=== PATIENT | male | born 1975 | race Caucasian/White ===

== ENCOUNTER 2023-04-07 08:02 | Outpatient (OUT) | payer OTHER, BC, SELFPAY ==
[2023-04-07 08:36] LABS: Basophils Absolute Auto 0.1 10^3/uL (0.0-0.1); Basophils Percent Auto 0.7 % (0.2-2.0); Eosinophils Absolute Auto 0.2 10^3/uL (0.0-0.7); Hematocrit 42.3 % (42.0-54.0); Hemoglobin 14.8 g/dL (14.0-18.0); Immature Granulocytes Abs Auto 0.15 10^3/uL (0.00-0.03); Immature Granulocytes Pct Auto 1.4 % (0.0-0.5); Lymphocytes Absolute Auto 2.8 10^3/uL (1.2-3.8); Lymphocytes Percent Auto 25.6 % (20.5-60.0); Mean Corpuscular Hemoglobin 29.8 pg (25.9-34.0); Mean Corpuscular Volume 85.3 fL (80.0-94.0); Mean Platelet Volume 9.2 fL (9.5-13.5); Monocytes Absolute Auto 0.7 10^3/uL (0.3-0.8); Monocytes Percent Auto 6.2 % (1.7-12.0); Neutrophils Percent Auto 64.1 % (43.0-75.0); Platelet Count 286 10^3/uL (150-450); Red Blood Count 4.96 10^6/uL (4.70-6.10); Red Cell Distribution Width 12.4 % (11.0-15.0)
[2023-04-07 09:24] LABS: Alanine Aminotransferase 25 U/L (16-63); Albumin Globulin Ratio 0.9; Albumin Level 3.6 g/dL (3.4-5.0); Alkaline Phosphatase 90 U/L (46-116); Anion Gap 12.6; Aspartate Amino Transferase 10 U/L (15-37); BUN Creatinine Ratio 16.7; Bilirubin Total 0.8 mg/dL (0.2-1.0); Calcium 8.8 mg/dL (8.5-10.1); Carbon Dioxide 28.3 mmol/L (21.0-32.0); Chloride 103 mmol/L (98-107); Chol HDL Ratio 4.2; Cholesterol 106 mg/dL (<=200); Estimated GFR (African America >60 (>=60); Estimated GFR (Non-African Ame >60 (>=60); Glucose 170 mg/dL (74-106); HDL Cholesterol 25 mg/dL (40-60); Potassium 3.9 mmol/L (3.5-5.1); Sodium 140 mmol/L (136-145); Thyroid Stimulating Hormone 0.439 uIU/mL (0.358-3.740); Total Protein 7.6 g/dL (6.4-8.2); Triglycerides 237 mg/dL (<=150); VLDL CHOLESTEROL 47.4 mg/dL
[2023-04-07 09:47] LABS: Estimated Average Glucose 157 mg/dL; Glycohemoglobin A1C 7.1 % (4.5-6.2)
[2023-04-08 08:10] LABS: Albumin, Random Urine 20.3 ug/mL (Not Estab.)
[2023-04-08 16:12] LABS: Cortisol - AM 8.5 ug/dL (6.2-19.4)
[2023-04-11 04:08] LABS: Aldosterone LCMS, Serum 4.8 ng/dL (0.0-30.0)
[2023-04-12 11:12] LABS: Metanephrine, Pl 25.4 pg/mL (0.0-88.0); Normetanephrine, Pl 40.5 pg/mL (0.0-218.9)
== END 2023-04-07 08:03 | disposition home or self-care (01) ==
LOC: LAB 08:08
PROVIDERS: PCP Internal Medicine; Visit Provider Internal Medicine
DX: E78.5 Hyperlipidemia, unspecified (principal); F41.1 Generalized anxiety disorder; I10 Essential (primary) hypertension; E11.9 Type 2 diabetes mellitus without complications
CPT/HCPCS: 36415; 80053; 80061; 82043; 82088; 82533; 82570; 83036; 84443; 85025

== ENCOUNTER 2024-04-19 13:36 | Outpatient (OUT) | payer OTHER, BC, SELFPAY ==
[2024-04-19 16:00] LABS: Estimated Average Glucose 163 mg/dL; Glycohemoglobin A1C 7.3 % (4.5-6.2)
[2024-04-19 16:15] LABS: Alanine Aminotransferase 28 U/L (16-63); Albumin Globulin Ratio 0.9; Albumin Level 3.6 g/dL (3.4-5.0); Alkaline Phosphatase 80 U/L (46-116); Anion Gap 10.5; Aspartate Amino Transferase 11 U/L (15-37); BUN Creatinine Ratio 18.2; Bilirubin Total 0.9 mg/dL (0.2-1.0); Calcium 9.2 mg/dL (8.5-10.1); Carbon Dioxide 28.9 mmol/L (21.0-32.0); Chloride 99 mmol/L (98-107); Chol HDL Ratio 5.8; Cholesterol 157 mg/dL (<=200); Estimated GFR (African America >60 (>=60); Estimated GFR (Non-African Ame >60 (>=60); Globulin 3.8 g/dL; Glucose 154 mg/dL (74-106); HDL Cholesterol 27 mg/dL (40-60); Potassium 3.4 mmol/L (3.5-5.1); Sodium 135 mmol/L (136-145); Total Protein 7.4 g/dL (6.4-8.2); Triglycerides 430 mg/dL (<=150)
[2024-04-19 16:22] LABS: LDL Cholesterol Direct 78 mg/dL
[2024-04-19 16:51] LABS: Basophils Absolute Auto 0.1 10^3/uL (0.0-0.1); Basophils Percent Auto 0.7 % (0.2-2.0); Eosinophils Absolute Auto 0.2 10^3/uL (0.0-0.7); Eosinophils Percent Auto 1.9 % (0.9-7.0); Hematocrit 46.4 % (42.0-54.0); Hemoglobin 15.9 g/dL (14.0-18.0); Immature Granulocytes Abs Auto 0.17 10^3/uL (0.00-0.03); Immature Granulocytes Pct Auto 1.5 % (0.0-0.5); Lymphocytes Absolute Auto 3.4 10^3/uL (1.2-3.8); Lymphocytes Percent Auto 30.1 % (20.5-60.0); Mean Corpuscular HGB Conc 34.3 g/dL (29.9-35.2); Mean Corpuscular Hemoglobin 29.8 pg (25.9-34.0); Mean Corpuscular Volume 87.1 fL (80.0-94.0); Mean Platelet Volume 10.3 fL (9.5-13.5); Monocytes Absolute Auto 0.7 10^3/uL (0.3-0.8); Monocytes Percent Auto 6.3 % (1.7-12.0); Neutrophils Absolute Auto 6.7 10^3/uL (1.4-6.5); Neutrophils Percent Auto 59.5 % (43.0-75.0); Platelet Count 281 10^3/uL (150-450); Red Blood Count 5.33 10^6/uL (4.70-6.10); Red Cell Distribution Width 12.5 % (11.0-15.0); White Blood Count 11.3 10^3/uL (4.0-11.0)
== END 2024-04-19 13:37 | disposition home or self-care (01) ==
LOC: LAB 13:37
PROVIDERS: PCP Internal Medicine; Visit Provider Internal Medicine
DX: E78.2 Mixed hyperlipidemia (principal); Z95.5 Presence of coronary angioplasty implant and graft; E11.9 Type 2 diabetes mellitus without complications
CPT/HCPCS: 36415; 80053; 80061; 83036; 83721; 85025

== ENCOUNTER 2024-07-20 09:04 | Outpatient (OUT) | payer OTHER, BC, SELFPAY ==
[2024-07-20 09:43] LABS: Creatinine Urine Random 199.21 mg/dL (20.00-300.00); Microalbum Creatinine Ratio Ur 15.5 mg/g (0.0-29.9); Microalbumin Urine Random 3.1 mg/dL (<=30.0)
[2024-07-20 09:55] LABS: Basophils Absolute Auto 0.1 10^3/uL (0.0-0.1); Basophils Percent Auto 0.6 % (0.2-2.0); Eosinophils Absolute Auto 0.2 10^3/uL (0.0-0.7); Eosinophils Percent Auto 1.5 % (0.9-7.0); Hematocrit 46.8 % (42.0-54.0); Hemoglobin 16.5 g/dL (14.0-18.0); Immature Granulocytes Abs Auto 0.08 10^3/uL (0.00-0.03); Immature Granulocytes Pct Auto 0.6 % (0.0-0.5); Lymphocytes Absolute Auto 2.8 10^3/uL (1.2-3.8); Lymphocytes Percent Auto 21.3 % (20.5-60.0); Mean Corpuscular HGB Conc 35.3 g/dL (29.9-35.2); Mean Corpuscular Hemoglobin 30.3 pg (25.9-34.0); Mean Corpuscular Volume 85.9 fL (80.0-94.0); Mean Platelet Volume 10.9 fL (9.5-13.5); Monocytes Absolute Auto 0.6 10^3/uL (0.3-0.8); Monocytes Percent Auto 4.5 % (1.7-12.0); Neutrophils Absolute Auto 9.5 10^3/uL (1.4-6.5); Neutrophils Percent Auto 71.5 % (43.0-75.0); Platelet Count 230 10^3/uL (150-450); Red Blood Count 5.45 10^6/uL (4.70-6.10); Red Cell Distribution Width 11.9 % (11.0-15.0); White Blood Count 13.3 10^3/uL (4.0-11.0)
[2024-07-20 10:03] LABS: Alanine Aminotransferase 28 U/L (16-63); Albumin Globulin Ratio 0.8; Albumin Level 3.2 g/dL (3.4-5.0); Alkaline Phosphatase 96 U/L (46-116); Anion Gap 11.3; Aspartate Amino Transferase 26 U/L (15-37); BUN Creatinine Ratio 13.1; Bilirubin Total 1.1 mg/dL (0.2-1.0); Calcium 8.8 mg/dL (8.5-10.1); Carbon Dioxide 29.7 mmol/L (21.0-32.0); Chloride 98 mmol/L (98-107); Chol HDL Ratio 5.6; Cholesterol 145 mg/dL (<=200); Estimated GFR (African America >60 (>=60 mL/min/1.73m^2); Estimated GFR (Non-African Ame 59 (>=60 mL/min/1.73m^2); Globulin 3.8 g/dL; Glucose 299 mg/dL (74-106); HDL Cholesterol 26 mg/dL (40-60); Sodium 135 mmol/L (136-145); Triglycerides 417 mg/dL (<=150); VLDL CHOLESTEROL 83.4 mg/dL
[2024-07-20 10:07] LABS: Estimated Average Glucose 252 mg/dL; Glycohemoglobin A1C 10.4 % (4.5-6.2)
[2024-07-22 14:29] LABS: LDL Cholesterol Direct 47 mg/dL
== END 2024-07-20 09:05 | disposition home or self-care (01) ==
LOC: LAB 09:07
PROVIDERS: PCP Internal Medicine
DX: E78.2 Mixed hyperlipidemia (principal); I10 Essential (primary) hypertension; E11.9 Type 2 diabetes mellitus without complications
CPT/HCPCS: 36415; 80053; 80061; 82043; 82570; 83036; 83721; 85025

== ENCOUNTER 2024-11-22 15:19 | Outpatient (OUT) | payer OTHER, BC, SELFPAY ==
--- OUTSIDE RECORDS SUMMARY | 2024-11-22 15:39 | XMS_ITS | CCD ---
Author Organization [facility] Care Team Providers Care Business Systems Manager Name Role Phone NOHEMI AGARWAL Primary Care Unavailable BARBARA TONY Admitting Unavailable UNKNOWN, PHYSICIAN Referring Unavailable KIRK RIGGS Attending Unavailable DANTE, MICHAEL Admitting Unavailable DANTE, MICHAEL Attending Unavailable SHAIKH Sukumar LINDER Primary Care Unavailable DANTE, MICHAEL Consulting Unavailable SHAIKH LINDER H Admitting Unavailable SHAIKH Sukumar LINDER Attending Unavailable SHAIKH Sukumar LINDER Consulting Unavailable MISC, DR WRYA Admitting Unavailable MISC, DR WRAY Attending Unavailable STEFANO, DR GARCIA Primary Care Unavailable MISC, DR WRAY Consulting Unavailable STEFANO, DR GARCIA Primary Care Unavailable PAY ., DR ROSE Admitting Unavailable PAY ., DR ROSE Attending Unavailable [place], DR BLAYNE Piedra Consulting Unavailable PAY ., DR ROSE Consulting Unavailable STEFANO, DR GARCIA Primary Care Unavailable HOMAR CORCORAN Admitting Unavailable NILO, HOMAR Attending Unavailable HOMAR CORCORAN Consulting Unavailable KALI ., GHANSHYAM Consulting Unavailable LORI APONTE Consulting Unavailable DANTE, MICHAEL Admitting Unavailable DANTE, MICHAEL Attending Unavailable STEFANO, DR GARCIA Primary Care Unavailable FADI DHILLON Attending Unavailable Niyah FORRESTER, Unavailable Umberto Lindo MD Primary Care Provider [phone] Niko AIR POLLUTION SPECIALIST, Arcelia Unavailable [phone] Arcelia Pope Attending UnavailArcelia Silverman Admitting Unavaila rahul Pope AIR POLLUTION SPECIALIST, Arcelia Unavailable [phone] BRINDA HOWELL Attending Unavailable SHAIKH LINDER Attending Unavailable ARCELIA POPE Attending UnavailARCELIA Angulo Attending Unavailabl katie Allergies Allergy Classification Reported Allergen(s) Allergy Type Date of Onset Reaction(s) Facility (3 sources) Codeine; Translations: [CODEINE] Drug Allergy 04-06-2014 [facility] Repository (16 sources) Codeine Drug Allergy 08-03-2023 Other [facility] Medications Current Medications Medication Drug Class(es) Dates Sig (Normalized) Sig (Original) amLODIPine 10 mg oral tablet (16 sources) Dihydropyridine Calcium Channel Ami Start: 02-19-2024 End: 07-22-2024 take 1 tablet by mouth once daily amLODIPine (Norvasc) 10 MG tablet Indications: Essential (primary) hypertension (CMS/HCC) , Essential hypertension (CMS/HCC) TAKE 1 TABLET BY MOUTH EVERY DAY 90 tablet 1 07/22/2024 Active aspirin 81 mg chewable tablet (19 sources) Platelet Aggregation Inhibitor, Nonsteroidal Anti-inflammatory Drug Start: 07-09-2023 End: 09-19-2024 Aspirin Low Dose 81 MG chewable tablet Indications: Mixed hyperlipidemia (CMS/HCC) CHEW AND SWALLOW 1 TABLET DAILY 90 tablet 1 09/19/2024 Active atorvastatin 80 mg oral tablet (16 sources) HMG-CoA Reductase Inhibitor Start: 05-31-2023 take 1 tablet by mouth at bedtime atorvastatin (Lipitor) 80 MG tablet Take 80 mg by mouth at bedtime 05/31/2023 Active busPIRone hydrochloride 10 mg oral tablet (17 sources) Start: 03-25-2024 End: 04-20-2024 take 1 tablet by mouth twice daily busPIRone (Buspar) 10 MG tablet Indications: Generalized anxiety disorder (CMS/HCC) TAKE 1 TABLET BY MOUTH TWICE A DAY 180 tablet 1 04/20/2024 Active carvedilol 25 mg oral tablet (16 sources) alpha-Adrenergic Ami, beta-Adrenergic Ami Start: 02-22-2024 End: 07-22-2024 take 1 tablet by mouth twice daily carvedilol (Coreg) 25 MG tablet Indications: Essential (primary) hypertension (CMS/HCC) , Essential hypertension (CMS/HCC) TAKE 1 TABLET BY MOUTH TWICE A DAY 180 tablet 1 07/22/2024 Active Continuous Blood Gluc Sensor (FreeStyle Ingrid 2 Sensor) misc (16 sources) Start: 03-06-2023 Continuous Blood Gluc Sensor (FreeStyle Ingrid 2 Sensor) [facility] Units in the morning. 03/06/2023 Active dapagliflozin 5 mg oral tablet (2 sources) Sodium-Glucose Cotransporter 2 Inhibitor Start: 11-06-2024 End: 02-04-2025 take 1 tablet by mouth once daily dapagliflozin (Farxiga) 5 MG Indications: Type 2 diabetes mellitus with other specified complication (CMS/HCC) , Pure hyperglyceridemia (CMS/HCC) , Coronary artery disease involving [place] coronary artery of [place] heart without angina pectoris (CMS/HCC) , Essential (primary) hypertension (CMS/HCC) Take 1 tablet (5 mg) by mouth Daily 90 tablet 11/06/2024 02/04/2025 Active metFORMIN hydrochloride 500 mg oral tablet (19 sources) Biguanide Start: 08-01-2023 End: 07-24-2024 take 1 tablet by mouth in the morning metFORMIN (Glucophage) 500 MG tablet Indications: Type 2 diabetes mellitus without complications (CMS/HCC) Take 1 tablet (500 mg) by mouth in the morning and 1 tablet (500 mg) before bedtime. 180 tablet 07/24/2024 Active omega-3 acid ethyl esters (sen[facility] living) 1000 mg oral capsule (13 sources) Start: 04-24-2024 End: 04-24-2025 take 1 capsule by mouth at bedtime omega-3 acid ethyl esters (Lovaza) 1 g capsule Indications: Mixed hyperlipidemia (CMS/HCC) Take 2 capsules (2 g) by mouth in the morning and 2 capsules (2 g) before bedtime. 120 capsule 11 04/24/2024 04/24/2025 Active semaglutide 14 mg oral tablet (19 sources) Start: 04-25-2024 End: 07-23-2025 take 1 tablet by mouth before mealtime semaglutide (Rybelsus) 14 MG tablet Indications: Type 2 diabetes mellitus without complications (CMS/HCC) Take 1 tablet (14 mg) by mouth in the morning. Take before meals. 30 tablet 11 07/23/2024 07/23/2025 Active Start: 11-13-2023 End: 04-24-2024 take 1 tablet by mouth before mealtime semaglutide (Rybelsus) 7 MG tablet Indications: Type 2 diabetes mellitus without complications (CMS/HCC) Take 1 tablet (7 mg) by mouth in the morning. Take before meals. 90 tablet 11/13/2023 04/24/2024 Discontinued (Dose adjustment) sildenafil 50 mg oral tablet (16 sources) Phosphodiesterase 5 Inhibitor Start: 02-22-2024 sildenafil (Viagra) 50 MG tablet Indications: Other male erectile dysfunction TAKE 1 TAB DAILY NEEDED 30 MINUTES TO 4 HOURS PRIOR TO SEXUAL ACTIVITY 9 tablet 3 02/22/2024 Active varenicline 1 mg oral tablet (20 sources) Partial Cholinergic Nicotinic Agonist Start: 07-24-2024 End: 12-06-2024 take 1 tablet by mouth once in the morning varenicline (Chantix Continuing ) 1 MG tablet Indications: Tobacco dependency Take 1 tablet (1 mg) by mouth in the morning and 1 tablet (1 mg) before bedtime. Take with full glass of water.. 60 tablet 1 11/06/2024 12/06/2024 Active Start: 04-24-2024 take 1 tablet by sis th once daily Varenicline Tartrate, Starter, (Chantix Starting ) 0.5 MG X 11 & 1 MG X 42 tablet therapy pack Indications: Tobacco dependency Take 1 tablet by mouth Daily 53 each 04/24/2024 Active Start: 04-24-2024 take 1 tablet by sis th once daily Varenicline Tartrate, Starter, (Chantix Starting ) 0.5 MG X 11 & 1 MG X 42 tablet therapy pack Indications: Tobacco dependency Take 1 tablet by mouth Daily 53 each 04/24/2024 Active Start: 01-22-2024 End: 10-22-2024 take 1 tablet by mouth once daily Varenicline Tartrate, Starter, 0.5 MG X 11 & 1 MG X 42 tablet therapy pack Indications: Tobacco dependency TAKE 1 TABLET BY MOUTH EVERY DAY DIRECTED ON PACKAGE 53 each 07/22/2024 07/24/2024 Discontinued (Therapy completed) Completed/Discontinued Medications Medication Drug Class(es) Dates Sig (Normalized) Sig (Original) hydroCHLOROthiazide 25 mg / losartan potassium 100 mg oral tablet (18 sources) Thiazide Diuretic, Angiotensin 2 Receptor Ami Start: 02-19-2024 End: 11-06-2024 take 1 tablet by mouth once daily losartan-hydroCHL OROthiazide (Hyzaar) 100-25 MG tablet Indications: Essential (primary) hypertension (CMS/HCC) , Essential hypertension (CMS/HCC) TAKE 1 TABLET BY MOUTH EVERY DAY 90 tablet 1 07/22/2024 11/06/2024 Discontinued (Reorder) Problems Active Problems Problem Classification Problem Date Documented Date Episodic/Chronic Acute myocardial infarction (1 source) Non-ST elevation (NSTEMI) myocardial infarction; Translations: [NON-ST ELEVATION MYOCARDIAL INFARCT] Onset: 03-30-2022 Chronic Anxiety disorders (1 source) Generalized anxiety disorder; Translations: [Generalized anxiety disorder] 04-20-2024 Chronic Coronary atherosclerosis and other heart disease (20 sources) Atherosclerotic heart disease of [place] coronary artery without angina pectoris; Translations: [Old myocardial infarction] Onset: 07-04-2022 Chronic Diabetes mellitus with complications (5 sources) Type 2 diabetes mellitus; Translations: [Type 2 diabetes mellitus with other specified complication] Onset: 11-06-2024 11-06-2024 Chronic Disorders of lipid metabolism (20 sources) Hyperlipidemia, unspecified; Translations: [Mixed hyperlipidemia] Onset: 07-04-2022 Chronic Essential hypertension (20 sources) Essential (primary) hypertension; Translations: [Essential hypertension] Onset: 07-04-2022 Chronic Hypertension with complications and secondary hypertension (2 sources) Hypertensive urgency; Translations: [Hypertensive emergency] Onset: 02-16-2022 Chronic Other male genital disorders (16 sources) Other male erectile dysfunction; Translations: [Impotence of organic origin] Onset: 08-22-2023 08-22-2023 Chronic Substance-related disorders (20 sources) Nicotine dependence, cigarettes, uncomplicated; Translations: [Tobacco dependence syndrome] Onset: 03-30-2022 Resolved: 11-06-2024 08-22-2023 Chronic Unclassified (1 source) CONTACT W/AND (SUSP) EXPOS COVID-19; Translations: [CONTACT W/AND (SUSP) EXPOS COVID-19] Onset: 03-30-2022 Past or Other Problems Problem Classification Problem Date Documented Date Episodic/Chronic Coronary atherosclerosis and other heart disease (6 sources) Presence of coronary angioplasty implant and graft; Translations: [PRESENCE COR ANGPLSTY IMPLANT AND GRAFT] Onset: 04-19-2022 Episodic Diabetes mellitus without complication (20 sources) Type 2 diabetes mellitus without complications; Translations: [Type 2 diabetes mellitus] Onset: 07-04-2022 Resolved: 11-06-2024 08-22-2023 Chronic Nausea and vomiting (4 sources) Vomiting, unspecified; Translations: [Nausea with vomiting, unspecified] Onset: 02-11-2022 Episodic Noninfectious gastroenteritis (1 source) Noninfective gastroenteritis and colitis, unspecified; Translations: [NONINFECTIVE GE AND COLITIS UNS] Onset: 02-16-2022 Episodic Nonspecific chest pain (3 sources) Other chest pain; Translations: [OTHER CHEST PAIN] Onset: 03-28-2022 Episodic Other aftercare (1 source) Other oysterman (current) drug therapy; Translations: [OTH CARE HOME CURRENT DRUG THERAPY] Onset: 03-30-2022 Episodic Other injuries and conditions due to external causes (1 source) Underdosing of other antihypertensive drugs, initial encounter; Translations: [UNDRDOS OTH ANTIHYPERTENSIV RX INIT] Onset: 03-30-2022 Episodic Residual codes; unclassified (1 source) Patient's intentional underdosing of medication regimen for other reason; Translations: [PT INTENT UNDERDOS MED OTH REASON] Onset: 03-30-2022 Episodic Residual codes; unclassified (1 source) Patient's other noncompliance with medication regimen; Translations: [PT OTH NONCOMPLIANCE W/ MED REGIMEN] Onset: 02-16-2022 Episodic Results Test Name Value Interpretation Reference Range Facility LDL Cholesterol Measuredon 1 09-22-2023 LDL Cholesterol Measured 47 mg/dL Normal 0-100 [facility] Comment on above: Result Comment: LDL ATP III CLASSIFICATION LDL less than 100 mg/dL Optimal LDL 100-129 mg/dL Near or above optimal LDL 130-159 mg/dL Borderline high LDL 160-189 mg/dL High LDL greater than 189 mg/dL Very high PERFORMED BY: [place] [address] PATHOLOGIST HAND LEATHER TRIMMER PUSHPA CONWAY M.D. Performed By: #### L DLD, LIPID #### [address] Lipid Panelon 07-22-2024 Cholesterol [Mass/Vol] 144 mg/dL Normal 140-200 [facility] Comment on above: Result Comment: Chol less than 200 mg/dl low risk Chol 201-239 mg/dl borderline risk Chol 240 mg/dl and greater high risk Performed By: #### L DLD, LIPID #### [facility] [address] Cholesterol in HDL [Mass/Vol] 26 mg/dL Normal 23-92 [facility] Comment on above: Result Comment: HDL CHOL ATP-III CLASSIFICATION Cardiovascular Risk HDL > or equal to 60 mg/dL LOW HDL < 40 mg/dL HIGH Performed By: #### L DLD, LIPID #### [facility] [address] Cholesterol.total/C holesterol in HDL [Mass ratio] 5.5 {ratio} Normal <5.0 [facility] Comment on above: Result Comment: PERF ORMED BY: [place] [address] PATHOLOGIST HAND LEATHER TRIMMER PUSHPA CONWAY M.D. Performed By: #### L DLD, LIPID #### [facility] [address] LDL Cholesterol,Calcula griselda 29 mg/dL Normal 0-100 [facility] Comment on above: Result Comment: LDL ATP III CLASSIFICATION LDL less than 100 mg/dL Optimal LDL 100-129 mg/dL Near or above optimal LDL 130-159 mg/dL Borderline high LDL 160-189 mg/dL High LDL greater than 189 mg/dL Very high Performed By: #### L DLD, LIPID #### [facility] [address] Triglyceride w/Reflex 444 mg/dL High 0-149 [facility] Comment on above: Result Comment: TRIG ATP III CLASSIFICATION TRIG less than 150 mg/dL Normal TRIG 150-199 mg/dL Borderline high TRIG 200-500 mg/dL High TRIG greater than 500 mg/dL Very high Standard traceable to the Center for Disease Conrtrol and Prevention (CDC) test method. If the triglyceride result is greater than 400, LDLC and related calculations cannot be calculated and resulted. Performed By: #### L DLD, LIPID #### [facility] [address] VLDL CHOLESTEROL Not performed Normal [facility] Comment on above: Performed By: #### L DLD, LIPID #### [facility] [address] [facility] MICROALB CREAT RATIO RAN DOMon 07-20-2024 CREATININE URINE RANDOM 199.21 mg/dL 20.00 - 300.00 mg/dL [facility] MICROALBUM CREATININE RATIO UR 15.5 mg/g 0.0 - 29.9 mg/g [facility] Comment on above: NO MICROALBUMINURIA 0-29 MG/G CLINICAL MICROALBUMINURIA 30-300 MG/G MACROALBUMINURIA >300 MG/G MICROALBUMIN URINE RANDOM 3.1 mg/dL NINF - 30.0 mg/dL [facility] A1Con 024 Glucose [Mass/Vol] 163 mg/dL [facility] HbA1c (Bld) [Mass fraction] 7.3 % High 4.5 - 6.2 % [facility] Comment on above: ADA RECOMMENDED LIMI T 4.0 - 6.0 ADA THERAPEUTIC TARGET < 7.0 ACTION SUGGESTED > 7.0 Interpretation and review of laboratory results Abnormal [facility] (DIRECT )on 07-04-2022 BILI, CONJUGATED 0.2 mg/dL Normal 0.0-0.2 [facility] Comment on above: Performed By: #### H STROPN, CMADM, LIPA, CMP #### [facility] [address] [place], [place] [address] Dr. Amaya Schultz CREATININE URINEon 2 URINE CREAT 94.14 mg/dL Normal 20.00-300.00 [facility] Comment on above: Performed By: #### C REAU #### [facility] [address] [place], [place] [address] Dr. Amaya Schultz Follow-Upon 07-04-2022 Follow-Up [id number] Omid Nix 1975 M Date Provider Department Center 07/04/2022 FADI PEDERSON [facility] Family History Problem Relation Age of Onset Heart attack Father Family Status - Relation Status Age at Father Level of Service:31745 PA OFFICE/OUTPATIENT ESTABLISHED MOD MDM 30-39 MIN Reason for Visit and Comments: Coronary Artery Disease [187] Hypertension [356536] Normal [facility] LIPID PROFILEon 07-04-2022 CHOL-HDL RATIO NORM SEE BELOW Normal [facility] Comment on above: Result Comment: 3.3 - 4.4 LOW RISK 4.4 - 7.1 AVERAGE RISK 7.1 - 11.0 MODERATE RISK >11.0 HIGH RISK Performed By: #### C MP, LIPID #### [facility] [address] [place] [address] [address] Amaya Schultz Cholesterol [Mass/Vol] 98 mg/dL Normal <=200 [facility] Comment on above: Performed By: #### C MP, LIPID #### [facility] [address] [place] [address] [address] Amaya Schultz Cholesterol in HDL [Mass/Vol] 26 mg/dL Critically low 40-60 [facility] Comment on above: Performed By: #### C MP, LIPID #### [facility] [address] [place] [address] [address] Amaya Schultz Cholesterol in LDL [Mass/Vol] 36.2 mg/dL Normal [facility] Comment on above: Performed By: #### C MP, LIPID #### [facility] [address] [place] [address] [address] Amaya Schultz Cholesterol.total/C holesterol in HDL [Mass ratio] 3.8 {ratio} Normal [facility] Comment on above: Performed By: #### C MP, LIPID #### [facility] [address] [place] [address] [address] Amaya Schultz HDL NORMAL > or = 60 mg/dl - LO W CARDIOVASCULAR RISK <40 mg/dl - HIGH CARDIOVASCULAR RISK Normal [facility] Comment on above: Performed By: #### C MP, LIPID #### [facility] [address] [place] [address] [address] Amaya Schultz LDL CALC NORMAL SEE BELOW Normal [facility] Comment on above: Result Comment: <100 mg/dl OPTIMAL 100 - 129 mg/dl NEAR OR ABOVE OPTIMAL 130 - 159 mg/dl BORDERLINE HIGH 160 - 189 mg/dl HIGH >190 mg/dl VERY HIGH Performed By: #### C MP, LIPID #### [facility] [address] [place] [address] [address] Amaya Schultz Triglyceride [Mass/Vol] 179 mg/dL Critically high <=150 [facility] Comment on above: Performed By: #### C MP, LIPID #### [facility] [address] [place] [address] Dr. Amaya Schultz VLDL CALC 35.8 mg/dL Normal [facility] Comment on above: Performed By: #### C MP, LIPID #### [facility] [address] [place] [address] [address] Amaya Schultz MICROALBUMIN, RAND URon 06-15 mALB <1.3 Normal <=30.0 [facility] Comment on above: Performed By: #### H STROPN, CMADM, LIPA, CMP #### [facility] [address] [place] [address] Dr. Amaya Schultz PROF 14(COMP METB)on 022 Albumin [Mass/Vol] 3.8 g/dL Normal 3.4-5.0 [facility] Comment on above: Performed By: #### C MP, LIPID #### [facility] [address] [place] [address] Dr. Amaya Schultz Albumin/Globulin [Mass ratio] 1.0 {ratio} Normal [facility] Comment on above: Performed By: #### C MP, LIPID #### [facility] [address] [place] [address] Dr. Amaya Schultz ALP [Catalytic activity/Vol] 99 U/L Normal 46-[address] [facility] Comment on above: Performed By: #### C MP, LIPID #### [facility] [address] [place] [address] Dr. Amaya Schultz ALT [Catalytic activity/Vol] 25 U/L Normal 16-63 [facility] Comment on above: Performed By: #### C MP, LIPID #### [facility] [address] [place] [address] Dr. Amaya Schultz Anion gap [Moles/Vol] 10.6 mmol/L Normal [facility] Comment on above: Performed By: #### C MP, LIPID #### [facility] [address] [place] [address] [address] Amaya Schultz AST [Catalytic activity/Vol] 14 U/L Critically low 15-37 [facility] Comment on above: Performed By: #### C MP, LIPID #### [facility] [address] [place] [address] [address] Amaya Schultz Bilirubin [Mass/Vol] 1.0 mg/dL Normal 0.2-1.0 [facility] Comment on above: Performed By: #### C MP, LIPID #### [facility] [address] [place] [address] [address] Amaya Schultz Calcium [Mass/Vol] 8.8 mg/dL Normal 8.5-10.1 [facility] Comment on above: Performed By: #### C MP, LIPID #### [facility] [address] [place] [address] Dr. Amaya Schultz Chloride [Moles/Vol] 99 mmol/L Normal 98-107 [facility] Comment on above: Performed By: #### C MP, LIPID #### [facility] [address] [place] [address] Dr. Amaya Schultz CO2 [Moles/Vol] 28.4 mmol/L Normal 21.0-32.0 [facility] Comment on above: Performed By: #### C MP, LIPID #### [facility] [address] [place] [address] Dr. Amaya Schultz Creatinine [Mass/Vol] 1.10 mg/dL Normal 0.70-1.30 [facility] Comment on above: Performed By: #### C MP, LIPID #### [facility] [address] [place] [address] Dr. Amaya Schultz EGFR-AF TONGAN >60 Normal >=60 [facility] Comment on above: Performed By: #### C MP, LIPID #### [facility] [address] [place] [address] Dr. Amaya Schultz EGFR-NON AF TONGAN >60 Normal >=60 [facility] Comment on above: Performed By: #### C MP, LIPID #### [facility] [address] [place] [address] [address] Amaya Schultz Globulin (S) [Mass/Vol] 3.7 g/dL Normal [facility] Comment on above: Performed By: #### C MP, LIPID #### [facility] [address] [place] [address] [address] Amaya Schultz Glucose [Mass/Vol] 145 mg/dL Critically high 74-106 [facility] Comment on above: Performed By: #### C MP, LIPID #### [facility] [address] [place] [address] [address] Amaya Schultz Potassium [Moles/Vol] 4.0 mmol/L Normal 3.5-5.1 [facility] Comment on above: Performed By: #### C MP, LIPID #### [facility] [address] [place] [address] Dr. Amaya Schultz Protein [Mass/Vol] 7.5 g/dL Normal 6.4-8.2 [facility] Comment on above: Performed By: #### C MP, LIPID #### [facility] [address] [place] [address] Dr. Amaya Schultz Sodium [Moles/Vol] 134 mmol/L Critically low 136-145 [facility] Comment on above: Performed By: #### C MP, LIPID #### [facility] [address] [place] [address] [address] Amaya Schultz Urea nitrogen [Mass/Vol] 28.0 mg/dL Critically high 7.0-18.0 [facility] Comment on above: Performed By: #### C MP, LIPID #### [facility] [address] [place] [address] Dr. Amaya Schultz Urea nitrogen/Creatinine [Mass ratio] 25.5 mg/mg Normal [facility] Comment on above: Performed By: #### C MP, LIPID #### [facility] [address] [place] [address] Dr. Amaya Schultz POC GLUCOSE LABon 04-02-2022 Glucose [Mass/Vol] 196 mg/dL High 70-100 [facility] Comment on above: Performed By: #### 0 [id number], [id number], 23021, [id number], [id number], [id number] #### [facility] [address] [place] [address], [place] BASIC METABOLIC PANELon 03-14 Calcium [Mass/Vol] 8.8 mg/dL Normal 8.6-10.3 [facility] Comment on above: Order Comment: No: D o not add to previous draw Performed By: #### 1 0, [id number] #### [facility] [address] [place] [address], [place] Chloride [Moles/Vol] 105 mmol/L Normal 98-107 [facility] Comment on above: Order Comment: No: D o not add to previous draw Performed By: #### 1 69, [id number] #### [facility] [address] [place] [address], [place] CO2 [Moles/Vol] 21 mmol/L Normal 21-31 [facility] Comment on above: Order Comment: No: D o not add to previous draw Performed By: #### 1 0, [id number] #### [facility] [address] [place] [address], [place] Creatinine [Mass/Vol] 0.80 mg/dL Normal 0.70-1.30 [facility] Comment on above: Order Comment: No: D o not add to previous draw Performed By: #### 1 0, 91647 #### [facility] [address] [place] [address], [place] GFR/1.73 sq M.predicted among non-blacks MDRD (S/P/Bld) [Vol rate/Area] mL/min/{1.73_m2} Normal >60 [facility] Comment on above: Order Comment: No: D o not add to previous draw Result Comment: [facility]'s estimated glomerular filtration rate (eGFR) will no longer include consideration of race in its calculation. The National Kidney Foundation's eGFR Task Force developed new recommendations for the estimation of the glomerular filtration rate in the [place] They recommend immediate implementation of the new equation refit without the race variable in all laboratories because the calculation does not include race. In addition to not including race in the calculation and reporting, it included diversity in its development, and has acceptable performance characteristics and potential consequences that do not disproportionately affect any one group of individuals. Performed By: #### 1 69, [id number] #### [facility] [address] [place] [address], [facility] Glucose [Mass/Vol] 190 mg/dL High 70-100 [facility] Comment on above: Order Comment: No: D o not add to previous draw Performed By: #### 1 69, 11617 #### [facility] [address] [place] [address], [facility] Potassium [Moles/Vol] 4.3 mmol/L Normal 3.5-5.1 [facility] Comment on above: Order Comment: No: D o not add to previous draw Performed By: #### 1 69, 69440 #### [facility] [address] [place] [address], [place] Sodium [Moles/Vol] 133 mmol/L Low 136-145 [facility] Comment on above: Order Comment: No: D o not add to previous draw Performed By: #### 1 69, 34107 #### [facility] [address] [place] [address], [place] Urea nitrogen [Mass/Vol] 13 mg/dL Normal 7-25 [facility] Comment on above: Order Comment: No: D o not add to previous draw Performed By: #### 1 69, 67090 #### [facility] [address] [place] [address], [place] CBC COMPLETE BLOOD COUNTon 0 - Erythrocyte distribution width (RBC) [Ratio] 12.8 % Normal 11.5-15.0 [facility] Comment on above: Order Comment: No: D o not add to previous draw Performed By: #### 0 0071, 68663, 24131, 44403, 67280, 58079 #### [facility] [address] [place] [address], [facility] Hematocrit (Bld) [Volume fraction] 45.0 % Normal 39.0-50.0 [facility] Comment on above: Order Comment: No: D o not add to previous draw Performed By: #### 0 0071, 77893, 68104, 29539, 89232, 45301 #### [facility] [address] [place] [address], [facility] Hemoglobin (Bld) [Mass/Vol] 15.9 g/dL Normal 13.0-17.0 [facility] Comment on above: Order Comment: No: D o not add to previous draw Performed By: #### 0 0071, 00737, 79739, 98831, 59990, 90837 #### [facility] [address] [place] [address], [facility] MCH (RBC) [Entitic mass] 29.6 pg Normal 27.0-33.0 [facility] Comment on above: Order Comment: No: D o not add to previous draw Performed By: #### 0 0071, 89507, 49777, 18963, 24680, 20962 #### [facility] [address] [place] [address], [place] MCHC (RBC) [Mass/Vol] 35.3 g/dL High 32.0-35.0 [facility] Comment on above: Order Comment: No: D o not add to previous draw Performed By: #### 0 0071, 97280, 48228, 35111, 08493, 24897 #### [facility] [address] [place] [address], [place] MCV (RBC) [Entitic vol] 83.8 fL Normal 82.0-98.0 [facility] Comment on above: Order Comment: No: D o not add to previous draw Performed By: #### 0 0071, 83283, 39655, 41389, 70440, 46545 #### [facility] [address] [place] [address], [facility] Nucleated RBC/100 WBC (Bld) [Ratio] 0 % Normal 0-0 [facility] Comment on above: Order Comment: No: D o not add to previous draw Performed By: #### 0 0071, 38997, 53001, 62503, 26984, 76662 #### [facility] [address] [place] [address], [facility] PLAT CNT 249 10*3/uL Normal 150-[address] [facility] Comment on above: Order Comment: No: D o not add to previous draw Performed By: #### 0 0071, 90836, 58829, 38316, 41339, 02027 #### [facility] [address] [place] [address], [facility] RBC (Bld) [#/Vol] 5.37 10*6/uL Normal 4.20-5.70 [facility] Comment on above: Order Comment: No: D o not add to previous draw Performed By: #### 0 0071, 57069, 42414, 68295, 14254, 39953 #### [facility] [address] [place] [address], [facility] WBC (Bld) [#/Vol] 11.52 10*3/uL High 4.00-10.60 [facility] Comment on above: Order Comment: No: D o not add to previous draw Performed By: #### 0 0071, 49124, 90053, 72877, 61131, 48081 #### [facility] [address] [place] [address], [facility] Cardiovascular Lab Reporton 04-01-2022 Cardiovascular Lab Report [facility] Patient Name: Omid Nix [facility] MR #: [id number] Physician: Fadi Shine M.D. Medicine Service Date: 03/31/2022 Division of Birthdate: 1975 Cardiology Room #: [id number] Adult Cardiovascular Services [facility] [address] [place] [id number] Cardiovascular Laboratory Report INDICATION: The patient is a 46-year-old man, who was admitted with spe-AX-pytvoim elevation myocardial infarction. Cardiac catheterization showed severe disease involving the LAD, diagonal, RCA and moderate disease in the circumflex. He was evaluated by Cardiothoracic surgery and deemed not a good candidate for bypass surgery due to small caliber LAD, that was diffusely diseased. Because of that, he was referred for multivessel percutaneous intervention. PROCEDURE: 1. Successful balloon dilatation and drug-eluting stenting of 70% diffuse stenosis in the proximal to mid LAD, reduced to 0% by deployment of a Synergy XD 2.5 x 38 mm drug-eluting stent post dilated up to 3.0 mm at high pressures. 2. Successful balloon dilatation and drug-eluting stenting of 90% ostial to proximal diagonal branch stenosis with a stenosis reduced to 0% by deployment of a Synergy XD 2.25 x 20 mm drug-eluting stent placed in a TAP bifurcation stenting fashion. 3. Successful balloon dilatation and drug-eluting stenting of 90% mid RCA heavy stenosis reduced to 0% by deployment of a Synergy XD 3.5 x 20 mm drug-eluting stent, post dilated to 3.5 mm at high pressures. 4. Administration of intracoronary nitroglycerin. 5. Limited right common femoral angiography. 6. Access in the right common femoral artery under ultrasound guidance. 7. Deployment of Angio-Seal vascular closure device in the right common femoral artery. METHODS: Procedure was explained to the patient with risks and benefits, he signed the consent. He was brought to cath lab technologist in a fasting state. The right groin was prepped and draped in usual fashion. Micropuncture technique and ultrasound guidance were used for access in the right common femoral artery. Inner cannula angiography was performed, followed by upsizing to a 6-Nicarag[place] x 11 cm sheath. Heparin was administered intravenously and therapeutic ACT confirmed during the rest of the procedure and additional heparin given as needed. A 6-Nicaraguan XB3.5 guiding catheter was advanced into the ascending aorta and used to engage the left main coronary artery. Initial setup angiography was performed. A Prowater wire was advanced into the distal 2nd diagonal branch. Another Prowater wire was advanced into the distal LAD. Balloon dilatation in the 2nd diagonal branch ostial to proximal segment was performed using NC Emerge 2.0 x 15 mm balloon inflated repeatedly at 16 atmospheres, this was followed by dilatation in the LAD, proximal to mid segment using NC Emerge 2.5 x 20 mm noncompliant balloon inflated at 16 atmospheres repeatedly. Following that, angiography was performed showing evidence of dissection in the mid LAD. We decided to proceed with stenting of the LAD. A Synergy XD 2.5 x 38 mm drug-eluting stent was advanced and deployed across the proximal to mid LAD at 11 atmospheres. Angiography was performed. Post dilatation of the LAD stent was performed using NC Emerge 2.5 x 20 mm noncompliant balloon inflated up to 16 atmospheres throughout the length of the stented segment in the LAD and angiography was performed. Another Prowater wire was advanced into the 2nd diagonal branch through the LAD stent struts and the previously jailed diagonal branch wire was retracted. At this time, we proceeded with balloon dilatation in the ostium of the 2nd diagonal branch using NC Emerge 2.0 x 15 mm balloon inflated up to 18 atmospheres in the ostial to proximal segment. This was followed by kissing balloon dilatation using NC Emerge 2.0 x 15 mm balloon inflated at 14 atmospheres in the diagonal branch and NC Emerge 2.5 x 20 mm noncompliant balloon inflated at 8 atmospheres in the LAD. Simultaneous deflation of the balloons was performed. Intracoronary nitroglycerin was administered, followed by angiography, which showed evidence of dissection in the diagonal branch. We decided to cover that with a stent, therefore a Synergy XD 2.25 x 20 mm drug-eluting stent was advanced into the 2nd diagonal branch and stenting of the diagonal branch was performed using the T and protrusion, TAP technique. The stent was deployed at 8 atmospheres. The stent balloon was pulled back fci into the LAD and kissing balloon inflation in the LAD and diagonal was performed using the stent balloon in the diagonal branch inflated at 11 atmospheres and the Emerge NC 2.5 x 20 mm noncompliant balloon inflated at 16 atmospheres in the LAD. Angiography was performed. An NC Emerge 3.0 x 8 mm noncompliant balloon (more content not included)... Normal [facility] MAGNESIUM BLOODon 04-01-2022 Magnesium [Mass/Vol] 1.9 mg/dL Normal 1.9-2.7 [facility] Comment on above: Order Comment: No: D o not add to previous draw Performed By: #### 8 [id number] #### [facility] [address] [place] [address], [place] POC GLUCOSE LABon 04-01-2022 Glucose [Mass/Vol] 288 mg/dL High 70-100 [facility] Comment on above: Performed By: #### 8 5499 #### [facility] [address] [place] [address], [place] Glucose [Mass/Vol] 178 mg/dL High 70-100 [facility] Comment on above: Performed By: #### 8 5499 #### [facility] [address] [place] [address], [place] Glucose [Mass/Vol] 182 mg/dL High 70-100 [facility] Comment on above: Performed By: #### 0 0071, 15516, 84324, 11980, 63885, 19901 #### [facility] [address] [place] [address], [place] Glucose [Mass/Vol] 202 mg/dL High 70-100 [facility] Comment on above: Performed By: #### 8 5499 #### [facility] [address] [place] [address], [place] BASIC METABOLIC PANELon 03-14 Calcium [Mass/Vol] 9.0 mg/dL Normal 8.6-10.3 [facility] Comment on above: Order Comment: No: D o not add to previous draw Performed By: #### 8 5499 #### [facility] [address] [place] [address], [place] Chloride [Moles/Vol] 103 mmol/L Normal 98-107 [facility] Comment on above: Order Comment: No: D o not add to previous draw Performed By: #### 8 5499 #### [facility] [address] [place] [address], [place] CO2 [Moles/Vol] 21 mmol/L Normal 21-31 [facility] Comment on above: Order Comment: No: D o not add to previous draw Performed By: #### 8 5499 #### [facility] [address] [place] [address], [facility] Creatinine [Mass/Vol] 0.90 mg/dL Normal 0.70-1.30 [facility] Comment on above: Order Comment: No: D o not add to previous draw Performed By: #### 8 5499 #### [facility] [address] [place] [address], [place] GFR/1.73 sq M.predicted among non-blacks MDRD (S/P/Bld) [Vol rate/Area] mL/min/{1.73_m2} Normal >60 [facility] Comment on above: Order Comment: No: D o not add to previous draw Result Comment: [facility]'s estimated glomerular filtration rate (eGFR) will no longer include consideration of race in its calculation. The National Kidney Foundation's eGFR Task Force developed new recommendations for the estimation of the glomerular filtration rate in the [place] They recommend immediate implementation of the new equation refit without the race variable in all laboratories because the calculation does not include race. In addition to not including race in the calculation and reporting, it included diversity in its development, and has acceptable performance characteristics and potential consequences that do not disproportionately affect any one group of individuals. Performed By: #### 8 [id number] #### [facility] [address] [place] [address], [place] Glucose [Mass/Vol] 247 mg/dL High 70-100 [facility] Comment on above: Order Comment: No: D o not add to previous draw Performed By: #### 8 5499 #### [facility] [address] [place] [address], [place] Potassium [Moles/Vol] 4.1 mmol/L Normal 3.5-5.1 [facility] Comment on above: Order Comment: No: D o not add to previous draw Performed By: #### 8 5499 #### [facility] [address] [place] [address], [place] Sodium [Moles/Vol] 131 mmol/L Low 136-145 [facility] Comment on above: Order Comment: No: D o not add to previous draw Performed By: #### 8 5499 #### [facility] [address] [place] [address], [place] Urea nitrogen [Mass/Vol] 20 mg/dL Normal 7-25 [facility] Comment on above: Order Comment: No: D o not add to previous draw Performed By: #### 8 [id number] #### [facility] [address] [place] [address], [place] CBC COMPLETE BLOOD COUNTon - Erythrocyte distribution width (RBC) [Ratio] 12.5 % Normal 11.5-15.0 [facility] Comment on above: Order Comment: No: D o not add to previous draw Performed By: #### 8 [id number] #### [facility] [address] [place] [address], [facility] Hematocrit (Bld) [Volume fraction] 46.6 % Normal 39.0-50.0 [facility] Comment on above: Order Comment: No: D o not add to previous draw Performed By: #### 8 [id number] #### [facility] [address] [place] [address], [place] Hemoglobin (Bld) [Mass/Vol] 16.5 g/dL Normal 13.0-17.0 [facility] Comment on above: Order Comment: No: D o not add to previous draw Performed By: #### 8 5499 #### [facility] [address] [place] [address], [facility] MCH (RBC) [Entitic mass] 29.4 pg Normal 27.0-33.0 [facility] Comment on above: Order Comment: No: D o not add to previous draw Performed By: #### 8 [id number] #### [facility] [address] [place] [address], [facility] MCHC (RBC) [Mass/Vol] 35.4 g/dL High 32.0-35.0 [facility] Comment on above: Order Comment: No: D o not add to previous draw Performed By: #### 8 [id number] #### [facility] [address] [place] [id number], [facility] MCV (RBC) [Entitic vol] 82.9 fL Normal 82.0-98.0 [facility] Comment on above: Order Comment: No: D o not add to previous draw Performed By: #### 8 [id number] #### [facility] [address] [place] [id number], [facility] Nucleated RBC/100 WBC (Bld) [Ratio] 0 % Normal 0-0 [facility] Comment on above: Order Comment: No: D o not add to previous draw Performed By: #### 8 [id number] #### [facility] [address] [place] [id number], [facility] PLAT CNT 253 10*3/uL Normal 150-[address] [facility] Comment on above: Order Comment: No: D o not add to previous draw Performed By: #### 8 5499 #### [facility] [address] [place] [id number], [facility] RBC (Bld) [#/Vol] 5.62 10*6/uL Normal 4.20-5.70 [facility] Comment on above: Order Comment: No: D o not add to previous draw Performed By: #### 8 5499 #### [facility] [address] [place] [address], [place] WBC (Bld) [#/Vol] 10.77 10*3/uL High 4.00-10.60 [facility] Comment on above: Order Comment: No: D o not add to previous draw Performed By: #### 8 5499 #### [facility] [address] [place] [address], [place] MAGNESIUM BLOODon 03-31-2022 Magnesium [Mass/Vol] 1.9 mg/dL Normal 1.9-2.7 [facility] Comment on above: Order Comment: No: D o not add to previous draw Performed By: #### 8 5499 #### [facility] [address] [place] [address], [place] POC GLUCOSE LABon 03-31-2022 Glucose [Mass/Vol] 251 mg/dL High 70-100 [facility] Comment on above: Performed By: #### 8 5499 #### [facility] [address] [place] [address], [place] Glucose [Mass/Vol] 245 mg/dL High 70-100 [facility] Comment on above: Performed By: #### 0 0071, 22509, 54533, 71739, 63772, 94966 #### [facility] [address] [place] [address], [place] Glucose [Mass/Vol] 221 mg/dL High 70-100 [facility] Comment on above: Performed By: #### 0 0071, 49367, 90833, 74634, 50679, 60100 #### [facility] [address] [place] [address], [place] Glucose [Mass/Vol] 227 mg/dL High 70-100 [facility] Comment on above: Performed By: #### 8 5499 #### [facility] [address] [place] [address], [facility] UFH HEPARIN ASSAYon 03-31-20 UNFRACTIONATED HEPARIN 0.44 IU/mL Normal 0.30-0.70 [facility] Comment on above: Result Comment: Anum roxaban and Apixaban will interfere with the anti Xa assay used to monitor UFH and LMWH. Performed By: #### 0 0071, 63125, 27875, 59643, 11398, 67919 #### [facility] [address] [place] [address], [facility] UNFRACTIONATED HEPARIN 0.33 IU/mL Normal 0.30-0.70 [facility] Comment on above: Result Comment: Anum roxaban and Apixaban will interfere with the anti Xa assay used to monitor UFH and LMWH. Performed By: #### 0 0071, 96650, 13865, 13258, 59018, 77184 #### [facility] [address] [place] [address], [facility] POC GLUCOSE LABon 03-30-2022 Glucose [Mass/Vol] 203 mg/dL High 70-100 [facility] Comment on above: Performed By: #### 8 5499 #### [facility] [address] [place] [address], [place] Glucose [Mass/Vol] 234 mg/dL High 70-100 [facility] Comment on above: Performed By: #### 8 5499 #### [facility] [address] [place] [address], [place] Glucose [Mass/Vol] 180 mg/dL High 70-100 [facility] Comment on above: Performed By: #### 8 5499 #### [facility] [address] [place] [address], [place] Glucose [Mass/Vol] 226 mg/dL High 70-100 [facility] Comment on above: Performed By: #### 8 5499 #### [facility] [address] [facility] POC SARS COV2 ANTIGEN NEGATI VEon 03-30-2022 POC SARS COV2 ANTIGEN NEG Negative Normal NEGATIVE [facility] Comment on above: Result Comment: Nega tive results should be treated as presumptive and confirmation with a molecular assay, if necessary, for patient management, may be performed. Negative results do not rule out SARS-CoV-2 infection and not should be used as the sole basis for treatment or patient management decisions, including infection control decisions. Negative results should be considered in the context of a patient's recent exposures, history, and the presence of clinical signs and symptoms consistent with COVID-19. The Clarity COVID-19 Antigen Rapid Test Cassette is a rapid chromatographic immunoassay intended for the qualitative detection of the nucleocapsid protein antigen from SARS-CoV-2 in direct nasopharyngeal swab (AIR POLLUTION SPECIALIST) specimens from individuals who are suspected of COVID-19 by their healthcare provider within the first six days of symptom onset. Testing is limited to laboratories certified under the Clinical Laboratory Improvement Amendments of 1988 (CLIA), 42 U.S.C. ???263a, that meet the requirements to perform moderate complexity, high complexity, or waived tests. This test is authorized for use at the Point of Care (POC), i.e., in patient care settings operating under a CLIA Certificate of Waiver, Certificate of Compliance, or Certificate of Accreditation. Performed By: #### 8 5499 #### [facility] [address] [place] [address], [facility] UFH HEPARIN ASSAYon 03-30-20 UNFRACTIONATED HEPARIN 0.23 IU/mL Low 0.30-0.70 [facility] Comment on above: Result Comment: Anum roxaban and Apixaban will interfere with the anti Xa assay used to monitor UFH and LMWH. Performed By: #### 0 0071, 46532, 01179, 59361, 91501, 78832 #### [facility] [address] [facility] UNFRACTIONATED HEPARIN 0.29 IU/mL Low 0.30-0.70 [facility] Comment on above: Result Comment: [place] roxaban and Apixaban will interfere with the anti Xa assay used to monitor UFH and LMWH. Performed By: #### 0 0071, 38692, 00591, 78235, 42359, 15682 #### [facility] [address] UNFRACTIONATED HEPARIN 0.33 IU/mL Normal 0.30-0.70 [facility] Comment on above: Result Comment: [place] roxaban and Apixaban will interfere with the anti Xa assay used to monitor UFH and LMWH. Performed By: #### 8 5499 #### [facility] [address] [facility] *MRSA/MSSA DNA NASALon 03-29 *MRSA/MSSA DNA NASAL Clinical Report: (D) Specimen: NASAL SWAB Collected: 03/29/2022 12:46 Status: Final Last Updated: 03/30/2022 13:40 MSSA DNA (Final) Negative MRSA DNA (Final) Negative Normal [facility] Comment on above: Performed By: #### 8 5499 #### [facility] [address] [facility] APTTon 03-29-2022 aPTT Coag (Bld) [Time] 44.3 s High 25.0-35.0 [facility] Comment on above: Order Comment: No: D o not add to previous draw Result Comment: ALL RESULTS MUST BE INTERPRETED WITH RESPECT TO BLOOD DRAWING ARTIFACT OR DILUTION ERROR OF ANTICOAGULANT AT THE TIME OF SAMPLING. THE APTT SHOULD NOT BE USED TO MONITOR UNFRACTIONATED HEPARIN THERAPY, THIS LABORATORY NO LONGER HAS AN ESTABLISHED THERAPEUTIC RANGE BASED ON THE APTT. IT IS RECOMMENDED THAT THE UFH - HEPARIN ASSAY (ANTI-XA ACTIVITY) BE USED FOR THIS PURPOSE. Performed By: #### 0 0071, 20652, 53673, 31930, 45801, 69893 #### [facility] [address] [address] BASIC METABOLIC PANELon 03-14 Calcium [Mass/Vol] 8.5 mg/dL Low 8.6-10.3 [facility] Comment on above: Order Comment: No: D o not add to previous draw Performed By: #### 0 0071, 78541, 22681, 91398, 38315, 18733 #### [facility] [address] [place] [address], [place] Chloride [Moles/Vol] 106 mmol/L Normal 98-107 [facility] Comment on above: Order Comment: No: D o not add to previous draw Performed By: #### 0 0071, 90193, 01829, 94854, 50171, 25864 #### [facility] [address] [place] [address], [place] CO2 [Moles/Vol] 25 mmol/L Normal 21-31 [facility] Comment on above: Order Comment: No: D o not add to previous draw Performed By: #### 0 0071, 09126, 29511, 94764, 86786, 38840 #### [facility] [address] [place] [address], [place] Creatinine [Mass/Vol] 0.88 mg/dL Normal 0.70-1.30 [facility] Comment on above: Order Comment: No: D o not add to previous draw Performed By: #### 0 0071, 11519, 62072, 71798, 59520, 64443 #### [facility] [address] [place] [address], [facility] GFR/1.73 sq M.predicted among non-blacks MDRD (S/P/Bld) [Vol rate/Area] mL/min/{1.73_m2} Normal >60 [facility] Comment on above: Order Comment: No: D o not add to previous draw Result Comment: [facility]'s estimated glomerular filtration rate (eGFR) will no longer include consideration of race in its calculation. The National Kid[employer] Foundation's eGFR Task Force developed new recommendations for the estimation of the glomerular filtration rate in the [place] They recommend immediate implementation of the new equation refit without the race variable in all laboratories because the calculation does not include race. In addition to not including race in the calculation and reporting, it included diversity in its development, and has acceptable performance characteristics and potential consequences that do not disproportionately affect any one group of individuals. Performed By: #### 0 0071, 98938, 65119, 57681, 38175, 23520 #### [facility] [address] [place] [address], [place] Glucose [Mass/Vol] 219 mg/dL High 70-100 [facility] Comment on above: Order Comment: No: D o not add to previous draw Performed By: #### 0 0071, 32664, 74986, 99622, 76548, 82590 #### [facility] [address] [place] [address], [place] Potassium [Moles/Vol] 4.0 mmol/L Normal 3.5-5.1 [facility] Comment on above: Order Comment: No: D o not add to previous draw Performed By: #### 0 0071, 22436, 78332, 53458, 17634, 88472 #### [facility] [address] [place] [address], [place] Sodium [Moles/Vol] 138 mmol/L Normal 136-145 [facility] Comment on above: Order Comment: No: D o not add to previous draw Performed By: #### 0 0071, 86302, 86279, 78003, 90377, 16918 #### [facility] [address] [place] [address], [place] Urea nitrogen [Mass/Vol] 20 mg/dL Normal 7-25 [facility] Comment on above: Order Comment: No: D o not add to previous draw Performed By: #### 0 0071, 32729, 98166, 51790, 89947, 35360 #### [facility] [address] [place] [address], [place] CBC COMPLETE BLOOD COUNTon 0 - Erythrocyte distribution width (RBC) [Ratio] 12.5 % Normal 11.5-15.0 [facility] Comment on above: Order Comment: No: D o not add to previous draw Performed By: #### 0 0071, 78918, 93694, 68918, 41289, 56309 #### [facility] [address] [place] [address], [facility] Hematocrit (Bld) [Volume fraction] 43.3 % Normal 39.0-50.0 [facility] Comment on above: Order Comment: No: D o not add to previous draw Performed By: #### 0 0071, 07605, 25935, 21773, 54842, 13805 #### [facility] [address] [place] [address], [facility] Hemoglobin (Bld) [Mass/Vol] 14.7 g/dL Normal 13.0-17.0 [facility] Comment on above: Order Comment: No: D o not add to previous draw Performed By: #### 0 0071, 07015, 67586, 38372, 47925, 57097 #### [facility] [address] [place] [address], [facility] MCH (RBC) [Entitic mass] 29.2 pg Normal 27.0-33.0 [facility] Comment on above: Order Comment: No: D o not add to previous draw Performed By: #### 0 0071, 26636, 05517, 91616, 39499, 55204 #### [facility] [address] [place] [address], [place] MCHC (RBC) [Mass/Vol] 33.9 g/dL Normal 32.0-35.0 [facility] Comment on above: Order Comment: No: D o not add to previous draw Performed By: #### 0 0071, 41314, 91973, 48823, 51262, 03794 #### [facility] [address] [place] [address], [facility] MCV (RBC) [Entitic vol] 85.9 fL Normal 82.0-98.0 [facility] Comment on above: Order Comment: No: D o not add to previous draw Performed By: #### 0 0071, 04944, 13938, 62984, 93733, 53228 #### [facility] [address] [place] [address], [facility] Nucleated RBC/100 WBC (Bld) [Ratio] 0 % Normal 0-0 [facility] Comment on above: Order Comment: No: D o not add to previous draw Performed By: #### 0 0071, 68340, 29415, 04112, 04766, 95023 #### [facility] [address] [place] [address], [facility] PLAT CNT 258 10*3/uL Normal 150-[address] [facility] Comment on above: Order Comment: No: D o not add to previous draw Performed By: #### 0 0071, 18642, 20276, 74081, 41725, 10411 #### [facility] [address] [place] [address], [facility] RBC (Bld) [#/Vol] 5.04 10*6/uL Normal 4.20-5.70 [facility] Comment on above: Order Comment: No: D o not add to previous draw Performed By: #### 0 0071, 61163, 74635, 29082, 89149, 64771 #### [facility] [address] [place] [address], [facility] WBC (Bld) [#/Vol] 12.17 10*3/uL High 4.00-10.60 [facility] Comment on above: Order Comment: No: D o not add to previous draw Performed By: #### 0 0071, 68353, 51248, 98456, 29085, 50471 #### [facility] [address] [place] [address], [facility] Cardiovascular Lab Reporton 03-29-2022 Cardiovascular Lab Report [facility] Patient Name: Omid Nix [facility] MR #: [id number] Physician: Fadi Garcia of Jan[facility]hillon Medicine Service Date: 03/28/2022 Division of Birthdate: 1975 Cardiology Room #: [id number] Adult Cardiovascular Services [facility] [address] [place], [place] [address] Cardiovascular Laboratory Report INDICATION: The patient is a 46-year-old man with no known prior medical history, who presented with typical anginal pain and elevated cardiac enzymes consistent with pum-PM-reoasil elevation myocardial infarction. He was transferred from the [facility] to our center for further management. He was found to be significantly hypertensive and very elevated blood sugar suggesting uncontrolled systemic hypertension and diabetes. He was referred for cardiac catheterization. PROCEDURE: Bilateral selective coronary angiography from the right radial access. METHODS: Procedure was explained to the patient with risks and benefits, he signed informed consent. He was brought to cath lab technologist in a fasting state. The right wrist area was prepped and draped in usual fashion. Micropuncture technique was used for access in the right radial artery. A 6-Nicaraguan x 11 cm hydrophilic sheath was advanced, verapamil was given through the sheath and heparin was administered intravenously. Bilateral selective coronary angiography was then performed using 6-Nicaraguan JL3.5 and JR5 diagnostic catheters. Catheters were removed. Procedure was concluded. Note that the patient developed radial spasm toward the end of the procedure and intra-arterial nitroglycerin 200 mcg were administered to facilitate retrieval of the access sheath. A TR band was placed for hemostasis. He tolerated the procedure well and he was transferred back to his room. TOTAL SEDATION TIME: 70 minutes. TOTAL FLUORO TIME: 3.67 minutes. TOTAL AIR KERMA: 480 mGy. TOTAL CONTRAST VOLUME: 45 mL. HEMODYNAMICS: AO 197/108, mean 142. CORONARY ANGIOGRAPHY: 1. This is a right dominant circulation. 2. Left main: This arises from left coronary cusp. It bifurcates into left anterior descending and circumflex vessels. Left main is free of significant disease. 3. Left anterior descending: This is a large vessel. It has diffuse 70% stenosis in the mid segment spanning the whole length of the mid LAD. There are 2 large size diagonal branches coming off the mid LAD. The first one has mild disease. The second one has a 90% ostial stenosis. The distal LAD is of smaller caliber, but is free of significant disease. 4. Circumflex vessel: This is large and nondominant. It has mild diffuse disease. The mid circumflex has 50% diffuse stenosis. 5. Right coronary artery: This arises from the right coronary cusp. It is a large and dominant vessel. It has a 90% hazy mid segment stenosis. Distally, it bifurcates into PDA and PLV branches. There is evidence of 70% stenosis at the ostium of the PDA and 70% stenosis at the ostium of the PLV branch. Beyond that, the PDA and PLV branches are free of significant disease. SUMMARY OF THE FINDINGS: 1. Severe 2-vessel coronary artery disease. 2. 90% hazy stenosis in the mid RCA with 70% stenosis at the ostia of the PDA and PLV branches of the RCA. 3. 50% stenosis in the mid circumflex. 4. 70% diffuse mid LAD stenosis and 90% stenosis at the ostium of the 2nd large diagonal branch. 5. Minimal disease in the left main. RECOMMENDATIONS: Given the patient's significant three-vessel disease and diabetes, it is recommended to have a Heart Team approach with Cardiothoracic Surgery Service to determine the best option for revascularization of his coronary artery disease. Should stenting be decided as an option, this should be performed via femoral access given significant radial artery spasm during the diagnostic procedure. Electronically Signed by: Fadi Dhillon M.D. 03/29/2022 10:06 P Fadi Dhillon M.D. Date Dict: 03/28/2022/03:30 P/Fadi Dhillon M.D. Date Trans: 03/29/2022 08:01 Jayden/reg [id number] cc: Nohemi Agarwal M.D. [address] [place] [address] Normal [facility] HEMOGLOBIN A1Con 03-29-2022 Glucose [Moles/Vol] 214 mmol/L Normal [facility] Comment on above: Order Comment: No: D o not add to previous draw Performed By: #### 0 0071, 69650, 79076, 04015, 73049, 88986 #### [facility] [address] [place] [address], [facility] HbA1c (Bld) [Mass fraction] 9.1 % High 4.0-6.0 [facility] Comment on above: Order Comment: No: D o not add to previous draw Performed By: #### 0 0071, 05486, 88125, 64415, 50165, 71333 #### [facility] [address] [place] [address], [facility] LIPID PROFILEon 03-29-2022 Cholesterol [Mass/Vol] 132 mg/dL Normal 120-200 [facility] Comment on above: Order Comment: No: D o not add to previous draw Result Comment: CHOL ESTEROL REFERENCE RANGE: 20 YEARS AND OLDER CARDIOVASCULAR RISK Less than 200 mg/dl Low Risk 200 to 239 mg/dl Borderline Risk 240 mg/dl and greater High Risk Performed By: #### 0 0071, 43100, 55223, 34180, 59467, 22653 #### [facility] [address] [place] [address], [facility] Cholesterol in HDL [Mass/Vol] 20 mg/dL Low 23-92 [facility] Comment on above: Order Comment: No: D o not add to previous draw Result Comment: Slig ht variation in normal range could be due to gender and/or age. HDL CHOLESTEROL REFERENCE RANGE: 20 years and older Cardiovascular Risk > or =60 mg/dL Desirable 40 TO 59 mg/dL Low Risk <40 mg/dL High Risk Performed By: #### 0 0071, 69223, 96104, 50690, 55802, 37357 #### [facility] [address] [place] [address], [facility] Cholesterol in LDL [Mass/Vol] 47 mg/dL Normal 0-130 [facility] Comment on above: Order Comment: No: D o not add to previous draw Result Comment: LDL IS A CALCULATION LDL IS ONLY VALID IF THE TRIG IS LESS THAN 400. Performed By: #### 0 0071, 37615, 56821, 17380, 48465, 61778 #### [facility] [address] [place] [address], [facility] Cholesterol.total/C holesterol in HDL [Mass ratio] 6.6 {ratio} High .0-4.5 [facility] Comment on above: Order Comment: No: D o not add to previous draw Performed By: #### 0 0071, 46553, 23507, 85462, 12622, 84155 #### [facility] [address] [place] [address], [facility] NON-HDL CHOLESTEROL 112 mg/dL Normal [facility] Comment on above: Order Comment: No: D o not add to previous draw Performed By: #### 0 0071, 50011, 00211, 48462, 10518, 91310 #### [facility] [address] [place] [address], [facility] Triglyceride [Mass/Vol] 325 mg/dL High 40-149 [facility] Comment on above: Order Comment: No: D o not add to previous draw Result Comment: TRIG LYCERIDE REFERENCE RANGE: 20 YEARS AND OLDER CARDIOVASCULAR RISK LESS THAN 150 mg/dl LOW RISK 150 TO 199 mg/dl BORDERLINE RISK 200 mg/dl AND GREATER HIGH RISK Performed By: #### 0 0071, 67715, 95785, 15615, 42263, 41025 #### [facility] [address] [place] [address], [facility] VLDL CHOL 65 mg/dL High 0-40 [facility] Comment on above: Order Comment: No: D o not add to previous draw Performed By: #### 0 0071, 37771, 33833, 55962, 52796, 74941 #### [facility] [address] [place] [address], [facility] LIVER BATTERYon 03-29-2022 Albumin [Mass/Vol] 3.5 g/dL Normal 3.5-5.7 [facility] Comment on above: Order Comment: No: D o not add to previous draw Performed By: #### 0 0071, 22011, 94740, 90320, 44387, 49374 #### [facility] [address] [place] [address], [place] ALKALINE PHOSPH 93 IU/L Normal 34-104 [facility] Comment on above: Order Comment: No: D o not add to previous draw Performed By: #### 0 0071, 59391, 04501, 18792, 65936, 46705 #### [facility] [address] [place] [address], [place] ALT [Catalytic activity/Vol] 14 U/L Normal 7-52 [facility] Comment on above: Order Comment: No: D o not add to previous draw Performed By: #### 0 0071, 23360, 33332, 39470, 83859, 91027 #### [facility] [address] [place] [address], [place] AST [Catalytic activity/Vol] 9 U/L Low 13-39 [facility] Comment on above: Order Comment: No: D o not add to previous draw Performed By: #### 0 0071, 85943, 85976, 83500, 29585, 68746 #### [facility] [address] [place] [address], [place] Bilirubin [Mass/Vol] 1.2 mg/dL High 0.3-1.0 [facility] Comment on above: Order Comment: No: D o not add to previous draw Performed By: #### 0 0071, 83651, 20350, 06525, 07766, 34712 #### [facility] [address] [place] [address], [place] Bilirubin.direct [Mass/Vol] 0.2 mg/dL Normal 0.0-0.2 [facility] Comment on above: Order Comment: No: D o not add to previous draw Performed By: #### 0 0071, 44043, 81748, 37826, 27369, 42835 #### [facility] [address] [place] [address], [place] Protein [Mass/Vol] 5.8 g/dL Low 6.0-8.3 [facility] Comment on above: Order Comment: No: D o not add to previous draw Performed By: #### 0 0071, 72449, 45866, 31921, 47133, 37937 #### [facility] [address] [place] [address], [place] MAGNESIUM BLOODon 03-29-2022 Magnesium [Mass/Vol] 2.0 mg/dL Normal 1.9-2.7 [facility] Comment on above: Order Comment: No: D o not add to previous draw Performed By: #### 0 0071, 37198, 85514, 31344, 35112, 33284 #### [facility] [address] [place] [address], [place] PHOSPHORUS BLOODon Phosphate [Mass/Vol] 3.3 mg/dL Normal 2.5-5.0 [facility] Comment on above: Order Comment: No: D o not add to previous draw Performed By: #### 0 0071, 83001, 53097, 25400, 28249, 76212 #### [facility] [address] [place] [address], [place] POC GLUCOSE LABon 03-29-2022 Glucose [Mass/Vol] 207 mg/dL High 70-100 [facility] Comment on above: Performed By: #### 0 0071, 22365, 32310, 78362, 10350, 66025 #### [facility] [address] [place] [address], [place] Glucose [Mass/Vol] 213 mg/dL High 70-100 [facility] Comment on above: Performed By: #### 8 5499 #### [facility] [address] [place] [address], [place] Glucose [Mass/Vol] 275 mg/dL High 70-100 [facility] Comment on above: Performed By: #### 8 5499 #### [facility] [address] [place] [address], [place] Glucose [Mass/Vol] 272 mg/dL High 70-100 [facility] Comment on above: Performed By: #### 8 5499 #### [facility] [address] [place] [address], [place] Glucose [Mass/Vol] 294 mg/dL High 70-100 [facility] Comment on above: Performed By: #### 0 0071, 55265, 69759, 11176, 29017, 36946 #### [facility] [address] [place] [address], [facility] PORTABLE CHEST 1 VIEWon 03-14 PORTABLE CHEST 1 VIEW [facility] Department of Radiology [address] [place] [id number] ===== Patient Name: OMID NIX : 1975 Sex: M Age: Race: White Pt. Location: [id number] Patient Status: I Ordered Date: 03/29/2022 10:10:00 AM Completed Date: 03/29/2022 01:05 PM Requesting Provider: RON REZA Attending Provider: KIRK RIGGS Report Copy To: Signs & Symptoms: Pre-Op Evaluation History: Comments: Atelectasis Exam: PORTABLE CHEST 1 VIEW ===== PORTABLE CHEST 1 VIEW 03/29/2022 1:05 PM CLINICAL INDICATIONS: Pre-Op Evaluation TECHNOLOGIST COMMENTS: patient states pre op for open heart surgery QUESTION FOR THE RADIOLOGIST: Atelectasis PROTOCOL: AP(PA) view was obtained. COMPARISON: None Impression: 1. The lungs are clear. There are no effusions or pneumothorax. The mediastinal structures are unremarkable. Electronically signed: Chuck Covington. Transcribed by: [email or web address], User Resident: Electronically Signed by: CHUCK COVINGTON @ 03/29/2022 01:12 PM Normal [facility] Comment on above: Order Comment: Atele ctasis PROTHROMBIN TIMEon INR Coag (PPP) [Relative time] 1.10 {INR} Normal 0.91-1.16 [facility] Comment on above: Order Comment: No: D o not add to previous draw Result Comment: ACCC P RECOMMENDED INR FOR WARFARIN THERAPY ------ ------- CONDITION INR PROPHYLAXIS OF VENOUS THROMBOSIS 2-3 (HIGH-RISK SURGERY) TREATMENT OF VENOUS THROMBOSIS 2-3 TREATMENT OF PULMONARY EMBOLISM 2-3 PREVENTION OF SYSTEMIC EMBOLISM: 2-3 ACUTE MYOCARDIAL INFARCTION TISSUE HEART VALVES VALVULAR HEART DISEASE ATRIAL FIBRILLATION RECURRENT SYSTEMIC EMBOLISM MECHANICAL HEART VALVE 2.5-3.5 FROM: ORAL ANTICOAGULANTS. MECHANISM OF ACTION, CLINICAL EFFECTIVENESS, AND OPTIMAL THERAPEUTIC RANGE. CHEST 1995;108:231S-246S. Performed By: #### 0 0071, 16095, 26010, 13925, 26323, 36422 #### [facility] [address] PT Coag (PPP) [Time] 14.2 s Normal 12.3-14.8 [facility] Comment on above: Order Comment: No: D o not add to previous draw Result Comment: ALL RESULTS MUST BE INTERPRETED WITH RESPECT TO BLOOD DRAWING ARTIFACT OR DILUTION ERROR OF ANTICOAGULANT AT THE TIME OF SAMPLING. Performed By: #### 0 0071, 27807, 07683, 36510, 04059, 68204 #### [facility] [address] TROPONIN-Ion 03-29-2022 Troponin I.cardiac [Mass/Vol] 0.15 ng/mL Critically high 0.00-0.04 [facility] Comment on above: Result Comment: M-PA EVIOUS CRITICAL RESULT REFERENCE RANGES: 0.00 - 0.04 ng/ml NORMAL 0.05 - 0.50 ng/ml INDETERMINATE > 0.50 ng/ml CONSISTENT WITH AN M.I. Performed By: #### 0 0071, 37423, 35026, 49531, 35761, 42066 #### [facility] [address] [facility] TSH3on 03-29-2022 TSH 3RD GENERATION 0.88 uIU/mL Normal 0.34-5.60 [facility] Comment on above: Order Comment: No: D o not add to previous draw Performed By: #### 0 0071, 83704, 18788, 36962, 99997, 43338 #### [facility] [address] UFH HEPARIN ASSAYon 03-29-20 UNFRACTIONATED HEPARIN 0.22 IU/mL Low 0.30-0.70 [facility] Comment on above: Result Comment: Anum roxaban and Apixaban will interfere with the anti Xa assay used to monitor UFH and LMWH. Performed By: #### 0 0071, 50709, 52504, 11825, 63329, 24651 #### [facility] [address] [place] [address], [facility] UNFRACTIONATED HEPARIN 0.15 IU/mL Critically low 0.30-0.70 [facility] Comment on above: Result Comment: Resu lt checked and called. Accurately read back by Josiane Sosa @1341 Rivaroxaban and Apixaban will interfere with the anti Xa assay used to monitor UFH and LMWH. Performed By: #### 0 0071, 13748, 27446, 20767, 37537, 85537 #### [facility] [address] [place] [address], [facility] UNFRACTIONATED HEPARIN 0.14 IU/mL Critically low 0.30-0.70 [facility] Comment on above: Order Comment: No: D o not add to previous draw Result Comment: Resu lt checked and called. Accurately read back by Nurse [id number] @0711 Rivaroxaban and Apixaban will interfere with the anti Xa assay used to monitor UFH and LMWH. Performed By: #### 0 0071, 18519, 52703, 01279, 00603, 86056 #### [facility] [address] [place] [address], [facility] UNFRACTIONATED HEPARIN 0.11 IU/mL Critically low 0.30-0.70 [facility] Comment on above: Result Comment: Resu lt checked and called. Accurately read back by Shona Chavez at 0015 Rivaroxaban and Apixaban will interfere with the anti Xa assay used to monitor UFH and LMWH. Performed By: #### 0 0071, 25410, 29326, 90290, 53893, 67516 #### [facility] [address] [place] [address], [facility] URINALYSIS REFLEXon 03-29-20 22 Appearance (U) CLEAR Normal CLEAR The [facility] Comment on above: Order Comment: No: D o not add to previous drawCriteria for reflexing a culture was not met. Please call the lab [phone] within 24 hours of collection time if culture is needed Performed By: #### 8 5499 #### [facility] [address] [place] [address], [facility] Bilirubin Ql (U) Negative Normal NEGATIVE The [facility] Comment on above: Order Comment: No: D o not add to previous drawCriteria for reflexing a culture was not met. Please call the lab [id number] within 24 hours of collection time if culture is needed Performed By: #### 8 5499 #### [facility] [address] [place] [address], [place] Color (U) YELLOW Normal YELLOW [facility] Comment on above: Order Comment: No: D o not add to previous drawCriteria for reflexing a culture was not met. Please call the lab [id number] within 24 hours of collection time if culture is needed Performed By: #### 8 [id number] #### [facility] [address] [place] [address], [facility] Glucose Ql (U) >=1000 Abnormal NEGATIVE The [facility] Comment on above: Order Comment: No: D o not add to previous drawCriteria for reflexing a culture was not met. Please call the lab [phone] within 24 hours of collection time if culture is needed Performed By: #### 8 [id number] #### [facility] [address] [place] [address], [facility] Hemoglobin Ql (U) Negative Normal NEGATIVE The [facility] Comment on above: Order Comment: No: D o not add to previous drawCriteria for reflexing a culture was not met. Please call the lab [id number] within 24 hours of collection time if culture is needed Performed By: #### 8 [id number] #### [facility] [address] [place] [address], [facility] KETONE Negative Normal NEGATIVE The [facility] Comment on above: Order Comment: No: D o not add to previous drawCriteria for reflexing a culture was not met. Please call the lab [id number] within 24 hours of collection time if culture is needed Performed By: #### 8 [id number] #### [facility] [address] [place] [address], [facility] LEUK ARPAN Negative Normal NEGATIVE The [facility] Comment on above: Order Comment: No: D o not add to previous drawCriteria for reflexing a culture was not met. Please call the lab [phone] within 24 hours of collection time if culture is needed Performed By: #### 8 [id number] #### [facility] [address] [place] [address], [facility] MICRO NOT DONE Normal The [facility] Comment on above: Order Comment: No: D o not add to previous drawCriteria for reflexing a culture was not met. Please call the lab [id number] within 24 hours of collection time if culture is needed Result Comment: Micr oscopics not performed on urines with negative chemical reactions unless requested in original order Performed By: #### 8 [id number] #### [facility] [address] [place] [address], [facility] Nitrite Ql (U) Negative Normal NEGATIVE The [facility] Comment on above: Order Comment: No: D o not add to previous drawCriteria for reflexing a culture was not met. Please call the lab [phone] within 24 hours of collection time if culture is needed Performed By: #### 8 [id number] #### [facility] [address] [place] [address], [facility] pH (U) 6.0 [pH] Normal 5.0-8.0 The [facility] Comment on above: Order Comment: No: D o not add to previous drawCriteria for reflexing a culture was not met. Please call the lab [id number] within 24 hours of collection time if culture is needed Performed By: #### 8 [id number] #### [facility] [address] [place] [address], [facility] Protein Ql (U) Negative Normal NEGATIVE The [facility] Comment on above: Order Comment: No: D o not add to previous drawCriteria for reflexing a culture was not met. Please call the lab [id number] within 24 hours of collection time if culture is needed Performed By: #### 8 [id number] #### [facility] [address] [place] [address], [facility] SPEC GRAV 1.031 High 1.015-1.020 [facility] Comment on above: Order Comment: No: D o not add to previous drawCriteria for reflexing a culture was not met. Please call the lab [id number] within 24 hours of collection time if culture is needed Performed By: #### 8 [id number] #### [facility] [address] [place] [address], [facility] BASIC METABOLIC PANELon 08 Calcium [Mass/Vol] 8.5 mg/dL Low 8.6-10.3 [facility] Comment on above: Order Comment: No: D o not add to previous draw Performed By: #### 0 0071, 42372, 19777, 85276, 92533, 27860 #### [facility] [address] [place] [address], [facility] Chloride [Moles/Vol] 103 mmol/L Normal 98-107 [facility] Comment on above: Order Comment: No: D o not add to previous draw Performed By: #### 0 0071, 84041, 16092, 90232, 75727, 38713 #### [facility] [address] [place] [address], [place] CO2 [Moles/Vol] 23 mmol/L Normal 21-31 The [facility] Comment on above: Order Comment: No: D o not add to previous draw Performed By: #### 0 0071, 64315, 76389, 10157, 91772, 80003 #### [facility] [address] [place] [address], [place] Creatinine [Mass/Vol] 0.80 mg/dL Normal 0.70-1.30 [facility] Comment on above: Order Comment: No: D o not add to previous draw Performed By: #### 0 0071, 31601, 67470, 90965, 47398, 51960 #### [facility] [address] [place] [address], [facility] GFR/1.73 sq M.predicted among non-blacks MDRD (S/P/Bld) [Vol rate/Area] mL/min/{1.73_m2} Normal >60 [facility] Comment on above: Order Comment: No: D o not add to previous draw Result Comment: The [facility]'s estimated glomerular filtration rate (eGFR) will no longer include consideration of race in its calculation. The National Kid[employer] Foundation's eGFR Task Force developed new recommendations for the estimation of the glomerular filtration rate in the [place] They recommend immediate implementation of the new equation refit without the race variable in all laboratories because the calculation does not include race. In addition to not including race in the calculation and reporting, it included diversity in its development, and has acceptable performance characteristics and potential consequences that do not disproportionately affect any one group of individuals. Performed By: #### 0 0071, 93005, 68423, 24573, 90852, 12148 #### [facility] [address] [place] [address], [facility] Glucose [Mass/Vol] 250 mg/dL High 70-100 The [facility] Comment on above: Order Comment: No: D o not add to previous draw Performed By: #### 0 0071, 39316, 51580, 15824, 54144, 99673 #### [facility] [address] [place] [address], [place] Potassium [Moles/Vol] 4.0 mmol/L Normal 3.5-5.1 [facility] Comment on above: Order Comment: No: D o not add to previous draw Performed By: #### 0 0071, 68269, 52102, 62719, 56713, 09040 #### [facility] [address] [place] [address], [place] Sodium [Moles/Vol] 133 mmol/L Low 136-145 [facility] Comment on above: Order Comment: No: D o not add to previous draw Performed By: #### 0 0071, 51105, 71199, 18646, 19404, 35911 #### [facility] [address] [place] [address], [facility] Urea nitrogen [Mass/Vol] 18 mg/dL Normal 7-25 [facility] Comment on above: Order Comment: No: D o not add to previous draw Performed By: #### 0 0071, 34269, 53258, 59508, 65424, 25778 #### [facility] [address] [place] [address], [facility] CARDIAC ROSETTA 3-6on 2 CK [Catalytic activity/Vol] 134 U/L Normal 39-308 [facility] Comment on above: Performed By: #### H STROPN, CMADM, LIPA, CMP #### [facility] [address] [address] [address] Amaya Schultz CK.MB [Mass/Vol] 2.05 ng/mL Normal <=3.60 The [facility] Comment on above: Performed By: #### H STROPN, CMADM, LIPA, CMP #### [facility] [address] [address] [address] Amaya Schultz HSTROP 187.0 pg/mL Critically high 4.0-76.1 [facility] Comment on above: Result Comment: CUT- OFF POINTS HAVE BEEN ESTABLISHED BASED ON THE FOURTH UNIVERSAL DEFINITIONS OF MYOCARDIAL INFARCTION. THE UPPER REFERENCE LIMIT (URL) OF TROPONIN, DEFINED THE 99TH PERCENTILE OF cTnI DISTRIBUTION IN A REFERENCE POPULATION, HAS BEEN CONFIRMED THE DECISION THRESHOLD FOR NE DIAGNOSIS. Performed By: #### H STROPN, CMADM, LIPA, CMP #### [facility] [address] [address] [address] Amaya Schultz CK [Catalytic activity/Vol] 156 U/L Normal 39-[address] [facility] Comment on above: Performed By: #### H STROPN, CMADM, LIPA, CMP #### [facility] [address] [address] [address] Amaya Schultz CK.MB [Mass/Vol] 2.63 ng/mL Normal <=3.60 [facility] Comment on above: Performed By: #### H STROPN, CMADM, LIPA, CMP #### [facility] [address] [address] [address] Amaya Schultz HSTROP 181.9 pg/mL Critically high 4.0-76.1 [facility] Comment on above: Result Comment: CUT- OFF POINTS HAVE BEEN ESTABLISHED BASED ON THE FOURTH UNIVERSAL DEFINITIONS OF MYOCARDIAL INFARCTION. THE UPPER REFERENCE LIMIT (URL) OF TROPONIN, DEFINED THE 99TH PERCENTILE OF cTnI DISTRIBUTION IN A REFERENCE POPULATION, HAS BEEN CONFIRMED THE DECISION THRESHOLD FOR NE DIAGNOSIS. Performed By: #### H STROPN, CMADM, LIPA, CMP #### [facility] [address] [place] [address] Dr. Amaya Schultz CARDIAC ROSETTA ADMITon 022 CK [Catalytic activity/Vol] 192 U/L Normal 39-308 [facility] Comment on above: Performed By: #### B MP, CMADM #### [facility] [address] [place] [address] Dr. Amaya Schultz CK.MB [Mass/Vol] 2.80 ng/mL Normal <=3.60 [facility] Comment on above: Performed By: #### B MP, CMADM #### [facility] [address] [place] [address] Dr. Aamya Schultz HSTROP 229.5 pg/mL Critically high 4.0-76.1 [facility] Comment on above: Result Comment: CUT- OFF POINTS HAVE BEEN ESTABLISHED BASED ON THE FOURTH UNIVERSAL DEFINITIONS OF MYOCARDIAL INFARCTION. THE UPPER REFERENCE LIMIT (URL) OF TROPONIN, DEFINED THE 99TH PERCENTILE OF cTnI DISTRIBUTION IN A REFERENCE POPULATION, HAS BEEN CONFIRMED THE DECISION THRESHOLD FOR NE DIAGNOSIS. Performed By: #### B MP, CMADM #### [facility] [address] [place] [address] Dr. Amaya Schultz SHALA 50 ng/mL Normal 16-[address] [facility] Comment on above: Performed By: #### B MP, CMADM #### [facility] [address] [address] [address] Amaya Schultz CBC AUTO DIFFon 03-28-2022 BASO # 0.1 103/ul Normal 0.0-0.1 [facility] Comment on above: Performed By: #### H STROPN, CMADM, LIPA, CMP #### [facility] [address] [place] [address] Dr. Amaya Schultz Basophils/100 WBC (Bld) 0.6 % Normal 0.2-2.[address] [facility] Comment on above: Performed By: #### H STROPN, CMADM, LIPA, CMP #### [facility] [address] [place] [address] Dr. Amaya Schultz EO # 0.4 103/ul Normal 0.0-0.[address] [facility] Comment on above: Performed By: #### H STROPN, CMADM, LIPA, CMP #### [facility] [address] [place] [address] Dr. Amaya Schultz Eosinophils/100 WBC (Bld) 3.2 % Normal 0.9-7.[address] [facility] Comment on above: Performed By: #### H STROPN, CMADM, LIPA, CMP #### [facility] [address] [place] [address] Dr. Amaya Schultz Erythrocyte distribution width (RBC) [Ratio] 12.4 % Normal 11.0-15.[address] [facility] Comment on above: Performed By: #### H STROPN, CMADM, LIPA, CMP #### [facility] [address] [place] [address] Dr. Amaya Schultz Hematocrit (Bld) [Volume fraction] 45.1 % Normal 42.0-54.0 [facility] Comment on above: Performed By: #### H STROPN, CMADM, LIPA, CMP #### [facility] [address] [place] [address] Dr. Amaya Schultz Hemoglobin (Bld) [Mass/Vol] 15.6 g/dL Normal 14.0-18.0 [facility] Comment on above: Performed By: #### H STROPN, CMADM, LIPA, CMP #### [facility] [address] [place] [address] Dr. Amaya Schultz IG # 0.10 10e3/ul Critically high 0.00-0.03 [facility] Comment on above: Performed By: #### H STROPN, CMADM, LIPA, CMP #### [facility] [address] [address] [address] Amaya Schultz IG % 0.8 % Critically high 0.0-0.5 [facility] Comment on above: Performed By: #### H STROPN, CMADM, LIPA, CMP #### [facility] [address] [place] [address] Dr. Amaya Schultz LYMPH # 3.2 103/ul Normal 1.2-3.[address] [facility] Comment on above: Performed By: #### H STROPN, CMADM, LIPA, CMP #### [facility] [address] [place] [address] Dr. Amaya Schultz Lymphocytes/100 WBC (Bld) 26.2 % Normal 20.5-60.0 [facility] Comment on above: Performed By: #### H STROPN, CMADM, LIPA, CMP #### [facility] [address] [place] [address] Dr. Amaya Schultz MANUAL DIFF REQ NO Normal [facility] Comment on above: Performed By: #### H STROPN, CMADM, LIPA, CMP #### [facility] [address] [place] [address] Dr. Amaya Schultz MCH (RBC) [Entitic mass] 29.5 pg Normal 25.9-34.[address] [facility] Comment on above: Performed By: #### H STROPN, CMADM, LIPA, CMP #### [facility] [address] [place] [address] Dr. Amaya Schultz MCHC (RBC) [Mass/Vol] 34.6 g/dL Normal 29.9-35.2 [facility] Comment on above: Performed By: #### H STROPN, CMADM, LIPA, CMP #### [facility] [address] [address] [address] Amaya Schultz MCV (RBC) [Entitic vol] 85.3 fL Normal 80.0-94.0 [facility] Comment on above: Performed By: #### H STROPN, CMADM, LIPA, CMP #### [facility] [address] [address] [address] Amaya Schultz MONO # 0.8 103/ul Normal 0.3-0.8 [facility] Comment on above: Performed By: #### H STROPN, CMADM, LIPA, CMP #### [facility] [address] [place] [address] Dr. Amaya Schultz Monocytes/100 WBC (Bld) 6.1 % Normal 1.7-12.0 [facility] Comment on above: Performed By: #### H STROPN, CMADM, LIPA, CMP #### [facility] [address] [place] [address] Dr. Amaya Schultz NEUT # 7.8 103/ul Critically high 1.4-6.5 [facility] Comment on above: Performed By: #### H STROPN, CMADM, LIPA, CMP #### [facility] [address] [place] [address] Dr. Amaya Schultz Neutrophils/100 WBC (Bld) 63.1 % Normal 43.0-75.[address] [facility] Comment on above: Performed By: #### H STROPN, CMADM, LIPA, CMP #### [facility] [address] [address] [address] Amaya Schultz Platelet mean volume (Bld) [Entitic vol] 9.4 fL Critically low 9.5-13.[address] [facility] Comment on above: Performed By: #### H STROPN, CMADM, LIPA, CMP #### [facility] [address] [place] [address] Dr. Amaya Schultz PLT 264 103/ul Normal 150-[address] [facility] Comment on above: Performed By: #### H STROPN, CMADM, LIPA, CMP #### [facility] [address] [place], [place] [address] Dr. Amaya Schultz RBC 5.29 106/ul Normal 4.70-6.[address] [facility] Comment on above: Performed By: #### H STROPN, CMADM, LIPA, CMP #### [facility] [address] [place], [place] [address] Dr. Amaya Schultz WBC 12.4 103/ul Critically high 4.0-11.0 [facility] Comment on above: Performed By: #### H STROPN, CMADM, LIPA, CMP #### [facility] [address] [place], [place] [address] Dr. Amaya Schultz CBC W/DIFFon 03-28-2022 ABS IMM GRANS 0.1 10*3/uL Normal 0.0-0.2 [facility] Comment on above: Performed By: #### 0 0071, 00807, 68012, 12636, 39079, 10689 #### [facility] [address] ABS NEUTROPHILS 8.1 10*3/uL High 1.6-7.6 The [facility] Comment on above: Performed By: #### 0 0071, 78589, 46512, 37665, 24170, 98050 #### [facility] [address] [place] [address], [facility] Basophils (Bld) [#/Vol] 0.1 10*3/uL Normal 0.0-0.2 [facility] Comment on above: Performed By: #### 0 0071, 09911, 36129, 18790, 79434, 05799 #### [facility] [address] [place] [address], [facility] Basophils/100 WBC (Bld) 0.5 % Normal 0.0-1.0 [facility] Comment on above: Performed By: #### 0 0071, 42786, 09740, 54510, 72594, 92731 #### [facility] [address] [place] [address], [facility] Eosinophils (Bld) [#/Vol] 0.2 10*3/uL Normal 0.0-0.5 [facility] Comment on above: Performed By: #### 0 0071, 67256, 50574, 25019, 59531, 41123 #### [facility] [address] [place] [address], [facility] Eosinophils/100 WBC (Bld) 1.8 % Normal 0.0-6.0 [facility] Comment on above: Performed By: #### 0 0071, 29811, 61309, 33050, 67168, 63161 #### [facility] [address] Erythrocyte distribution width (RBC) [Ratio] 12.5 % Normal 11.5-15.0 [facility] Comment on above: Performed By: #### 0 0071, 69896, 37646, 06630, 37514, 80677 #### [facility] [address] [place] [address], [facility] Hematocrit (Bld) [Volume fraction] 44.2 % Normal 39.0-50.0 [facility] Comment on above: Performed By: #### 0 0071, 12425, 69367, 60434, 59913, 36227 #### [facility] [address] [place] [address], [facility] Hemoglobin (Bld) [Mass/Vol] 15.5 g/dL Normal 13.0-17.0 [facility] Comment on above: Performed By: #### 0 0071, 37501, 89933, 40455, 91903, 64033 #### [facility] [address] [place] [address], [facility] IMMATURE GRANS 1.0 % Normal 0.0-1.0 Arnaldo a[facility] Comment on above: Performed By: #### 0 0071, 81632, 13399, 52750, 14038, 29887 #### [facility] [address] [place] [address], [facility] Lymphocytes (Bld) [#/Vol] 2.5 10*3/uL Normal 1.2-4.0 [facility] Comment on above: Performed By: #### 0 0071, 46293, 23589, 15380, 87802, 20087 #### [facility] [address] [facility] [address], [facility] Lymphocytes/100 WBC (Bld) 21.5 % Normal 20.0-45.0 [facility] Comment on above: Performed By: #### 0 0071, 31206, 33219, 03459, 19379, 16683 #### [facility] [address] MCH (RBC) [Entitic mass] 29.4 pg Normal 27.0-33.0 [facility] Comment on above: Performed By: #### 0 0071, 37744, 07853, 28087, 04018, 59836 #### [facility] [address] [facility] [place] [address], [facility] MCHC (RBC) [Mass/Vol] 35.1 g/dL High 32.0-35.0 [facility] Comment on above: Performed By: #### 0 0071, 50373, 57594, 98638, 36485, 19001 #### [facility] [address] [place] [address], [facility] MCV (RBC) [Entitic vol] 83.9 fL Normal 82.0-98.0 [facility] Comment on above: Performed By: #### 0 0071, 23001, 53708, 58861, 96155, 13012 #### [facility] [address] [place] [address], [facility] Monocytes (Bld) [#/Vol] 0.7 10*3/uL Normal 0.1-1.0 [facility] Comment on above: Performed By: #### 0 0071, 80296, 72499, 56755, 01842, 79343 #### [facility] [address] [place] [address], [place] MONOS 5.7 % Normal 5.0-12.0 [facility] Comment on above: Performed By: #### 0 0071, 04029, 86256, 78468, 00627, 82086 #### [facility] [address] [place] [address], [place] Neutrophils/100 WBC (Bld) 69.5 % Normal 40.0-72.0 [facility] Comment on above: Performed By: #### 0 0071, 56355, 84489, 55027, 24995, 01051 #### [facility] [address] [place] [address], [place] Nucleated RBC/100 WBC (Bld) [Ratio] 0 % Normal 0-0 [facility] Comment on above: Performed By: #### 0 0071, 53773, 25591, 87134, 87754, 31394 #### [facility] [address] [place] [address], [place] PLAT CNT 263 10*3/uL Normal 150-[address] [facility] Comment on above: Performed By: #### 0 0071, 65044, 94133, 56932, 64678, 87058 #### [facility] [address] [place] [address], [place] RBC (Bld) [#/Vol] 5.27 10*6/uL Normal 4.20-5.70 The [facility] Comment on above: Performed By: #### 0 0071, 64950, 61126, 43503, 62750, 18416 #### [facility] [address] [place] [address], [place] WBC (Bld) [#/Vol] 11.67 10*3/uL High 4.00-10.60 [facility] Comment on above: Performed By: #### 0 0071, 20084, 60827, 76822, 98449, 99503 #### [facility] [address] [place] [address], [facility] Covid-19 PCR (CVDTB)on 03-14 SARS-CoV-2 (COVID-19) RNA BLANCA+probe Ql (Unsp spec) Not detected Normal NOT DETECTED The [facility] Comment on above: Result Comment: When diagnostic testing is negative, the possibility of a false negative should be considered in the context of a patient's recent exposures and the presence of clinical signs and symptoms consistent with SARS-CoV-2. This test is not yet approved or cleared by the [place] FDA. When there are no FDA-approved or cleared tests available, and other criteria are met, FDA can make tests available under an emergency access mechanism called an Emergency Use Authorization (EUA). The EUA for this test is supported by the Industrial Custodian of Health and Human Service's declaration that circumstances exist to justify the emergency use of in vitro diagnostics for the detection and/or diagnosis of the virus that causes COVID-19. This EUA will remain in effect for the duration of the COVID-19 declaration justifying emergency of IVDs, unless it is terminated or revoked by the FDA (after which the test may no longer be used). Performed By: #### H STROPN, CMADM, LIPA, CMP #### [facility] [address] [place] [address] Dr. Amaya Schultz MAGNESIUM BLOODon 03-28-2022 Magnesium [Mass/Vol] 1.9 mg/dL Normal 1.9-2.7 [facility] Comment on above: Order Comment: No: D o not add to previous draw Performed By: #### 0 0071, 13656, 13261, 58373, 90016, 41854 #### [facility] [address] [place] [address], [facility] POC GLUCOSE LABon 03-28-2022 Glucose [Mass/Vol] 302 mg/dL High 70-100 [facility] Comment on above: Performed By: #### [id number] #### [facility] [address] POC SARS COV2 ANTIGEN NEGATI VEon 03-28-2022 POC SARS COV2 ANTIGEN NEG Negative Normal NEGATIVE [facility] Comment on above: Result Comment: Nega tive results should be treated as presumptive and confirmation with a molecular assay, if necessary, for patient management, may be performed. Negative results do not rule out SARS-CoV-2 infection and not should be used as the sole basis for treatment or patient management decisions, including infection control decisions. Negative results should be considered in the context of a patient's recent exposures, history, and the presence of clinical signs and symptoms consistent with COVID-19. The Clarity COVID-19 Antigen Rapid Test Cassette is a rapid chromatographic immunoassay intended for the qualitative detection of the nucleocapsid protein antigen from SARS-CoV-2 in direct nasopharyngeal swab (AIR POLLUTION SPECIALIST) specimens from individuals who are suspected of COVID-19 by their healthcare provider within the first six days of symptom onset. Testing is limited to laboratories certified under the Clinical Laboratory Improvement Amendments of 1988 (CLIA), 42 U.S.C. ???263a, that meet the requirements to perform moderate complexity, high complexity, or waived tests. This test is authorized for use at the Point of Care (POC), i.e., in patient care settings operating under a CLIA Certificate of Waiver, Certificate of Compliance, or Certificate of Accreditation. Performed By: #### 0 [id number], [id number], [id number], [id number], [id number], [id number] #### [facility] [address] [facility] [place] [address], [facility] PROF CHEM 8 (BAS METB)on Anion gap [Moles/Vol] 11.8 mmol/L Normal [facility] Comment on above: Performed By: #### B MP, CMADM #### [facility] Laboratory [address] [address] [address] Amaya Schultz Calcium [Mass/Vol] 8.5 mg/dL Normal 8.5-10.1 [facility] Comment on above: Performed By: #### B ANTHONY, CMADM #### [facility] Laboratory [address] [address] [address] Amaya Schultz Chloride [Moles/Vol] 101 mmol/L Normal 98-107 [facility] Comment on above: Performed By: #### B ANTHONY, CMADM #### [facility] Laboratory [address] [address] [address] Amaya Schultz CO2 [Moles/Vol] 25.9 mmol/L Normal 21.0-32.0 [facility] Comment on above: Performed By: #### B ANTHONY, CMADM #### [facility] [address] [address] [address] Amaya Schultz Creatinine [Mass/Vol] 1.40 mg/dL Critically high 0.70-1.30 [facility] Comment on above: Performed By: #### B ANTHONY, CMADM #### [facility] [address] [address] [address] Amaya Schultz EGFR-AF TONGAN >60 Normal >=60 [facility] Comment on above: Performed By: #### B ANTHONY, CMADM #### [facility] [address] [address] [address] Amaya Schultz EGFR-NON AF TONGAN 55 mL/min/1.73m2 Critically low >=60 [facility] Comment on above: Performed By: #### B ANTHONY, CMADM #### [facility] [address] [address] [address] Amaya Schultz Glucose [Mass/Vol] 291 mg/dL Critically high 74-106 [facility] Comment on above: Performed By: #### B ANTHONY, CMADM #### [facility] [address] [address] [address] Amaya Schultz Potassium [Moles/Vol] 3.7 mmol/L Normal 3.5-5.1 [facility] Comment on above: Performed By: #### B ANTHONY, CMADM #### [facility] [address] [address] [address] Amaya Schultz Sodium [Moles/Vol] 135 mmol/L Critically low 136-[address] [facility] Comment on above: Performed By: #### B MP, CMADM #### [facility] [address] [place] [address] Dr. Amaya Schultz Urea nitrogen [Mass/Vol] 23.0 mg/dL Critically high 7.0-18.0 [facility] Comment on above: Performed By: #### B MP, CMADM #### [facility] [address] [place] [address] Dr. Amaya Schultz Urea nitrogen/Creatinine [Mass ratio] 16.4 mg/mg Normal [facility] Comment on above: Performed By: #### B MP, CMADM #### [facility] [address] [place] [address] Dr. Amaya Schultz PROTIMEon 03-28-2022 INR Coag (PPP) [Relative time] 1.05 {INR} Normal [facility] Comment on above: Performed By: #### H STROPN, CMADM, LIPA, CMP #### [facility] [address] [place] [address] Dr. Amaya Schultz INR GUIDELINES SEE BELOW Normal [facility] Comment on above: Result Comment: MADHU RED INR: 2.0 - 3.0 CONDITIONS NOT LISTED BELOW 2.5 - 3.5 FOR PROSTHETIC HEART VALVE REPLACEMENT 2.5 - 3.5 RECURRENT THROMBOSIS Performed By: #### H STROPN, CMADM, LIPA, CMP #### [facility] [address] [place] [address] Dr. Amaya Schultz PT Coag (PPP) [Time] 11.3 s Normal 9.0-11.6 [facility] Comment on above: Performed By: #### H STROPN, CMADM, LIPA, CMP #### [facility] [address] [place] [address] Dr. Amaya Schultz PTTon 03-28-2022 aPTT Coag (Bld) [Time] 29.7 s Normal 22.3-36.2 [facility] Comment on above: Performed By: #### H STROPN, CMADM, LIPA, CMP #### [facility] [address] [address] [address] Amaya Schultz TROPONIN-Ion 03-28-2022 Troponin I.cardiac [Mass/Vol] 0.19 ng/mL Critically high 0.00-0.04 [facility] Comment on above: Result Comment: M-TR OPONIN INITIAL CRITICAL HIGH; RESPUN AND RETESTED M-CRITICAL RESULT(S) REVIEWED, CALLED TO AND READ BACK BY [place] RN AT 1414 REFERENCE RANGES: 0.00 - 0.04 ng/ml NORMAL 0.05 - 0.50 ng/ml INDETERMINATE > 0.50 ng/ml CONSISTENT WITH AN M.I. Performed By: #### 0 [id number], [id number], [id number], 84103, 28542, 16385 #### [facility] [address] UFH HEPARIN ASSAYon 03-28-20 22 UNFRACTIONATED HEPARIN 0.37 IU/mL Normal 0.30-0.70 [facility] Comment on above: Result Comment: [place] roxaban and Apixaban will interfere with the anti Xa assay used to monitor UFH and LMWH. Performed By: #### 0 [id number], [id number], [id number], 03286, [id number], [id number] #### [facility] [address] XR CHEST 1 Von 03-28-2022 XR CHEST 1 V EXAM: XR CHEST 1 V HISTORY: CHEST PAIN, UNSPECIFIED COMPARISON: None. TECHNIQUE: AP FINDINGS: Patient is rotated slightly limiting evaluation. The cardiac mediastinal silhouette is stable in size. Bilateral lung colon show no evidence for acute consolidation, infiltrate, pneumothorax or pleural effusions. The diaphragmatic and osseous structures are intact with no evidence for an acute osseous abnormality. IMPRESSION: No acute cardiopulmonary disease. Electronically authenticated by: LORI APONTE Date: 2022-03-28 01:16 Normal [address] [facility] CARDIAC ROSETTA ADMITon 022 CK [Catalytic activity/Vol] 145 U/L Normal 39-[address] [facility] Comment on above: Performed By: #### H STROPN, CMADM, LIPA, CMP #### [facility] [address] [address] [address] Amaya Schultz CK.MB [Mass/Vol] 2.00 ng/mL Normal <=3.60 [facility] Comment on above: Performed By: #### H STROPN, CMADM, LIPA, CMP #### [facility] [address] [place] [address] Dr. Amaya Schultz HSTROP 27.1 pg/mL Normal 4.0-76.[address] [facility] Comment on above: Result Comment: CUT- OFF POINTS HAVE BEEN ESTABLISHED BASED ON THE FOURTH UNIVERSAL DEFINITIONS OF MYOCARDIAL INFARCTION. THE UPPER REFERENCE LIMIT (URL) OF TROPONIN, DEFINED THE 99TH PERCENTILE OF cTnI DISTRIBUTION IN A REFERENCE POPULATION, HAS BEEN CONFIRMED THE DECISION THRESHOLD FOR NE DIAGNOSIS. Performed By: #### H STROPN, CMADM, LIPA, CMP #### [facility] [address] [place] [address] Dr. Amaya Schultz SHALA 66 ng/mL Normal 16-[address] [facility] Comment on above: Performed By: #### H STROPN, CMADM, LIPA, CMP #### [facility] [address] [place] [address] Dr. Amaya Schultz CBC AUTO DIFFon 02-11-2022 BASO # 0.1 103/ul Normal 0.0-0.1 [facility] Comment on above: Performed By: #### C BC #### [facility] [address] [place] [address] Dr. Amaya Schultz Basophils/100 WBC (Bld) 0.4 % Normal 0.2-2.[address] [facility] Comment on above: Performed By: #### C BC #### [facility] [address] [place] [address] Dr. Amaya Schultz EO # 0.1 103/ul Normal 0.0-0.[address] [facility] Comment on above: Performed By: #### C BC #### [facility] [address] [place] [address] Dr. Amaya Schultz Eosinophils/100 WBC (Bld) 0.6 % Critically low 0.9-7.[address] [facility] Comment on above: Performed By: #### C BC #### [facility] [address] [place] [address] Dr. Amaya Schultz Erythrocyte distribution width (RBC) [Ratio] 11.9 % Normal 11.0-15.0 [facility] Comment on above: Performed By: #### C BC #### [facility] [address] [place] [address] Dr. Amaya Schultz Hematocrit (Bld) [Volume fraction] 50.1 % Normal 42.0-54.0 [facility] Comment on above: Performed By: #### C BC #### [facility] [address] [place] [address] Dr. Amaya Schultz Hemoglobin (Bld) [Mass/Vol] 18.0 g/dL Normal 14.0-18.0 [facility] Comment on above: Performed By: #### C BC #### [facility] [address] [place] [address] Dr. Amaya Schultz IG # 0.15 10e3/ul Critically high 0.00-0.03 [facility] Comment on above: Performed By: #### C BC #### [facility] [address] [place] [address] Dr. Amaya Schultz IG % 0.8 % Critically high 0.0-0.5 [facility] Comment on above: Performed By: #### C BC #### [facility] [address] [place] [address] Dr. Amaya Schultz LYMPH # 2.0 103/ul Normal 1.2-3.8 [facility] Comment on above: Performed By: #### C BC #### [facility] [address] [place] [address] Dr. Amaya Schultz Lymphocytes/100 WBC (Bld) 10.1 % Critically low 20.5-60.0 [facility] Comment on above: Performed By: #### C BC #### [facility] [address] [place] [address] Dr. Amaya Schultz MANUAL DIFF REQ NO Normal [facility] Comment on above: Performed By: #### C BC #### [facility] [address] [place], [place] [id number] Dr. Amaya Schultz MCH (RBC) [Entitic mass] 29.6 pg Normal 25.9-34.[address] [facility] Comment on above: Performed By: #### C BC #### [facility] [address] [place] [address] Dr. Amaya Schultz MCHC (RBC) [Mass/Vol] 35.9 g/dL Critically high 29.9-35.[address] [facility] Comment on above: Performed By: #### C BC #### [facility] [address] [place] [address] Dr. Amaya Schultz MCV (RBC) [Entitic vol] 82.4 fL Normal 80.0-94.[address] [facility] Comment on above: Performed By: #### C BC #### [facility] [address] [place] [address] Dr. Amaya Schultz MONO # 0.6 103/ul Normal 0.3-0.[address] [facility] Comment on above: Performed By: #### C BC #### [facility] [address] [place] [address] Dr. Amaya Schultz Monocytes/100 WBC (Bld) 3.2 % Normal 1.7-12.[address] [facility] Comment on above: Performed By: #### C BC #### [facility] [address] [place] [address] Dr. Amaya Schultz NEUT # 16.8 103/ul Critically high 1.4-6.5 [facility] Comment on above: Performed By: #### C BC #### [facility] [address] [place] [address] Dr. Amaya Schultz Neutrophils/100 WBC (Bld) 84.9 % Critically high 43.0-75.[address] [facility] Comment on above: Performed By: #### C BC #### [facility] [address] [place] [address] Dr. Amaya Schultz Platelet mean volume (Bld) [Entitic vol] 9.5 fL Normal 9.5-13.[address] [facility] Comment on above: Performed By: #### C BC #### [facility] [id number] Amaya Schultz PLT 304 103/ul Normal 150-[address] [facility] Comment on above: Performed By: #### C BC #### [facility] [address] [address] [address] Amaya Schultz RBC 6.08 106/ul Normal 4.70-6.10 [facility] Comment on above: Performed By: #### C BC #### [facility] [id number] Amaya Schultz WBC 19.8 103/ul Critically high 4.0-11.0 [facility] Comment on above: Performed By: #### C BC #### [facility] [id number] Amaya Schultz [address] ABD/PELVIS WO CONon 02-11 CT ABD/PELVIS WO CON EXAMINATION: CT ABD/PELVIS WO CON, 02/11/2022 10:05 AM EDT HISTORY: NAUSEA WITH VOMITING, UNSPECIFIED , abdominal pain COMPARISON: None. TECHNIQUE: CT scan of the abdomen and pelvis was performed without IV contrast. CT dose reduction technique was used, including Automated Exposure Control. FINDINGS: LUNG BASES: No visible pulmonary or pleural disease. LIVER: No enlargement, atrophy, abnormal density, or significant focal lesion. BILIARY: No dilatation or calcification. PANCREAS: No lesion, fluid collection, ductal dilatation, or atrophy. SPLEEN: No enlargement or focal lesion. ADRENALS: No mass or enlargement. KIDNEYS: 5 mm nonobstructing nephrolith. No hydronephrosis or obstructing nephrolithiasis BOWEL/MESENTERY: Moderate wall thickening involving the ascending transverse, proximal descending colon with moderate mesenteric stranding and a small amount of free pelvic fluid in the pelvis and right paracolic gutter. Overall nonobstructive bowel gas pattern. Normal appendix. AORTA/VASCULAR: No aortic aneurysm. Moderate atherosclerosis. RETROPERITONEUM: No mass or adenopathy. LYMPH NODES: No adenopathy. URINARY BLADDER: No visible focal wall thickening, lesion, or calculus. PELVIC ORGANS: No visible mass. Pelvic organs appropriate for patient age. ABDOMINAL WALL: No mass or hernia. BONES: No bony lesion or fracture. OTHER: Negative. IMPRESSION: Moderate colitis. In light of the distribution, consider inflammatory or infectious etiology Electronically authenticated by: BLAYNE MORGAN Date: 2022-02-11 10:57 Normal [address] [facility] ER URINE PROFILEon 2 Bilirubin Ql (U) Negative Normal NEGATIVE [facility] Comment on above: Performed By: #### H STROPN, CMADM, LIPA, CMP #### [facility] [address] [address] [address] Amaya Schultz Clarity (U) CLEAR Normal CLEAR [facility] Comment on above: Performed By: #### H STROPN, CMADM, LIPA, CMP #### [facility] [address] [address] [address] Amaya Schultz Color (U) LT. YELLOW Normal YELLOW [facility] Comment on above: Performed By: #### H STROPN, CMADM, LIPA, CMP #### [facility] [address] [address] [address] Amaya ORTIZ A micrscopic examination will be performed if indicated. Normal [facility] Comment on above: Performed By: #### H STROPN, CMADM, LIPA, CMP #### [facility] [address] [address] [address] Amaya Schultz Glucose Ql (U) 1000 mg/dl Abnormal NEGATIVE [facility] Comment on above: Performed By: #### H STROPN, CMADM, LIPA, CMP #### [facility] [address] [address] [address] Amaya Schultz Hemoglobin Ql (U) Negative Normal NEGATIVE [facility] Comment on above: Performed By: #### H STROPN, CMADM, LIPA, CMP #### [facility] [address] [address] [address] Amaya Schultz Ketones Ql (U) 15 mg/dl Abnormal NEGATIVE [facility] Comment on above: Performed By: #### H STROPN, CMADM, LIPA, CMP #### [facility] [address] [address] [address] Amaya Schlutz LEUKOCYTES Negative Normal NEGATIVE [facility] Comment on above: Performed By: #### H STROPN, CMADM, LIPA, CMP #### [facility] [address] [address] [address] Amaya Schultz Nitrite Ql (U) Negative Normal NEGATIVE [facility] Comment on above: Performed By: #### H STROPN, CMADM, LIPA, CMP #### [facility] [address] [address] [address] Amaya Schultz pH (U) 6.0 [pH] Normal 5-9 [facility] Comment on above: Performed By: #### H STROPN, CMADM, LIPA, CMP #### [facility] [address] [place] [address] Dr. Amaya Schultz SPEC GRAVITY 1.010 Normal 1.005-<=1.025 [facility] Comment on above: Performed By: #### H STROPN, CMADM, LIPA, CMP #### [facility] [address] [place] [address] Dr. Amaya Schultz UA PROTEIN Negative Normal NEGATIVE/ TRACE [facility] Comment on above: Performed By: #### H STROPN, CMADM, LIPA, CMP #### [facility] [address] [place] [address] Dr. Amaya Schultz UR MICRO IND NOT INDICATED Normal [facility] Comment on above: Performed By: #### H STROPN, CMADM, LIPA, CMP #### [facility] [address] [place] [address] Dr. Amaya Schultz Urobilinogen Qn (U) 0.2 {Casey'U}/dL Normal 0.2 - 1. 0 [facility] Comment on above: Performed By: #### H STROPN, CMADM, LIPA, CMP #### [facility] [address] [address] [address] Amaya Schultz LIPASEon 02-11-2022 Lipase [Catalytic activity/Vol] 73.0 U/L Normal 73.0-393.0 [facility] Comment on above: Performed By: #### H STROPN, CMADM, LIPA, CMP #### [facility] [address] [place] [address] Dr. Amaya Schultz PROF 14(COMP METB)on 022 Albumin [Mass/Vol] 3.9 g/dL Normal 3.4-5.0 [facility] Comment on above: Performed By: #### H STROPN, CMADM, LIPA, CMP #### [facility] [address] [address] [address] Amaya Schultz Albumin/Globulin [Mass ratio] 1.0 {ratio} Normal [facility] Comment on above: Performed By: #### H STROPN, CMADM, LIPA, CMP #### [facility] [address] [address] [address] Amaya Schultz ALP [Catalytic activity/Vol] 120 U/L Critically high 46-116 [facility] Comment on above: Performed By: #### H STROPN, CMADM, LIPA, CMP #### [facility] [address] [place] [address] Dr. Amaya Schultz ALT [Catalytic activity/Vol] 26 U/L Normal 16-63 [facility] Comment on above: Performed By: #### H STROPN, CMADM, LIPA, CMP #### [facility] [address] [address] [address] Amaya Schultz Anion gap [Moles/Vol] 15.4 mmol/L Normal [facility] Comment on above: Performed By: #### H STROPN, CMADM, LIPA, CMP #### [facility] [address] [address] [address] Amaya Schultz AST [Catalytic activity/Vol] 11 U/L Critically low 15-37 [facility] Comment on above: Performed By: #### H STROPN, CMADM, LIPA, CMP #### [facility] [address] [address] [address] Amaya Schultz Bilirubin [Mass/Vol] 1.0 mg/dL Normal 0.2-1.0 [facility] Comment on above: Performed By: #### H STROPN, CMADM, LIPA, CMP #### [facility] [address] [place] [address] Dr. Amaya Schultz Calcium [Mass/Vol] 9.1 mg/dL Normal 8.5-10.1 [facility] Comment on above: Performed By: #### H STROPN, CMADM, LIPA, CMP #### [facility] [address] [address] [address] Amaya Schultz Chloride [Moles/Vol] 97 mmol/L Critically low 98-107 [facility] Comment on above: Performed By: #### H STROPN, CMADM, LIPA, CMP #### [facility] [address] [address] [address] Amaya Schultz CO2 [Moles/Vol] 26.6 mmol/L Normal 21.0-32.0 [facility] Comment on above: Performed By: #### H STROPN, CMADM, LIPA, CMP #### [facility] [address] [address] [address] Amaya Schultz Creatinine [Mass/Vol] 1.10 mg/dL Normal 0.70-1.30 [facility] Comment on above: Performed By: #### H STROPN, CMADM, LIPA, CMP #### [facility] [address] [address] [address] Amaya Schultz EGFR-AF TONGAN >60 Normal >=60 [facility] Comment on above: Performed By: #### H STROPN, CMADM, LIPA, CMP #### [facility] [address] [address] [address] Amaya Schultz EGFR-NON AF TONGAN >60 Normal >=60 [facility] Comment on above: Performed By: #### H STROPN, CMADM, LIPA, CMP #### [facility] [address] [address] [address] Amaya Schultz Globulin (S) [Mass/Vol] 4.0 g/dL Normal [facility] Comment on above: Performed By: #### H STROPN, CMADM, LIPA, CMP #### [facility] [address] [address] [address] Amaya Schultz Glucose [Mass/Vol] 383 mg/dL Critically high 74-106 [facility] Comment on above: Performed By: #### H STROPN, CMADM, LIPA, CMP #### [facility] [address] [address] [address] Amaya Schultz Potassium [Moles/Vol] 4.0 mmol/L Normal 3.5-5.1 [facility] Comment on above: Performed By: #### H STROPN, CMADM, LIPA, CMP #### [facility] [address] [address] [address] Amaya Schultz Protein [Mass/Vol] 7.9 g/dL Normal 6.4-8.2 [facility] Comment on above: Performed By: #### H STROPN, CMADM, LIPA, CMP #### [facility] [facility] [address] [address] [address] Amaya Schultz Sodium [Moles/Vol] 135 mmol/L Critically low 136-145 [facility] Comment on above: Performed By: #### H STROPN, CMADM, LIPA, CMP #### [facility] [address] [address] [address] Amaya Schultz Urea nitrogen [Mass/Vol] 15.0 mg/dL Normal 7.0-18.0 [facility] Comment on above: Performed By: #### H STROPN, CMADM, LIPA, CMP #### [facility] [address] [address] [address] Amaya Schultz Urea nitrogen/Creatinine [Mass ratio] 13.6 mg/mg Normal [facility] Comment on above: Performed By: #### H STROPN, CMADM, LIPA, CMP #### [facility] [address] [address] [address] Amaya Schultz XR CHEST 1 Von 02-11-2022 XR CHEST 1 V EXAMINATION: XR CHES T 1 V HISTORY: SHORTNESS OF BREATH COMPARISON: No relevant comparison available. TECHNIQUE: AP portable erect FINDINGS: LUNGS: No significant pulmonary parenchymal abnormalities. VASCULATURE: No increased pulmonary vasculature. PLEURA: No pneumothorax, effusion, or pleural thickening. CARDIAC: No cardiomegaly or cardiac silhouette abnormality. MEDIASTINUM: No visible mass or adenopathy. BONES: No fracture or visible bone lesion. OTHER: Negative. IMPRESSION: No acute disease. Electronically authenticated by: BLAYNE MORGAN Date: 2022-02-11 08:36 Normal [facility] Vital Signs Date Time Vital Sign Value Performing Clinician Marti vega 11-06-2024 14:43-0400 Body mass index (BMI) [Ratio] 30.35 kg/m2 Brinda Howell [employer] Work Phone: [facility] 11-06-2024 14:43-0400 Body temperature 98.2 [degF] Brinda Howell [employer]IST Work Phone: [facility] 11-06-2024 14:43-0400 Body weight 90.54 kg Brinda Howell [employer]IST Work Phone: [facility] 11-06-2024 14:43-0400 Diastolic blood pressure 100 mm[Hg] Brinda Howell [employer]IST Work Phone: [facility] 11-06-2024 14:43-0400 Heart rate 73 /min Brinda Howell [employer]IST Work Phone: [facility] 11-06-2024 14:43-0400 Respiratory rate 18 /min Brinda Howell [employer] SPECIALIST Work Phone: [facility] 11-06-2024 14:43-0400 SaO2% (BldA) [Mass fraction] 97 % Brinda Howell [employer]IST Work Phone: [facility] 11-06-2024 14:43-0400 Systolic blood pressure 160 mm[Hg] Brinda Howell [employer]IST Work Phone: [facility] 07-24-2024 13:50-0500 Body height 172.7 cm Arcelia Pope [employer] SPECIALIST Work Phone: [facility] 07-24-2024 13:50-0500 Body mass index (BMI) [Ratio] 30.26 kg/m2 Arcelia Rothmank [employer]IST Work Phone: [facility] 07-24-2024 13:50-0500 Body temperature 98.1 [degF] Arcelia Pope [employer]IST Work Phone: [facility] 07-24-2024 13:50-0500 Body weight 90.27 kg Arcelia Pope [employer]IST Work Phone: [facility] 07-24-2024 13:50-0500 Diastolic blood pressure 88 mm[Hg] Arcelia Pope [employer]IST Work Phone: [facility] 07-24-2024 13:50-0500 Heart rate 66 /min Arcelia Pope [employer]IST Work Phone: [facility] 07-24-2024 13:50-0500 Respiratory rate 16 /min Arcelia Pope [employer]IST Work Phone: [facility] 07-24-2024 13:50-0500 SaO2% (BldA) [Mass fraction] 99 % Arcelia Pope [employer]IST Work Phone: [facility] 07-24-2024 13:50-0500 Systolic blood pressure 133 mm[Hg] Arcelia Pope [employer]IST Work Phone: [facility] 04-24-2024 09:50-0400 Body height 172.7 cm Arcelia Pope [employer]IST Work Phone: [facility] 04-24-2024 09:50-0400 Body mass index (BMI) [Ratio] 30.11 kg/m2 Arcelia Pope [employer]IST Work Phone: [facility] 04-24-2024 09:50-0400 Body temperature 97.9 [degF] Arcelia Pope [employer]IST Work Phone: [facility] 04-24-2024 09:50-0400 Body weight 89.81 kg Arcelia Pope [employer]IST Work Phone: [facility] 04-24-2024 09:50-0400 Diastolic blood pressure 100 mm[Hg] Arcelia Pope [employer]IST Work Phone: [facility] Comment on above: RT ARM 134/100 LG CU FF 04-24-2024 09:50-0400 Heart rate 77 /min Arcelia Pope [employer]IST Work Phone: [facility] Comment on above: 97% O2 04-24-2024 09:50-0400 Systolic blood pressure 130 mm[Hg] Arcelia Pope [employer]IST Work Phone: [facility] Comment on above: RT ARM 134/100 LG CU FF Encounters Encounter Date Encounter Type Care Provider Facility Start: 11-06-2024 End: 11-06-2024 Office outpatient visit 25 minutes Brinda Howell [employer]IST Work Phone: [facility] Comment on above: Type 2 diabetes harley itus with other specified complication (CMS/HCC) (Primary Dx); Pure hyperglyceridemia (CMS/HCC); Coronary artery disease involving [place] coronary artery of [place] heart without angina pectoris (CMS/HCC); Primary hypertension (CMS/HCC); Mixed hyperlipidemia (CMS/HCC); Cigarette nicotine dependence without complication; Essential (primary) hypertension (CMS/HCC); Essential hypertension (CMS/HCC); Tobacco dependency Start: 11-06-2024 End: 11-06-2024 ambulatory BRINDA HOWELL Not Available Start: 11-06-2024 End: 11-06-2024 Bamboo flowsheet Brinda Howell [employer]IST Work Phone: [facility] Start: 11-06-2024 End: 11-06-2024 Bamboo flowsheet Brinda Howell [employer] SPECIALIST Work Phone: [facility] Start: 09-19-2024 End: 09-19-2024 Refill Arcelia Pope [employer]IST Work Phone: [facility] Comment on above: Mixed hyperlipidemia (CMS/HCC) Start: 07-24-2024 End: 07-24-2024 Bamboo flowsheet Arcelia Pope [employer]IST Work Phone: [facility] Start: 07-24-2024 End: 07-24-2024 Bamboo flowsheet Arcelia Goinszpatrick [employer]IST Work Phone: [facility] Start: 07-24-2024 End: 07-24-2024 Office outpatient visit 15 minutes Arcelia Lennontrick [employer]IST Work Phone: [facility] Comment on above: Mixed hyperlipidemia (CMS/HCC) (Primary Dx); Diabetes mellitus type II, non insulin dependent (CMS/HCC); Primary hypertension (CMS/HCC); Type 2 diabetes mellitus without complications (CMS/HCC); Tobacco dependency Start: 07-24-2024 End: 07-24-2024 ambulatory ARCELIA POPE Not Available Start: 07-23-2024 End: 07-23-2024 Orders Only Arcelia Goinszpatrick [employer]IST Work Phone: [facility] Comment on above: Type 2 diabetes harley itus without complications (CMS/HCC) Start: 07-22-2024 End: 07-22-2024 ambulatory Arcelia Darnell GoinsPope Facility:[facility] Start: 07-20-2024 End: 07-20-2024 Clinisync Result Encounter Arcelia Pope [employer]IST Work Phone: [facility] Unsolicited Start: 07-20-2024 End: 07-20-2024 Clinisync Result Encounter Arcelia Pope [employer]IST Work Phone: [facility] Unsolicited Start: 07-19-2024 End: 07-22-2024 Refill Arcelia Pope [employer]IST Work Phone: [facility] Comment on above: Essential (primary) hypertension (CMS/HCC); Essential hypertension (CMS/HCC) Start: 07-18-2024 End: 07-22-2024 Refill Arcelia Pope [employer]IST Work Phone: [facility] Comment on above: Tobacco dependency Start: 04-24-2024 End: 04-24-2024 Bamboo flowsheet Arcelia Pope [employer]IST Work Phone: [facility] Start: 04-24-2024 End: 04-24-2024 Bamboo flowsheet Arcelia Pope [employer]IST Work Phone: [facility] Start: 04-24-2024 End: 04-24-2024 Office outpatient visit 25 minutes Arcelia Pope [employer]IST Work Phone: [facility] Comment on above: Primary hypertension (CMS/HCC) (Primary Dx); Diabetes mellitus type II, non insulin dependent (CMS/HCC); Mixed hyperlipidemia (CMS/HCC); Type 2 diabetes mellitus without complications (CMS/HCC); Tobacco dependency Start: 04-24-2024 End: 04-24-2024 ambulatory ARCELIA POPE Not Available Start: 04-20-2024 End: 04-20-2024 Refill Arcelia Pope [employer]IST Work Phone: [facility] Comment on above: Generalized anxiety disorder (CMS/HCC) Start: 04-19-2024 End: 04-19-2024 Clinisync Result Encounter Shaikh Niyah FORRESTER Work Phone: [facility] Unsolicited Start: 04-19-2024 End: 04-19-2024 Clinisync Result Encounter Shaikh Niyah FORRESTER Work Phone: [facility] Unsolicited Start: 01-22-2024 End: 01-22-2024 ambulatory SHAIKH NIYAH Not Available Start: 08-22-2023 Patient encounter status Shaik sukumar Linder MD Work Phone: [facility] Start: 07-04-2022 End: 07-04-2022 ambulatory [facility] Start: 07-04-2022 End: 07-05-2022 ambulatory MICHAEL HOWELL Facility:[facility] Start: 05-20-2022 ambulatory MICHAEL HOWELL Facility:[facility] Start: 04-19-2022 End: 06-16-[address] DOCTOR SELLERS Facility: Start: 03-28-2022 End: 04-02-2022 Evaluation and management of inpatient NOHEMI AGARWAL Facility:[facility] Start: 03-28-2022 End: 03-28-[address] NOHEMI AGARWAL Facility: Start: 02-11-2022 End: 02-11-[address] NOHEMI AGARWAL Facility: Procedures Date Procedure Procedure Detail Performing Clinician Start: 07-20-2024 [facility] MICROALB CREAT RATIO RANDOM Arcelia Goinszpatrick [employer]IST Work Phone: Start: 04-19-2024 MLR HEMOGLOBIN A1C Miguel Linder MD Work Phone: Start: 07-04-2022 History of placement of stent for coronary artery disease Status post insertion of drug eluting coronary artery stent Shaikh Niyah FORRESTER Work Phone: Plan of Treatment Date Care Activity Detail Author Start: 09-10-2026 Glaucoma screening Diabetes: R etinopathy Screening [facility] Start: 08-24-2026 Screening for malign ant neoplasm of colon [facility] Start: 07-20-2025 Urine screening for protein Diabetes: Urine Protein Screening [facility] Start: 02-06-2025 Hemoglobin A1c measurement Sandra betes: Hemoglobin A1C [facility] Start: 01-01-2025 Influenza vaccination Influenza Vacc ine (#1) [facility] Comment on above: Postponed from 04/14 (Patient Refused) Start: 11-06-2024 End: 11-06-2024 Patient encounter procedure 11/06/2024 2:40 PM EDT Office Visit [facility] [address] [place] [address] Brinda Howell NP [address] [place] [id number] Coronary artery disease involving [place] coronary artery of [place] heart without angina pectoris (CMS/HCC) (Primary Dx); Type 2 diabetes mellitus with other specified complication (CMS/HCC); Pure hyperglyceridemia (CMS/HCC); Primary hypertension (CMS/HCC); Mixed hyperlipidemia (CMS/HCC); Cigarette nicotine dependence without complication [facility] Comment on above: Coronary artery dise ase involving [place] coronary artery of [place] heart without angina pectoris (CMS/HCC) (Primary Dx); Type 2 diabetes mellitus with other specified complication (CMS/HCC); Pure hyperglyceridemia (CMS/HCC); Primary hypertension (CMS/HCC); Mixed hyperlipidemia (CMS/HCC); Cigarette nicotine dependence without complication Start: 11-06-2024 End: 11-06-2025 Basic metabolic 1998 panel - Serum or Plasma Basic metabolic panel Lab Routine Type 2 diabetes mellitus with other specified complication (CMS/HCC) Coronary artery disease involving [place] coronary artery of [place] heart without angina pectoris (CMS/HCC) Primary hypertension (CMS/HCC) Expected: 11/06/2024 (Approximate), Expires: 11/06/2025 [facility] Work Phone: Comment on above: Expected: 11/06/2024 (Approximate), Expires: 11/06/2025 Start: 10-23-2024 End: 10-23-2024 Patient encounter procedure 10/23/2024 2:00 PM EDT Office Visit [facility] [address] [place] [address] Arcelia Pope NP [address] [address] [facility] Start: 07-24-2024 End: 04-24-2025 CBC W Auto Differential panel - Blood CBC and differential Lab Routine Primary hypertension (CMS/HCC) Type 2 diabetes mellitus without complications (CMS/HCC) Expected: 07/24/2024 (Approximate), Expires: 04/24/2025 [facility] Comment on above: Expected: 07/24/2024 (Approximate), Expires: 04/24/2025 Start: 07-24-2024 End: 04-24-2025 Comprehensive metabolic 2000 panel - Serum or Plasma Comprehensive metabolic panel Lab Routine Primary hypertension (CMS/HCC) Type 2 diabetes mellitus without complications (CMS/HCC) Expected: 07/24/2024 (Approximate), Expires: 04/24/2025 [facility] Comment on above: Expected: 07/24/2024 (Approximate), Expires: 04/24/2025 Start: 07-24-2024 End: 04-24-2025 Hemoglobin A1c/Hemoglobin.total in Blood Hemoglobin A1c Lab Routine Primary hypertension (CMS/HCC) Type 2 diabetes mellitus without complications (CMS/HCC) Expected: 07/24/2024 (Approximate), Expires: 04/24/2025 [facility] Comment on above: Expected: 07/24/2024 (Approximate), Expires: 04/24/2025 Start: 07-24-2024 End: 04-24-2025 Lipid 1996 panel - Serum or Plasma Lipid panel Lab Routine Mixed hyperlipidemia ([facility]/HCC) Expected: 07/24/2024 (Approximate), Expires: 04/24/2025 [facility] Work Phone: Comment on above: Expected: 07/24/2024 (Approximate), Expires: 04/24/2025 Start: 07-24-2024 End: 07-24-2024 Patient encounter procedure [facility] Comment on above: Arrived Start: 07-14-2024 Glaucoma screening Diabetes: R etinopathy Screening [facility] Start: 05-16-2024 Urine screening for protein Diabetes: Urine Protein Screening [facility] Start: 04-24-2024 End: 07-24-2024 Microalbumin/Creatinine panel in random Urine Microalbumin / creatinine urine ratio Lab Routine Primary hypertension ([facility]/HCC) Type 2 diabetes mellitus without complications ([facility]/HCC) Expected: 04/24/2024 (Approximate), Expires: 07/24/2024 [facility] Comment on above: Expected: 04/24/2024 (Approximate), Expires: 07/24/2024 Start: 04-24-2024 End: 04-24-2024 Patient encounter procedure 04/24/2024 10:00 AM EDT Office Visit [facility] [address] [place] [address] Arcelia Pope NP [address] [place] [address] Primary hypertension (CMS/HCC) (Primary Dx); Diabetes mellitus type II, non insulin dependent (CMS/HCC); Mixed hyperlipidemia (CMS/HCC) [facility] Comment on above: Primary hypertension (CMS/HCC) (Primary Dx); Diabetes mellitus type II, non insulin dependent (CMS/HCC); Mixed hyperlipidemia (CMS/HCC) Start: 04-22-2024 End: 04-22-2024 Patient encounter procedure 04/22/2024 3:00 PM EDT Office Visit [facility] [address] [place] [address] Arcelia Pope, JT [address] [place] [address] [facility] Start: 04-14-2024 Influenza vaccination Influenza Vacc ine (#1) [facility] Start: 08-14-2023 Hemoglobin A1c measurement Sandra betes: Hemoglobin A1C [facility] Start: 1975 Screening for malign ant neoplasm of colon [facility] Payers Date Payer Category Payer Private Health Insurance [id number] 2023 Private Health Insurance [id number] 2022 [facility] BCBS [id number] 2022 Unknown BCBS BCBS [id number] 2022-Present [phone] [address] [place] [address] [id number] 2022 Unknown [id number] 2019 Unknown [id number] 1977 Unknown [id number] 1977 Unknown [id number]. 593 1977 Unknown [id number]. 593 1977 Unknown [id number] 593 1977 Unknown [id number]. 593 1977 Unknown [id number]. 593 1977 Unknown [id number]. 593 1977 Unknown [id number]. 1259 1977 Unknown [id number] [id number]. 1259 1977 Unknown [id number]. 1259 1977 Unknown [id number] 1259 1959 Self-pay Social History Date Type Detail Facility Start: 08-14-1991 End: 04-24-2024 Tobacco smoking status CTIS Smokes tobacco daily [facility] Start: 08-14-1991 History of tobacco use Cigarette Smo ker [facility] Start: 04-24-2024 End: 11-06-2024 Cigarettes smoked current (pack per day) - Reported 1 [facility] Start: 01-22-2024 End: 04-24-2024 Tobacco use and exposure Smokeless tobacco non-user [facility] Start: 04-24-2024 End: 11-06-2024 Alcoholic beverage intake Lifetime non-drinker (finding) [facility] Start: 04-24-2024 End: 11-06-2024 Tobacco use panel [facility] Start: 1975 Sex assigned at Not on file N [facility] Clinical Notes 04-02-2022 to 11-06-2024 SHERIDAN FISCHER - 11/06/2024 2:40 PM EDRico Howell, JT - 11/06/2024 2:40 PM Reyna Howell, JT - 11/06/2024 6:54 AM EDRico Howell, JT - 11/06/2024 6:54 AM EDTPatient Instructions Note Date & Type Note Facility 11-06-2024 History of Present illness Narrative Pt uses [employer]ia [employer] ingrid 2 sensor, pt has to put a new one on Typically pt ranges between 170-220 Pt works midnights wakes up around 1-2pm glucose is typically under 150 Pt typically takes BP medication in the morning after getting off work and the other BP med he takes before and after work. Pt did not take the losartan-hydro today, he has been out for 3 weeks now pharmacy would not refill. Pt would like a refill on the chantix pt currently smokes over a pack a day, Images from the original note were not included. Omid Nix is a 49 y.o. male presents with chief complaint of No chief complaint on file. HPI: Sugars can range fro 135-200's Diabetes He presents for his follow-up diabetic visit. He has type 2 diabetes mellitus. His disease course has been stable. There are no hypoglycemic associated symptoms. Pertinent negatives for hypoglycemia include no dizziness, nervousness/anxiousness, seizures or tremors. Associated symptoms include foot paresthesias (occ), polydipsia and polyuria. Pertinent negatives for diabetes include no blurred vision, no chest pain and no polyphagia. There are no hypoglycemic complications. Symptoms are improving. Diabetic complications include heart disease and peripheral neuropathy. Pertinent negatives for diabetic complications include no CVA or nephropathy. Risk factors for coronary artery disease include diabetes mellitus, dyslipidemia, hypertension, obesity and male sex. Current diabetic treatment includes oral agent (dual therapy). He is compliant with treatment most of the time. He never participates in exercise. An KEIRA inhibitor/angiotensin II receptor ami is being taken. Eye exam is current. Hypertension This is a chronic problem. The current episode started more than 1 year ago. The problem is unchanged. The problem is controlled. Pertinent negatives include no blurred vision, chest pain, palpitations, peripheral edema or shortness of breath. There are no associated agents to hypertension. Risk factors for coronary artery disease include diabetes mellitus, dyslipidemia, male gender, obesity and smoking/tobacco exposure. Past treatments include beta blockers, calcium channel blockers, angiotensin blockers and diuretics. The current treatment provides significant improvement. There are no compliance problems. Hypertensive end-organ damage includes CAD/NE. There is no history of CVA or heart failure. SUBJECTIVE: MEDICATIONS: Current Outpatient Medications Medication Instructions amLODIPine (NORVASC) 10 mg, Oral, Daily Aspirin Low Dose 81 MG chewable tablet CHEW AND SWALLOW 1 TABLET DAILY atorvastatin (LIPITOR) 80 mg, Nightly busPIRone (BUSPAR) 10 mg, Oral, 2 times daily carvedilol (COREG) 25 mg, Oral, 2 times daily Continuous Blood Gluc Sensor (FreeStyle Ingrid 2 Sensor) misc 1 Units, Daily losartan-hydroCHLOROthiazide (Hyzaar) 100-25 MG tablet 1 tablet, Oral, Daily metFORMIN (GLUCOPHAGE) 500 mg, Oral, 2 times daily omega-3 acid ethyl esters (LOVAZA) 2 g, Oral, 2 times daily semaglutide (RYBELSUS) 14 mg, Oral, Daily before breakfast sildenafil (Viagra) 50 MG tablet TAKE 1 TAB DAILY NEEDED 30 MINUTES TO 4 HOURS PRIOR TO SEXUAL ACTIVITY varenicline (CHANTIX CONTINUING MONTH DONNY) 1 mg, Oral, 2 times daily, Take with full glass of water. ALLERGIES: Allergies Allergen Reactions Codeine Other REVIEW OF SYMPTOMS: Review of Systems Constitutional: Negative for activity change, appetite change and unexpected weight change. HENT: Negative for ear pain, nosebleeds, sneezing, trouble swallowing and voice change. Eyes: Negative for blurred vision, pain, discharge and visual disturbance. Respiratory: Negative for apnea, chest tightness, shortness of breath and wheezing. Cardiovascular: Negative for chest pain, palpitations and leg swelling. Gastrointestinal: Negative for abdominal distention, blood in stool, constipation and diarrhea. Genitourinary: Negative for decreased urine volume, difficulty urinating, dysuria and hematuria. Skin: Negative for color change. Neurological: Negative for dizziness, tremors and seizures. Psychiatric/Behavioral: Negative for agitation, decreased concentration, hallucinations, self-injury and suicidal ideas. The patient is not nervous/anxious. Hematological: Negative for adenopathy. Does not bruise/bleed easily. Endocrine: Positive for polydipsia and polyuria. Negative for cold intolerance, heat intolerance and polyphagia. Allergic/Immunologic: Negative for environmental allergies and food allergies. PAST MEDICAL HISTORY Past Medical History: Diagnosis Date Anxiety CAD (coronary artery disease) ([facility]) ED (erectile dysfunction) [place] HT[place] Hypertension [place]) Smoking Type 2 diabetes mellitus [place] Past Surgical History: Procedure Laterality Date CAROTID STENT family history includes Coronary artery disease in his father and mother; Diabetes in his father; Hypertension in his mother; Seizures in his mother; Stroke in his father and mother. OBJECTIVE: Visit Vitals BP (!) 160/100 (BP Location: Left arm, Patient Position: Sitting, BP Cuff Size: Large adult) Pulse 73 Temp 98.2 F (Temporal) Resp 18 Wt 199 lb 9.6 oz SpO2 97% BMI 30.35 kg/m Smoking Status Every Day BSA 2.08 m Physical Exam Vitals and nursing note reviewed. Constitutional: Appearance: Normal appearance. He is not ill-appearing. HENT: Head: Normocephalic. Right Ear: External ear normal. Left Ear: External ear normal. Nose: Nose normal. Mouth/Throat: Mouth: Mucous membranes are moist. Pharynx: Oropharynx is clear. Eyes: Extraocular Movements: Extraocular movements intact. Conjunctiva/sclera: Conjunctivae normal. Neck: Vascular: No carotid bruit. Cardiovascular: Rate and Rhythm: Normal rate and regular rhythm. Pulses: Normal pulses. Heart sounds: Normal heart sounds. Pulmonary: Effort: Pulmonary effort is normal. Breath sounds: Normal breath sounds. No wheezing or rhonchi. Abdominal: General: Bowel sounds are normal. Palpations: Abdomen is soft. There is no mass. Tenderness: There is no abdominal tenderness. There is no guarding. Musculoskeletal: Cervical back: Neck supple. Right lower leg: No edema. Left lower leg: No edema. Lymphadenopathy: Cervical: No cervical adenopathy. Skin: General: Skin is warm and dry. Capillary Refill: Capillary refill takes 2 to 3 seconds. Neurological: General: No focal deficit present. Mental Status: He is alert. Psychiatric: Mood and Affect: Mood normal. Behavior: Behavior normal. Thought Content: Thought content normal. Judgment: Judgment normal. ASSESSMENT AND PLAN: No follow-ups on file. Problem List Items Addressed This Visit Coronary artery disease involving [place] coronary artery of [place] heart without angina pectoris (CMS/HCC) Current medication: asa, statin, b ami Control risk factors Relevant Medications dapagliflozin (Farxiga) 5 MG Other Relevant Orders Basic metabolic panel Mixed hyperlipidemia (CMS/HCC) On statin therapy Check labs yearly and prn dose changes Primary hypertension (CMS/HCC) Please check blood pressure daily and record DASH diet Limit caffeine Take medication as directed Contact office if chest pain, pressure, dizziness, shortness of breath, swelling legs Recommend slow position changes Current meds: amlodipine, b ami, losartan/hydrochlorothiazide Restart arb/hydrochlorothiazide Fu in 3 weeks for BP check Relevant Orders Basic metabolic panel Type 2 diabetes mellitus with other specified complication (CMS/HCC) - Primary Check blood sugars daily, notify if <70 or >200. Take medications (pills or insulin) as directed. Monitor for s/s of hypoglycemia (sweaty, dizziness, nausea, vomiting, or shakiness). Watch for increase in thirst, urination, or appetite. Inspect feet frequently monitoring for open wounds , and also recommend yearly eye exam. Pt should attempt to remain as physically active as chronic conditions allow, as well as trying to follow a diet low in carbohydrates, and simple sugars. Current meds: asa, statin, b ami, rybelsus, losartan/hydrochlorothiazide A1c: 7.0% Add farxiga at 5mg daily At next appt bring sensor Relevant Medications dapagliflozin (Farxiga) 5 MG Other Relevant Orders Basic metabolic panel Pure hyperglyceridemia (CMS/HCC) Relevant Medications dapagliflozin (Farxiga) 5 MG Cigarette nicotine dependence without complication The patient has been advised of the risks of continued smoking: stroke, NE, all forms of cancer, lung disease, and . Options for quitting smoking include: cold turkey, hypnosis, acupuncture, nicotine replacement meds (gum, lozenges, and patches), Buproprion, and Varenicline. At this time pt is encouraged to evaluate their goals for wanting to quit smoking, and reach out to provider when ready to start this process Has been prescribed chantix, got start month then nothing, will restart chantix Other Visit Diagnoses Essential (primary) hypertension (CMS/HCC) Relevant Medications losartan-hydroCHLOROthiazide (Hyzaar) 100-25 MG tablet dapagliflozin (Farxiga) 5 MG Essential hypertension (CMS/HCC) Relevant Medications losartan-hydroCHLOROthiazide (Hyzaar) 100-25 MG tablet Tobacco dependency Relevant Medications Varenicline Tartrate, Starter, 0.5 MG X 11 & 1 MG X 42 tablet therapy pack varenicline (Chantix Continuing ) 1 MG tablet Associated Problem(s): Cigarette nicotine dependence without complication The patient has been advised of the risks of continued smoking: stroke, NE, all forms of cancer, lung disease, and . Options for quitting smoking include: cold turkey, hypnosis, acupuncture, nicotine replacement meds (gum, lozenges, and patches), Buproprion, and Varenicline. At this time pt is encouraged to evaluate their goals for wanting to quit smoking, and reach out to provider when ready to start this process Has been prescribed chantix, got start month then nothing, will restart chantix Associated Problem(s): Mixed hyperlipidemia (CMS/HCC) On statin therapy Check labs yearly and prn dose changes Associated Problem(s): Type 2 diabetes mellitus with other specified complication (CMS/HCC) Check blood sugars daily, notify if <70 or >200. Take medications (pills or insulin) as directed. Monitor for s/s of hypoglycemia (sweaty, dizziness, nausea, vomiting, or shakiness). Watch for increase in thirst, urination, or appetite. Inspect feet frequently monitoring for open wounds , and also recommend yearly eye exam. Pt should attempt to remain as physically active as chronic conditions allow, as well as trying to follow a diet low in carbohydrates, and simple sugars. Current meds: asa, statin, b ami, rybelsus, losartan/hydrochlorothiazide A1c: 7.0% Add farxiga at 5mg daily At next appt bring sensor Associated Problem(s): Primary hypertension ([facility]) Please check blood pressure daily and record DASH diet Limit caffeine Take medication as directed Contact office if chest pain, pressure, dizziness, shortness of breath, swelling legs Recommend slow position changes Current meds: amlodipine, b ami, losartan/hydrochlorothiazide Restart arb/hydrochlorothiazide Fu in 3 weeks for BP check Associated Problem(s): Coronary artery disease involving [place] coronary artery of [place] heart without angina pectoris (CMS/HCC) Current medication: asa, statin, b ami Control risk factors documented in this encounter [facility] 11-06-2024 Instructions Brinda Howell NP - 11/06/2024 2:40 PM EDT Start chantix, if worsening mood, thoughts of suicide or depression, call office Restart the losartan/hydrochlorothiazide medication For diabetes: add farxiga at 5mg A1c 7% At follow up appt bring your sensor Get labs in about 2 weeks documented in this encounter [facility] 07-24-2024 History of Present illness Narrative Associated Problem(s): Diabetes mellitus type II, non insulin dependent (CMS/HCC) Taking Rybelsus 14 mg was increased a few days ago due to A1C increase. Metformin 500mg Most recent labs: hemoglobin A1C 10.4% Using continuous BG monitor,FreeStyleLibre Average FSBS range from BGs range between 290 and 400. States He Ran Out of rybelsus. When this happened His BG levels spiked;. No episode of hypoglycemia No medication adverse effects reported by the patient. Patient educated on lifestyle modifications, dietary restrictions, signs and symptoms of hypoglycemia/hyperglycemia and importance of eating regular consistent meals. Stressed upon importance of checking blood glucose at home and bring blood glucose log to appointments. All questions, concerns answered and addressed. Encouraged to call office if persistent hypoglycemia/hyperglycemia on home glucose monitoring noted. Pt states he has been trying to improve diet and make modifications. Associated Problem(s): Mixed hyperlipidemia (CMS/HCC) Currently taking Atrovastatin 80mg Denies any myalgias. Most recent lipid panel Triglycerides 430. Added [place] 3 2gm BID Recheck in 6 months.. Associated Problem(s): Primary hypertension (CMS/HCC) Currently taking Amlodipine 10mg Losartan-hydrochlorothiazide 100-25mg Carvedilol 25mg Checks BP at home; Averages are 140's. Work up for secondary HTN - negative. Denies orthostatic changes, dizziness, cough, shortness of breath, swelling in extremities. Continue current regimen. Given BP log, advised pt to record BP and bring log back with them to next visit. Images from the original note were not included. Subjective Patient ID: Omid Nix is a 48 y.o. male who presents for No chief complaint on file.. HPI Discussed labs in detail with patient. Reports he recently had a cold and is getting over it. CBC showed slight WBC increase, reflective of his. Continue to monitor. HTN: Currently taking Amlodipine 10mg Losartan-hydrochlorothiazide 100-25mg Carvedilol 25mg Checks BP at home; Averages are 140's. Work up for secondary HTN - negative. Denies orthostatic changes, dizziness, cough, shortness of breath, swelling in extremities. Continue current regimen. Given BP log, advised pt to record BP and bring log back with them to next visit. HLD: Currently taking Atrovastatin 80mg Denies any myalgias. Most recent lipid panel Triglycerides 430. Added [place] 3 2gm BID Recheck in 6 months.. DMII: Taking Rybelsus 14 mg was increased a few days ago due to A1C increase. Metformin 500mg Most recent labs: hemoglobin A1C 10.4% Using continuous BG monitor,DonaldoyleLibre Average FSBS range from BGs range between 290 and 400. States He Ran Out of rybelsus. When this happened His BG levels spiked;. No episode of hypoglycemia No medication adverse effects reported by the patient. Patient educated on lifestyle modifications, dietary restrictions, signs and symptoms of hypoglycemia/hyperglycemia and importance of eating regular consistent meals. Stressed upon importance of checking blood glucose at home and bring blood glucose log to appointments. All questions, concerns answered and addressed. Encouraged to call office if persistent hypoglycemia/hyperglycemia on home glucose monitoring noted. Pt states he has been trying to improve diet and make modifications. Review of Systems Constitutional: Negative for activity change, appetite change, chills, diaphoresis, fatigue, fever and unexpected weight change. HENT: Negative for congestion, ear pain, rhinorrhea, sinus pressure, sinus pain, sneezing, sore throat, trouble swallowing and voice change. Eyes: Negative for visual disturbance. Respiratory: Negative for cough, chest tightness, shortness of breath and wheezing. Cardiovascular: Negative for chest pain, palpitations and leg swelling. Gastrointestinal: Negative for abdominal distention, abdominal pain, blood in stool, constipation, diarrhea and vomiting. Genitourinary: Negative for decreased urine volume, dysuria, flank pain, frequency, hematuria and urgency. Musculoskeletal: Negative for arthralgias, gait problem, joint swelling and myalgias. Skin: Negative for rash. Neurological: Negative for dizziness, tremors, syncope, weakness, light-headedness and headaches. Psychiatric/Behavioral: Negative for decreased concentration and suicidal ideas. The patient is not nervous/anxious. Hematological: Does not bruise/bleed easily. Endocrine: Negative for cold intolerance, heat intolerance, polydipsia, polyphagia and polyuria. Objective Physical Exam Vitals reviewed. Constitutional: Appearance: Normal appearance. HENT: Right Ear: Tympanic membrane normal. Left Ear: Tympanic membrane normal. Nose: Nose normal. Mouth/Throat: Mouth: Mucous membranes are moist. Pharynx: Oropharynx is clear. Eyes: Pupils: Pupils are equal, round, and reactive to light. Cardiovascular: Rate and Rhythm: Normal rate and regular rhythm. Pulses: Normal pulses. Heart sounds: Normal heart sounds. Pulmonary: Effort: Pulmonary effort is normal. Breath sounds: Normal breath sounds. Abdominal: General: Abdomen is flat. Bowel sounds are normal. Palpations: Abdomen is soft. Skin: Capillary Refill: Capillary refill takes less than 2 seconds. Neurological: Mental Status: He is alert and oriented to person, place, and time. Assessment/Plan Problem List Items Addressed This Visit Diabetes mellitus type II, non insulin dependent (CMS/HCC) Taking Rybelsus 14 mg was increased a few days ago due to A1C increase. Metformin 500mg Most recent labs: hemoglobin A1C 10.4% Using continuous BG monitor,FreeStyleLibre Average FSBS range from BGs range between 290 and 400. States He Ran Out of rybelsus. When this happened His BG levels spiked;. No episode of hypoglycemia No medication adverse effects reported by the patient. Patient educated on lifestyle modifications, dietary restrictions, signs and symptoms of hypoglycemia/hyperglycemia and importance of eating regular consistent meals. Stressed upon importance of checking blood glucose at home and bring blood glucose log to appointments. All questions, concerns answered and addressed. Encouraged to call office if persistent hypoglycemia/hyperglycemia on home glucose monitoring noted. Pt states he has been trying to improve diet and make modifications. Mixed hyperlipidemia (CMS/HCC) - Primary Currently taking Atrovastatin 80mg Denies any myalgias. Most recent lipid panel Triglycerides 430. Added [place] 3 2gm BID Recheck in 6 months.. Relevant Medications aspirin ([facility] Aspirin Adult Low Dose) 81 MG chewable tablet Primary hypertension (CMS/HCC) Currently taking Amlodipine 10mg Losartan-hydrochlorothiazide 100-25mg Carvedilol 25mg Checks BP at home; Averages are 140's. Work up for secondary HTN - negative. Denies orthostatic changes, dizziness, cough, shortness of breath, swelling in extremities. Continue current regimen. Given BP log, advised pt to record BP and bring log back with them to next visit. Tobacco dependency Relevant Medications varenicline (Chantix Continuing Month Donny) 1 MG tablet Varenicline Tartrate, Starter, 0.5 MG X 11 & 1 MG X 42 tablet therapy pack Other Visit Diagnoses Type 2 diabetes mellitus without complications (CMS/HCC) Relevant Medications metFORMIN (Glucophage) 500 MG tablet documented in this encounter [facility] 04-24-2024 History of Present illness Narrative Associated Problem(s): Tobacco dependency Patient counseled on smoking/tobacco cessation. Patient educated on harmful effects of smoking cigarettes/tobacco including increased risk of cardiovascular diseases, chronic lung disease and multiple cancers. Patient was educated and informed of different behavioral and therapeutic interventions that can help with smoking/tobacco use. Patient's questions/concerns were addressed and answered related to therapeutic options. Patient was offered help and encouraged to reach out to provider if/when they are ready to quit. A total of over 3 minutes and up to 10 minutes were spent on Smoking/Tobacco use counseling. Will start on chantix. Associated Problem(s): Diabetes mellitus type II, non insulin dependent (CMS/HCC) Taking Rybelsus 7mg Metformin 500mg Most recent labs: hemoglobin A1C 7.3% Up from 7.1% Average FSBS range from BGs range between 180 and 200 No episode of hypoglycemia No medication adverse effects reported by the patient. Patient educated on lifestyle modifications, dietary restrictions, signs and symptoms of hypoglycemia/hyperglycemia and importance of eating regular consistent meals. Stressed upon importance of checking blood glucose at home and bring blood glucose log to appointments. All questions, concerns answered and addressed. Encouraged to call office if persistent hypoglycemia/hyperglycemia on home glucose monitoring noted. Pt states diet is terrible, eats a lot of sweets. Increased Rybelsus to 14mg Associated Problem(s): Mixed hyperlipidemia (CMS/HCC) Currently taking Atrovastatin 80mg Denies any myalgias. Most recent lipid panel Triglycerides 430. Added [place] 3 2gm BID Recheck in 6 months.. Associated Problem(s): Primary hypertension (CMS/HCC) Currently taking Amlodipine 10mg Losartan-hydrochlorothiazide 100-25mg Carvedilol 25mg Checks BP at home; Averages are 140's. Work up for secondary HTN - negative. Denies orthostatic changes, dizziness, cough, shortness of breath, swelling in extremities. Continue current regimen. Given BP log, advised pt to record BP and bring log back with them to next visit. Images from the original note were not included. Subjective Patient ID: Omid Nix is a 48 y.o. male who presents for Follow-up. HPI HTN: Currently taking Amlodipine 10mg Losartan-hydrochlorothiazide 100-25mg Carvedilol 25mg Checks BP at home; Averages are 140's. Work up for secondary HTN - negative. Denies orthostatic changes, dizziness, cough, shortness of breath, swelling in extremities. Continue current regimen. Given BP log, advised pt to record BP and bring log back with them to next visit. HLD: Currently taking Atrovastatin 80mg Denies any myalgias. Most recent lipid panel Triglycerides 430. Added [place] 3 2gm BID Recheck in 6 months.. Component Ref Range & Units 5 d ago (04/19/24) 5 d ago (04/19/24) TRIGLYCERIDES <=150 mg/dL 430 High 135 Low R CHOLESTEROL <=200 mg/dL 157 3.4 Low R HDL CHOLESTEROL 40 - 60 mg/dL 27 Low 10.5 R Comment: > or =60 mg/dl - LOW CARDIOVASCULAR RISK <40 mg/dl - HIGH CARDIOVASCULAR RISK VLDL CHOLESTEROL mg/dL 86.0 154 High R CHOL HDL RATIO 5.8 0.9 R Comment: 3.3 - 4.4 LOW RISK 4.4 - 7.1 AVERAGE RISK 7.1 - 11.0 MODERATE RISK >11.0 HIGH RISK ASPARTATE AMINO TRANSFERASE 11 Low R ALANINE AMINOTRANSFERASE 28 R ALKALINE PHOSPHATASE 80 R TOTAL PROTEIN 7.4 R ALBUMIN LEVEL 3.6 R ALBUMIN GLOBULIN RATIO 0.9 Resulting Agency [facility] DMII: Taking Rybelsus 7mg Metformin 500mg Most recent labs: hemoglobin A1C 7.3% Average FSBS range from BGs range between 180 and 200 No episode of hypoglycemia No medication adverse effects reported by the patient. Patient educated on lifestyle modifications, dietary restrictions, signs and symptoms of hypoglycemia/hyperglycemia and importance of eating regular consistent meals. Stressed upon importance of checking blood glucose at home and bring blood glucose log to appointments. All questions, concerns answered and addressed. Encouraged to call office if persistent hypoglycemia/hyperglycemia on home glucose monitoring noted. Pt states diet is terrible, eats a lot of sweets. Consider increasing to 14 mg Rybelsus A1C increased past 3 months. Needs DM eye Exam- Will schedule; Review of Systems Constitutional: Negative for activity change, appetite change, chills, diaphoresis, fatigue, fever and unexpected weight change. HENT: Negative for congestion, ear pain, rhinorrhea, sinus pressure, sinus pain, sneezing, sore throat, trouble swallowing and voice change. Eyes: Negative for visual disturbance. Respiratory: Negative for cough, chest tightness, shortness of breath and wheezing. Cardiovascular: Negative for chest pain, palpitations and leg swelling. Gastrointestinal: Negative for abdominal distention, abdominal pain, blood in stool, constipation, diarrhea and vomiting. Genitourinary: Negative for decreased urine volume, dysuria, flank pain, frequency, hematuria and urgency. Musculoskeletal: Negative for arthralgias, gait problem, joint swelling and myalgias. Skin: Negative for rash. Neurological: Negative for dizziness, tremors, syncope, weakness, light-headedness and headaches. Psychiatric/Behavioral: Negative for decreased concentration and suicidal ideas. The patient is not nervous/anxious. Hematological: Does not bruise/bleed easily. Endocrine: Negative for cold intolerance, heat intolerance, polydipsia, polyphagia and polyuria. Objective Physical Exam Vitals reviewed. Constitutional: Appearance: Normal appearance. HENT: Head: Normocephalic and atraumatic. Right Ear: Tympanic membrane normal. Left Ear: Tympanic membrane normal. Nose: Nose normal. Mouth/Throat: Mouth: Mucous membranes are moist. Pharynx: Oropharynx is clear. Eyes: Pupils: Pupils are equal, round, and reactive to light. Cardiovascular: Rate and Rhythm: Normal rate and regular rhythm. Pulses: Normal pulses. Heart sounds: Normal heart sounds. Pulmonary: Effort: Pulmonary effort is normal. Breath sounds: Normal breath sounds. Abdominal: General: Abdomen is flat. Bowel sounds are normal. Palpations: Abdomen is soft. Musculoskeletal: General: Normal range of motion. Cervical back: Normal range of motion. Skin: General: Skin is warm and dry. Capillary Refill: Capillary refill takes less than 2 seconds. Neurological: General: No focal deficit present. Mental Status: He is alert and oriented to person, place, and time. Psychiatric: Mood and Affect: Mood normal. Behavior: Behavior normal. Assessment/Plan Problem List Items Addressed This Visit Diabetes mellitus type II, non insulin dependent (CMS/HCC) Taking Rybelsus 7mg Metformin 500mg Most recent labs: hemoglobin A1C 7.3% Up from 7.1% Average FSBS range from BGs range between 180 and 200 No episode of hypoglycemia No medication adverse effects reported by the patient. Patient educated on lifestyle modifications, dietary restrictions, signs and symptoms of hypoglycemia/hyperglycemia and importance of eating regular consistent meals. Stressed upon importance of checking blood glucose at home and bring blood glucose log to appointments. All questions, concerns answered and addressed. Encouraged to call office if persistent hypoglycemia/hyperglycemia on home glucose monitoring noted. Pt states diet is terrible, eats a lot of sweets. Increased Rybelsus to 14mg Mixed hyperlipidemia (CMS/HCC) Currently taking Atrovastatin 80mg Denies any myalgias. Most recent lipid panel Triglycerides 430. Added [place] 3 2gm BID Recheck in 6 months.. Relevant Medications omega-3 acid ethyl esters (Lovaza) 1 g capsule Other Relevant Orders Lipid panel Primary hypertension (CMS/HCC) - Primary Currently taking Amlodipine 10mg Losartan-hydrochlorothiazide 100-25mg Carvedilol 25mg Checks BP at home; Averages are 140's. Work up for secondary HTN - negative. Denies orthostatic changes, dizziness, cough, shortness of breath, swelling in extremities. Continue current regimen. Given BP log, advised pt to record BP and bring log back with them to next visit. Relevant Orders Microalbumin / creatinine urine ratio Hemoglobin A1c Comprehensive metabolic panel CBC and differential Tobacco dependency Patient counseled on smoking/tobacco cessation. Patient educated on harmful effects of smoking cigarettes/tobacco including increased risk of cardiovascular diseases, chronic lung disease and multiple cancers. Patient was educated and informed of different behavioral and therapeutic interventions that can help with smoking/tobacco use. Patient's questions/concerns were addressed and answered related to therapeutic options. Patient was offered help and encouraged to reach out to provider if/when they are ready to quit. A total of over 3 minutes and up to 10 minutes were spent on Smoking/Tobacco use counseling. Will start on chantix. Relevant Medications Varenicline Tartrate, Starter, (Chantix Starting Month ) 0.5 MG X 11 & 1 MG X 42 tablet therapy pack Other Visit Diagnoses Type 2 diabetes mellitus without complications (CMS/HCC) Relevant Medications semaglutide (Rybelsus) tablet 14 mg (Start on 04/25/2024 7:30 AM) Other Relevant Orders Microalbumin / creatinine urine ratio Hemoglobin A1c Comprehensive metabolic panel CBC and differential documented in this encounter [facility] 04-24-2024 Instructions Arcelia Pope NP - 04/24/2024 10:00 AM EDT FASTING labs ordered. Nothing to eat or drink for 12 hours prior to blood draw. Water and black coffee ok. Your blood pressure is TOO HIGH in the office today. Check your blood pressure at home 3 times per week, preferably in the afternoon. Goal <130/90. Record results in blood pressure log. Bring back with you to your next visit. I would recommend lowering your saturated fat intake (fried foods/fast foods) and increasing your cardiovascular exercise. I would recommend lowering your carbohydrate (bread/sugary food/alcohol) intake to improve your triglycerides. I recommend increasing your dietary intake of poultry, fish, low-fat dairy products, vegetables, fruits, whole grains, legumes, and nuts. Decrease your dietary intake of sodium, sweets, sweetened beverages, and red meats. In addition, increase your exercise to include 150 minutes per week of moderate-intensity, and 75 minutes per week of vigorous aerobic activity Education: Check blood sugars daily, notify if <70 or >200. Take medications (pills or insulin) as directed. Monitor for s/s of hypoglycemia (sweaty, dizziness, nausea, vomiting, or shakiness). Watch for increase in thirst, urination, or appetite. Inspect feet frequently monitoring for open wounds , and also recommend yearly eye exam. Pt should attempt to remain as physically active as chronic conditions allow, as well as trying to follow a diet low in carbohydrates, and simple sugars. Diet: Eat three meals per day. Breakfast, lunch, and dinner. Avoid snacking. Avoid eating after 5/6 pm. Daily protein GOAL 35% of your intake; 30g per meal. Daily calorie GOAL 1,800-2,000 per day. Consider tracking your food intake on MyFtinessPal or LoseIt Water: Increase water intake; GOAL 64-80oz of water per day. Exercise: Increase activity. GOAL 30 minutes, 5 days per week. START SLOW. Start with 5 minutes, 5 days per week. Then increase to 10 days, 5 days per week. Continue to increase until you reach the goal. Increase steps; GOAL 10,000 steps per day. Be sure to get adequate sleep; GOAL 6-8 hours of sleep per night. AVOID SWEETS, SNACKS, SUGARY DRINKS, SODAS, FRIED FOODS, FATTY FOODS!!! documented in this encounter [facility] 12-16-2022 Note This report has been cancelled. [facility] 12-16-2022 Note This report has been cancelled. [facility] 07-04-2022 Note [place] [facility] - [facility] Subjective Omid Nix is a 46 y.o. year old male patient being seen for 2 mo follow up CAD and hypertension. Had labs this morning. Lisinopril was increased to 30mg at last apt in Apr 2022 by Sherry Howell CNP. Says he's cut back to about 6-7 cigarettes daily. Denies chest pain and SOB. Patient Active Problem List Diagnosis Coronary artery disease involving [place] coronary artery of [place] heart without angina pectoris Primary hypertension Mixed hyperlipidemia Status post insertion of drug eluting coronary artery stent History of myocardial infarction Diabetes mellitus type II, non insulin dependent ([facility]) Family History Problem Relation Name Age of Onset Heart attack Father Social History Tobacco Use Smoking status: Every Day Packs/day: 0.50 Types: Cigarettes Substance Use Topics Alcohol use: Not Currently HPI Omid is seen in follow-up. He is a 46-year-old man who in March 2022 presented with non-ST segment ovation myocardial infarction. At that time he was discovered to be hypertensive, diabetic with hemoglobin A1c of 9.1 and dyslipidemic. He is also a smoker. Cardiac catheterization showed severe coronary artery disease. He was reviewed by cardiothoracic surgery and was deemed not a candidate for bypass surgery due to poor distal targets. He then underwent multivessel intervention with drug-eluting stents. The stents were placed in the LAD, diagonal branch and RCA. The rest of the coronary artery disease was left for medical therapy. Following the intervention he join cardiac rehab for only 2 weeks however could not continue due to scheduling issues. He has been maintained on dual antiplatelet therapy with aspirin and Plavix. In addition he is on high intensity statin therapy as well as treatment for his blood pressure and diabetes. he denies chest pain, shortness of breath, palpitations, dizziness, syncope and leg edema. he has good exercise tolerance. There is no claudication. Review of Systems Cardiovascular: Negative for chest pain, dyspnea on exertion, irregular heartbeat, leg swelling, orthopnea, palpitations and syncope. Respiratory: Negative for cough and shortness of breath. Musculoskeletal: Negative for arthritis, falls and neck pain. Gastrointestinal: Negative for diarrhea and dysphagia. Neurological: Negative for light-headedness and loss of balance. Objective Visit Vitals BP 137/90 (BP Location: Left arm, Patient Position: Sitting) Pulse 76 Ht 1.727 m (5' 8 ) Wt 83.9 kg (185 lb) SpO2 98% BMI 28.13 kg/m??? Smoking Status Every Day BSA 2.01 m??? Physical Exam Constitutional: Appearance: He is well-developed. He is not ill-appearing. HENT: Head: Normocephalic and atraumatic. Nose: Nose normal. Eyes: General: No scleral icterus. Pupils: Pupils are equal, round, and reactive to light. Neck: Thyroid: No thyromegaly. Vascular: No JVD. Cardiovascular: Rate and Rhythm: Normal rate and regular rhythm. Heart sounds: Normal heart sounds. No murmur heard. No friction rub. No gallop. Pulmonary: Effort: Pulmonary effort is normal. No respiratory distress. Breath sounds: Normal breath sounds. No wheezing or rales. Chest: Chest wall: No tenderness. Abdominal: General: Bowel sounds are normal. There is no distension. Palpations: Abdomen is soft. Tenderness: There is no abdominal tenderness. Musculoskeletal: General: No swelling. Cervical back: Neck supple. Skin: General: Skin is warm and dry. Neurological: General: No focal deficit present. Mental Status: He is alert and oriented to person, place, and time. Psychiatric: Mood and Affect: Mood normal. Behavior: Behavior is cooperative. Judgment: Judgment normal. Allergies Allergies Allergen Reactions Codeine Medications Current Outpatient Medications: lisinopriL-hydrochlorothiazide 20-25 mg tablet, Take 1 tablet by mouth in the morning., Disp: , Rfl: amLODIPine (Norvasc) 10 mg tablet, Take 1 tablet (10 mg) by mouth in the morning., Disp: 90 tablet, Rfl: 3 aspirin 81 mg chewable tablet, Chew 1 tablet (81 mg) in the morning., Disp: 90 tablet, Rfl: 3 atorvastatin (Lipitor) 80 mg tablet, Take 1 tablet (80 mg) by mouth at bedtime., Disp: 90 tablet, Rfl: 3 Basaglar KwikPen U-100 Insulin 100 unit/mL (3 mL) pen, INJECT 20 UNITS SUBCUTANEOUSLY EVERY DAY, Disp: , Rfl: carvedilol (Coreg) 12.5 mg tablet, Take 1 tablet (12.5 mg) by mouth with breakfast and with evening meal., Disp: 180 tablet, Rfl: 3 clopidogrel (Plavix) 75 mg tablet, Take 1 tablet (75 mg) by mouth in the morning., Disp: 90 tablet, Rfl: 3 lisinopril 10 mg tablet, Take 1 tablet (10 mg) by mouth in the morning. Take in addition to the other lisinopril prescription., Disp: 90 tablet, Rfl: 3 metFORMIN (Glucophage) 500 mg tablet, TABLET BY MOUTH TWICE A DAY, Disp: , Rfl: NovoLOG Flexpen U-100 Insulin 100 unit/mL (3 mL) pen, INJEC (more content not included)... [facility] 04-02-2022 Note MR#: [id number] I [facility] Pt. Name: Omid Nix Admitted: 03/28/2022 Discharged: 04/02/2022 Date of : 1975 Physician: Kirk Riggs MD DISCHARGE SUMMARY DISCHARGING PHYSICIAN: Kirk Riggs MD PRIMARY CARE PHYSICIAN: Nohemi Agarwal M.D. DISCHARGE DIAGNOSES: 1. Wht-AW-xbkiirgaw myocardial infarction type 1, status post PCI x3. 2. Hypertension, uncontrolled. 3. Newly diagnosed diabetes mellitus type 2 with hyperglycemia, A1c 9.1. 4. Dyslipidemia, mixed. 5. Tobacco abuse. CONSULTS: 1. Cardiology. 2. CT Surgery. PROCEDURES/IMAGING: Cardiac catheterization with PCI. HOSPITAL COURSE: This is a 46-year-old male with past medical history significant for hypertension, who was current smoker 1 pack per day, noncompliant with antihypertensives medications, presented to [facility] after developing chest tightness radiating to his left arm associated with shortness of breath and diaphoresis to [facility] where he was found to have [id number]-WR-ghxpgiqvb NE with high-intensity troponin of 279. He was started on nitroglycerin and heparin drip and was transferred to [facility] for further evaluation and management. He admitted that he is noncompliant with antihypertensive medications. Cardiology was consulted. He underwent cardiac catheterization, revealed multivessel disease. CT Surgery was consulted for CABG versus PCI. CT Surgery evaluated the patient and recommended PCI, that he is not a good candidate for CABG due to anatomy of LAD. His COVID-19 was negative. He underwent PCI to LAD, diagonal branch and RCA. He tolerated the procedure well. He was started on aspirin and Plavix and high-intensity Lipitor. Coreg was also added to his regimen. His hypertension was uncontrolled. His amlodipine was increased from 5 mg to 10 mg once daily and lisinopril was increased from 10 mg to 40 mg once daily and Coreg was added 12.5 mg every 12 hours. He was also found to have newly diagnosed diabetes mellitus type 2 with hyperglycemia. A1c was 9.1. He was started on Lantus 10 units once daily that was titrated up to 20 units once daily and monitored his blood sugar with sliding scale insulin, that he will continue to do so. He was also started on metformin 500 mg twice daily. Diabetic counseling was provided. He also has mixed dyslipidemia with HDL 20. He was started on high-intensity Lipitor 80 mg once daily. He was given prescription for glucometer along with testing strips and supplies. Smoking cessation counseling was provided and counseled for medication compliance, specifically with aspirin and Plavix. He is chest pain free during his hospitalization, doing well on room air. DISCHARGE CONDITION: Stable medical condition. DISCHARGE DISPOSITION: Home. MEDICATIONS AT THE TIME OF DISCHARGE: Per med rec in computer. FOLLOWUP: 1. Follow up with primary care physician, Dr. Agarwal in 1 week. 2. Follow up with Cardiology provider, SANDY Powell on 04/19/2022 at 9 a.m. TIME SPENT: Time spent for the discharge summary and coordination of care 48 minutes. Electronically Signed by: Kirk Riggs MD 04/04/2022 07:25 A ____ Kirk Riggs MD I personally saw this patient on the day of the encounter, performed the madden portion(s) of the service and participated in the management and confirm the resident's documentation. Please note there may be an additional personal documentation from me. Date Dict: 04/02/2022/03:38 P/Edilson Wagner CNP Date Trans: 04/02/2022 07:27 P/reg [id number] cc: Nohemi Agarwal M.D. [address] [facility] [id number] [facility] Evaluation note Diagnosis Tobacco dependency- Primary Tobacco use disorder Wellness examination Coronary artery disease involving [place] coronary artery of [place] heart without angina pectoris (CMS/HCC) Other male erectile dysfunction Primary hypertension (CMS/HCC) Unspecified essential hypertension Diabetes mellitus type II, non insulin dependent (CMS/HCC) Type II or unspecified type diabetes mellitus without mention of complication, not stated as uncontrolled Mixed hyperlipidemia (CMS/HCC) Mixed hyperlipidemia Status post insertion of drug eluting coronary artery stent- Primary Diabetes mellitus type II, non insulin dependent (CMS/HCC) Type II or unspecified type diabetes mellitus without mention of complication, not stated as uncontrolled Mixed hyperlipidemia (CMS/HCC) Mixed hyperlipidemia Tobacco dependency Tobacco use disorder Primary hypertension (CMS/HCC) Unspecified essential hypertension Primary hypertension (CMS/HCC)- Primary Unspecified essential hypertension Diabetes mellitus type II, non insulin dependent (CMS/HCC) Type II or unspecified type diabetes mellitus without mention of complication, not stated as uncontrolled Mixed hyperlipidemia (CMS/HCC) Mixed hyperlipidemia Type 2 diabetes mellitus without complications (CMS/HCC) Tobacco dependency Tobacco use disorder Tobacco dependency Tobacco use disorder documented in this encounter [facility]* Diagnosis Tobacco dependency- Primary Tobacco use disorder Wellness examination Coronary artery disease involving [place] coronary artery of [place] heart without angina pectoris (CMS/HCC) Other male erectile dysfunction Primary hypertension (CMS/HCC) Unspecified essential hypertension Diabetes mellitus type II, non insulin dependent (CMS/HCC) Type II or unspecified type diabetes mellitus without mention of complication, not stated as uncontrolled Mixed hyperlipidemia (CMS/HCC) Mixed hyperlipidemia Status post insertion of drug eluting coronary artery stent- Primary Diabetes mellitus type II, non insulin dependent (CMS/HCC) Type II or unspecified type diabetes mellitus without mention of complication, not stated as uncontrolled Mixed hyperlipidemia (CMS/HCC) Mixed hyperlipidemia Tobacco dependency Tobacco use disorder Primary hypertension (CMS/HCC) Unspecified essential hypertension Primary hypertension (CMS/HCC)- Primary Unspecified essential hypertension Diabetes mellitus type II, non insulin dependent (CMS/HCC) Type II or unspecified type diabetes mellitus without mention of complication, not stated as uncontrolled Mixed hyperlipidemia (CMS/HCC) Mixed hyperlipidemia Type 2 diabetes mellitus without complications (CMS/HCC) Tobacco dependency Tobacco use disorder Essential (primary) hypertension (CMS/HCC) Unspecified essential hypertension Essential hypertension ([facility]) Unspecified essential hypertension documented in this encounter [facility]* Diagnosis Tobacco dependency- Primary Tobacco use disorder Wellness examination Coronary artery disease involving [place] coronary artery of [place] heart without angina pectoris ([facility]) Other male erectile dysfunction Primary hypertension ([facility]) Unspecified essential hypertension Diabetes mellitus type II, non insulin dependent ([facility]) Type II or unspecified type diabetes mellitus without mention of complication, not stated as uncontrolled Mixed hyperlipidemia ([facility]) Mixed hyperlipidemia Status post insertion of drug eluting coronary artery stent- Primary Diabetes mellitus type II, non insulin dependent ([facility]) Type II or unspecified type diabetes mellitus without mention of complication, not stated as uncontrolled Mixed hyperlipidemia ([facility]) Mixed hyperlipidemia Tobacco dependency Tobacco use disorder Primary hypertension ([facility]) Unspecified essential hypertension Primary hypertension ([facility])- Primary Unspecified essential hypertension Diabetes mellitus type II, non insulin dependent ([facility]) Type II or unspecified type diabetes mellitus without mention of complication, not stated as uncontrolled Mixed hyperlipidemia ([facility]) Mixed hyperlipidemia Type 2 diabetes mellitus without complications ([facility]) Tobacco dependency Tobacco use disorder Type 2 diabetes mellitus without complications ([facility]) documented in this encounter [facility]* Diagnosis Tobacco dependency- Primary Tobacco use disorder Wellness examination Coronary artery disease involving [place] coronary artery of [place] heart without angina pectoris ([facility]) Other male erectile dysfunction Primary hypertension ([facility]) Unspecified essential hypertension Diabetes mellitus type II, non insulin dependent ([facility]) Type II or unspecified type diabetes mellitus without mention of complication, not stated as uncontrolled Mixed hyperlipidemia ([facility]) Mixed hyperlipidemia Status post insertion of drug eluting coronary artery stent- Primary Diabetes mellitus type II, non insulin dependent ([facility]) Type II or unspecified type diabetes mellitus without mention of complication, not stated as uncontrolled Mixed hyperlipidemia ([facility]) Mixed hyperlipidemia Tobacco dependency Tobacco use disorder Primary hypertension ([facility]) Unspecified essential hypertension Primary hypertension ([facility])- Primary Unspecified essential hypertension Diabetes mellitus type II, non insulin dependent ([facility]) Type II or unspecified type diabetes mellitus without mention of complication, not stated as uncontrolled Mixed hyperlipidemia ([facility]) Mixed hyperlipidemia Type 2 diabetes mellitus without complications ([facility]) Tobacco dependency Tobacco use disorder Mixed hyperlipidemia ([facility])- Primary Mixed hyperlipidemia Diabetes mellitus type II, non insulin dependent ([facility]) Type II or unspecified type diabetes mellitus without mention of complication, not stated as uncontrolled Primary hypertension ([facility]) Unspecified essential hypertension Type 2 diabetes mellitus without complications ([facility]) Tobacco dependency Tobacco use disorder documented in this encounter [facility]* Diagnosis Generalized anxiety disorder ([facility]) Generalized anxiety disorder documented in this encounter [facility]* Diagnosis Primary hypertension ([facility])- Primary Unspecified essential hypertension Diabetes mellitus type II, non insulin dependent ([facility]) Type II or unspecified type diabetes mellitus without mention of complication, not stated as uncontrolled Mixed hyperlipidemia ([facility]) Mixed hyperlipidemia Type 2 diabetes mellitus without complications ([facility]) Tobacco dependency Tobacco use disorder documented in this encounter [facility]* Diagnosis Tobacco dependency- Primary Tobacco use disorder Wellness examination Coronary artery disease involving [place] coronary artery of [place] heart without angina pectoris ([facility]) Other male erectile dysfunction Primary hypertension ([facility]) Unspecified essential hypertension Diabetes mellitus type II, non insulin dependent ([facility]) Type II or unspecified type diabetes mellitus without mention of complication, not stated as uncontrolled Mixed hyperlipidemia ([facility]) Mixed hyperlipidemia Status post insertion of drug eluting coronary artery stent- Primary Diabetes mellitus type II, non insulin dependent ([facility]) Type II or unspecified type diabetes mellitus without mention of complication, not stated as uncontrolled Mixed hyperlipidemia ([facility]) Mixed hyperlipidemia Tobacco dependency Tobacco use disorder Primary hypertension ([facility]) Unspecified essential hypertension Primary hypertension ([facility])- Primary Unspecified essential hypertension Diabetes mellitus type II, non insulin dependent ([facility]) Type II or unspecified type diabetes mellitus without mention of complication, not stated as uncontrolled Mixed hyperlipidemia ([facility]) Mixed hyperlipidemia Type 2 diabetes mellitus without complications ([facility]) Tobacco dependency Tobacco use disorder Mixed hyperlipidemia ([facility])- Primary Mixed hyperlipidemia Diabetes mellitus type II, non insulin dependent ([facility]) Type II or unspecified type diabetes mellitus without mention of complication, not stated as uncontrolled Primary hypertension ([facility]) Unspecified essential hypertension Type 2 diabetes mellitus without complications ([facility]) Tobacco dependency Tobacco use disorder Mixed hyperlipidemia ([facility]) Mixed hyperlipidemia documented in this encounter [facility]* Diagnosis Tobacco dependency- Primary Tobacco use disorder Wellness examination Coronary artery disease involving [place] coronary artery of [place] heart without angina pectoris ([facility]) Other male erectile dysfunction Primary hypertension ([facility]) Unspecified essential hypertension Diabetes mellitus type II, non insulin dependent ([facility]) Type II or unspecified type diabetes mellitus without mention of complication, not stated as uncontrolled Mixed hyperlipidemia ([facility]) Mixed hyperlipidemia Status post insertion of drug eluting coronary artery stent- Primary Diabetes mellitus type II, non insulin dependent (CMS/HCC) Type II or unspecified type diabetes mellitus without mention of complication, not stated as uncontrolled Mixed hyperlipidemia ([facility]) Mixed hyperlipidemia Tobacco dependency Tobacco use disorder Primary hypertension ([facility]) Unspecified essential hypertension Primary hypertension ([facility])- Primary Unspecified essential hypertension Diabetes mellitus type II, non insulin dependent ([facility]) Type II or unspecified type diabetes mellitus without mention of complication, not stated as uncontrolled Mixed hyperlipidemia ([facility]) Mixed hyperlipidemia Type 2 diabetes mellitus without complications ([facility]) Tobacco dependency Tobacco use disorder Mixed hyperlipidemia ([facility])- Primary Mixed hyperlipidemia Diabetes mellitus type II, non insulin dependent ([facility]) Type II or unspecified type diabetes mellitus without mention of complication, not stated as uncontrolled Primary hypertension ([facility]) Unspecified essential hypertension Type 2 diabetes mellitus without complications ([facility]) Tobacco dependency Tobacco use disorder Type 2 diabetes mellitus with other specified complication ([facility])- Primary Pure hyperglyceridemia ([facility]) Pure hyperglyceridemia Coronary artery disease involving [place] coronary artery of [place] heart without angina pectoris ([facility]) Primary hypertension ([facility]) Unspecified essential hypertension Mixed hyperlipidemia ([facility]) Mixed hyperlipidemia Cigarette nicotine dependence without complication Essential (primary) hypertension ([facility]) Unspecified essential hypertension Essential hypertension ([facility]) Unspecified essential hypertension Tobacco dependency Tobacco use disorder documented in this encounter [facility] Summary Purpose Family History No Family History Records FoundNo Family History Records FoundNo Family History Records FoundNo Family History Records FoundNo Family History Records Found Advance Directives No Advanced Directives Records FoundNo Advanced Directives Records FoundNo Advanced Directives Records FoundNo Advanced Directives Records FoundNo Advanced Directives Records Found Additional Source Comments (unrecognized sect ion and content) No Status Records FoundNo Status Records FoundNo Status Records FoundNo Status Records FoundNo Status Records Found INFORMATION SOURCE (unrecogn ized section and content) DATE CREATED AUTHOR 04/09/2022 [facility] DATE CREATED AUTHOR AUTHOR'S ORGANIZ ATION 10/21/2022 [facility] DATE CREATED AUTHOR AUTHOR'S ORGANIZ ATION 01/21/2023 [facility] DATE CREATED AUTHOR AUTHOR'S ORGANIZ ATION 07/25/2024 [facility] DATE CREATED AUTHOR AUTHOR'S ORGANIZ ATION 11/07/2024 [facility] Care Teams (unrecognized sec tion and content) Business Systems Manager Relationship Specialty Start Date End Date Shaikh Linder MD [address] [place] [id number] PCP - [employer] 05/14/23 Umberto Lindo MD [address] [place] [phone] PCP - General Family Medicine 03/21/24 Arcelia Pope NP [address] [place] [address] Nurse Practitioner Family Medicine 03/21/24 Business Systems Manager Relationship Specialty Start Date End Date Shaikh Linder MD [address] [place] [phone] PCP - [employer] 05/14/23 Umberto Lindo MD [address] [place] [phone] PCP - General Family Medicine 03/21/24 Arcelia Pope NP [address] [place] [phone] Nurse Practitioner Family Medicine 03/21/24 Business Systems Manager Relationship Specialty Start Date End Date Shaikh Linder MD [address] [place] [phone] PCP - [employer] 05/14/23 Umberto Lindo MD [address] [place] [phone] PCP - General Family Medicine 03/21/24 Arcelia Pope [employer]IST [address] [place] [address] Nurse Practitioner Family Medicine 03/21/24 Business Systems Manager Relationship Specialty Start Date End Date Shaikh Linder MD [address] [place] [phone] PCP - [employer] 05/14/23 Umberto Lindo MD [address] [place] [phone] PCP - General Family Medicine 03/21/24 Arcelia oPpe, [employer]IST [address] [place] [address] Nurse Practitioner Family Medicine 03/21/24 Business Systems Manager Relationship Specialty Start Date End Date Shaikh Linder MD [address] [place] [phone] PCP - [employer] 05/14/23 Umberto Lindo MD [address] [place] [phone] PCP - General Family Medicine 03/21/24 Arcelia Pope NP [address] [place] [address] Nurse Practitioner Family Medicine 03/21/24 Business Systems Manager Relationship Specialty Start Date End Date Shaikh Linder MD [address] [place] [address] PCP - [employer] 05/14/23 Umberto Lindo MD [address] [place] [address] PCP - General Family Medicine 03/21/24 Arcelia Pope NP [address] [place] [address] Nurse Practitioner Family Medicine 03/21/24 Business Systems Manager Relationship Specialty Start Date End Date Shaikh Linder MD [address] [place] [address] PCP - [employer] 05/14/23 Umberto Lindo MD [address] [place] [address] PCP - General Family Medicine 03/21/24 Arcelia Pope NP [address] [place] [address] Nurse Practitioner Family Medicine 03/21/24 Business Systems Manager Relationship Specialty Start Date End Date Shaikh Linder MD [address] [place] [phone] PCP - [employer] 05/14/23 Umberto Lindo MD [address] [place] [address] PCP - General Family Medicine 03/21/24 Arcelia Pope, JT [address] [place] [address] Nurse Practitioner Family Medicine 03/21/24 Business Systems Manager Relationship Specialty Start Date End Date Shaikh Linder MD [address] [place] [phone] PCP - [employer] 05/14/23 Umberto Lindo MD [address] [place] [address] PCP - General Family Medicine 03/21/24 Arcelia Pope, [employer] PO[employer] SPECIALIST [address] [place] [address] Nurse Practitioner Family Medicine 03/21/24 Business Systems Manager Relationship Specialty Start Date End Date Shaikh Linder MD [address] [place] [address] PCP - [employer] 05/14/23 Umberto Lindo MD [address] [place] [address] PCP - General Family Medicine 03/21/24 Arcelia Pope NP [address] [place] [address] Nurse Practitioner Family Medicine 03/21/24 Business Systems Manager Relationship Specialty Start Date End Date Shaikh Linder MD [address] [place] [address] PCP - [employer] 05/14/23 Umberto Lindo MD [address] [place] [phone] PCP - General Family Medicine 03/21/24 Arcelia Pope NP [address] [place] [address] Nurse Practitioner Family Medicine 03/21/24 Business Systems Manager Relationship Specialty Start Date End Date Shaikh Linder MD [address] [place] [address] PCP - [employer] 05/14/23 Umberto Lindo MD [address] [place] [phone] PCP - General Family Medicine 03/21/24 Arcelia Pope NP [address] [place] [address] Nurse Practitioner Family Medicine 03/21/24 Reason for Visit (unrecogniz ed section and content) Reason Comments Med Refill Reason Comments Med Change Request Reason Comments Follow-up FOR RECORDS PERTAINING TO PATIENTS WHO ARE OR HAVE BEEN ENROLLED IN A CHEMICAL DEPENDENCY/SUBSTANCEABUSE PROGRAM, SOME INFORMATION MAY BE OMITTED. This clinical summary was aggregated from multiple sources. Caution should be exercised in using it in the provision of clinical care. This summary normalizes information from multiple sources, and as a consequence, information in this document may materially change the coding, format and clinical context of patient data. In addition, data may be omitted in some cases. CLINICAL DECISIONS SHOULD BE BASED ON THE PRIMARY CLINICAL RECORDS. [facility], [facility]. provides no warranty or guarantee of the accuracy or completeness of information in this document.
[2024-11-22 15:56] LABS: Anion Gap 13.4; BUN Creatinine Ratio 12.6; Calcium 8.7 mg/dL (8.5-10.1); Chloride 100 mmol/L (98-107); Estimated GFR (African America >60 (>=60 mL/min/1.73m^2); Estimated GFR (Non-African Ame >60 (>=60 mL/min/1.73m^2); Glucose 134 mg/dL (74-106); Potassium 3.4 mmol/L (3.5-5.1); Sodium 139 mmol/L (136-145)
== END 2024-11-22 15:20 | disposition home or self-care (01) ==
LOC: LAB 15:20
PROVIDERS: PCP Nurse Practitioner; Visit Provider Nurse Practitioner
DX: E11.69 Type 2 diabetes mellitus with other specified complication (principal); I25.10 Atherosclerotic heart disease of native coronary artery without angina pectoris; I10 Essential (primary) hypertension
CPT/HCPCS: 36415; 80048

== ENCOUNTER 2025-07-23 12:26 | Outpatient (OUT) | payer OTHER, BC, SELFPAY ==
--- OUTSIDE RECORDS SUMMARY | 2025-07-23 12:30 | XMS_ITS | CCD ---
Author Organization [facility] Care Team Providers Care Bricklayer Tender Name Role Phone NOHEMI AGARWAL Primary Care Unavailable BARABRA TONY Admitting Unavailable UNKNOWN, PHYSICIAN Referring Unavailable KIRK RIGGS Attending Unavailable DANTE, MICHAEL Admitting Unavailable DANTE, MICHAEL Attending Unavailable SHAIKH Sukumar LINDER Primary Care Unavailable DANTE, MICHAEL Consulting Unavailable FAADRIANNA, H Admitting Unavailable SHAIKH Sukumar LINDER Attending Unavailable SHAIKH LINDER H Consulting Unavailable MISC, DR WRAY Admitting Unavailable MISC, DR WRAY Attending Unavailable STEFANO, DR GARCIA Primary Care Unavailable MISC, DR WRAY Consulting Unavailable STEFANO, DR GARCIA Primary Care Unavailable PAY ., DR ROSE Admitting Unavailable PAY ., DR ROSE Attending Unavailable WINDSOR, DR BLAYNE Piedra Consulting Unavailable PAY ., DR ROSE Consulting Unavailable STEFANO, DR GARCIA Primary Care Unavailable HOMAR CORCORAN Admitting Unavailable NILO, HOMAR Attending Unavailable HOMAR CORCORAN Consulting Unavailable KALI ., GHANSHYAM Consulting Unavailable LORI APONTE Consulting Unavailable DANTE, MICHAEL Admitting Unavailable DANTE, MICHAEL Attending Unavailable STEFANO, DR GARCIA Primary Care Unavailable FADI CHING Attending Unavailable Niyah FORRESTER, Unavailable Umberto Lindo MD Primary Care Provider [phone] Niko INDUSTRIAL HYGIENE TECHNICIAN, Arcelia Unavailable Arcelia Pope Attending UnavailArcelia Silverman Admitting Unavaila rahul Pope INDUSTRIAL HYGIENE TECHNICIAN, Arcelia Unavailable [phone] BRINDA HOWELL Attending Unavailable BRINDA HOWELL Attending Unavailable BRINDA HOWELL Attending Unavailable BRINDA HOWELL Attending Unavailable ARCELIA POPE Attending Unavailabl e ARCELIA POPE Attending Unavailabl e Allergies Allergy ClassificationReported Allergen(s)Allergy TypeDate of OnsetReaction(s) Facility (3 sources)Codeine; Translations: [CODEINE]Drug Brxwbbb23-35-3896Chr [facility] Repository (20 sources)CodeineDrug Sgitwrw34-66-2308VyfmtGHCI Healthcare Medications Current Medications MedicationDrug Class(es)DatesSig (Normalized)Sig (Original)atorvastatin 80 mg oral tablet (20 sources)HMG-CoA Reductase InhibitorStart: 05-31-2023 End: 59-73-6439wuyd 1 tablet by mouth at bedtimeatorvastatin (Lipitor) 80 MG tablet Indications: Coronary artery disease involving newtok coronary artery 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 angina pectoris Take 1 tablet (80 mg) by mouth at bedtime 90 tablet 06/29/2025 ActiveContinuous Blood Gluc Sensor (FreeStyle Ingrid 2 Sensor) misc (20 sources)Start: 89-89-1188Prfnupzwwb Blood Gluc Sensor (FreeStyle Ingrid 2 Sensor) misc 1 Units in the morning. 03/06/2023 ActivemetFORMIN hydrochloride 500 mg oral tablet (20 sources)BiguanideStart: 03-31-2025 End: 94-60-1755onjj 2 tablets by mouth in the morningmetFORMIN (Glucophage) 500 MG tablet Indications: Type 2 diabetes mellitus without complications (HCC) Take 2 tablets (1,000 mg) by mouth in the morning and 2 tablets (1,000 mg) in the evening. Take with meals. 360 tablet 1 03/31/2025 06/29/2025 ActiveStart: 08-01-2023 End: 88-52-8881xfmo 1 tablet by mouth in the morningmetFORMIN (Glucophage) 500 MG tablet Indications: Type 2 diabetes mellitus without complications (HCC) Take 1 tablet (500 mg) by mouth in the morning and 1 tablet (500 mg) before bedtime. 180 tablet 1 01/28/2025 03/31/2025 Discontinued (Reorder)omega-3 acid ethyl esters (prison) 1000 mg oral capsule (20 sources)Start: 04-24-2024 End: 56-68-9415fifz 1 capsule by mouth at bedtimeomega-3 acid ethyl esters (Lovaza) 1 g capsule Indications: Mixed hyperlipidemia Take 2 capsules (2g) by mouth in the morning and 2 capsules (2 g) before bedtime. 360 capsule 1 03/31/2025 5Activesildenafil 50 mg oral tablet (20 sources)Phosphodiesterase 5 InhibitorStart: 83-19-1131jwqutytzgv (Viagra) 50 MG tablet Indications: Other male erectile dysfunction TAKE 1 TAB DAILY NE EDED 30 MINUTES TO 4 HOURS PRIOR TO SEXUAL ACTIVITY 9 tablet 3 02/22/2024 Active Completed/Discontinued Medications MedicationDrug Class(es)DatesSig (Normalized)Sig (Original)amLODIPine 10 mg oral tablet (20 sources)Dihydropyridine Calcium Channel BlockerStart: 02-19-2024 End: 43-35-7279mviz 1 tablet by mouth once dailyamLODIPine (Norvasc) 10 MG tablet Indications: Essential (primary) hypertension , Essential hypertension Take 1 tablet (10 mg) by mouth Daily 90 tablet 1 01/28/2025 03/31/2025 Discontinued (Reorder)aspirin 81 mg chewable tablet (20 sources)Platelet Aggregation Inhibitor, Nonsteroidal Anti-inflammatory Drug Start: 07-09-2023 End: 51-43-8701[place] Low Dose 81 MG chewable tablet Indications: Mixed hyperlipidemia CHEW AND SWALLOW 1 TABLET DAILY 90 tablet 1 09/19/2024 03/31/2025 Discontinued (Reorder)busPIRone hydrochloride 10 mg oral tablet (20 sources)Start: 03-25-2024 End: 70-93-9037mghv 1 tablet by mouth in the morningbusPIRone (Buspar) 10 MG tablet Indications: Generalized anxiety disorder Take 1 tablet (10 mg) by mouth in the morning and 1 tablet (10 mg) before bedtime. 180 tablet 1 12/05/2024 03/31/2025 Discontinued (Reorder)carvedilol 25 mg oral tablet (20 sources)alpha-Adrenergic Ami, beta-Adrenergic BlockerStart: 02-22-2024 End: 48-84-6150jwic 1 tablet by mouth twice dailycarvedilol (Coreg) 25 MG tablet Indications: Essential (primary) hypertension , Essential hypertension TAKE 1 TABLET BY MOUTH TWICE A DAY 180 tablet 1 07/22/2024 03/31/2025 Discontinued (Reorder)dapagliflozin 5 mg oral tablet (10 sources)Sodium-Glucose Cotransporter 2 InhibitorStart: 11-06-2024 End: 93-78-0765pbjy 1 tablet by mouth once dailydapagliflozin (Farxiga) 5 MG Indications: Type 2 diabetes mellitus with other specified complication (HCC) , Pure hyperglyceridemia , Coronary artery disease involving newtok coronary artery 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 angina pectoris , Essential (primary) hypertension Take 1 tablet (5 mg) by mouth Daily 90 tablet 11/06/2024 01/27/2025 Discontinued (Cost of medication)hydroCHLOROthiazide 25 mg / losartan potassium 100 mg oral tablet (20 sources)Thiazide Diuretic, Angiotensin 2 Receptor BlockerStart: 02-19-2024 End: 12-86-6311bodo 1 tablet by mouth once dailylosartan-hydroCHLOROthiazide (Hyzaar) 100-25 MG tablet Indications: Essential (primary) hypertension , Essential hypertension Take 1 tablet by mouth Daily 90 tablet 1 11/06/2024 03/31/2025 Discontinued (Reorder)semaglutide 14 mg oral tablet (20 sources)Start: 04-25-2024 End: 06-30-0209iytg 1 tablet by mouth before mealtimesemaglutide (Rybelsus) 14 MG tablet Indications: Type 2 diabetes mellitus without complications (HCC) Take 1 tablet (14 mg) by mouth in the morning. Take before meals. 30 tablet 11 07/23/2024 03/31/2025 Discontinued (Reorder)Start: 11-13-2023 End: 19-53-7516nqku 1 tablet by mouth before mealtimesemaglutide (Rybelsus) 7 MG tablet Indications: Type 2 diabetes mellitus without complications (CMS/HCC) Take 1 tablet (7 mg) by mouth in the morning. Take before meals. 90 tablet 11/13/2023 04/24/2024 Discontinued (Dose adjustment)varenicline 1 mg oral tablet (20 sources)Partial Cholinergic Nicotinic AgonistStart: 07-24-2024 End: 96-24-2118hxot 1 tablet by mouth once in the morningvarenicline (Chantix Continuing Month Donny) 1 MG tablet Indications: Tobacco dependency Take 1 tablet (1 mg) by mouth in the morning and 1 tablet (1 mg) before bedtime. Take with full glass of water. 60 tablet 1 02/12/2025 03/31/2025 Discontinued (Reorder) Start: 89-94-0702lmlc 1 tablet by mouth once dailyVarenicline Tartrate, Starter, (Chantix Starting ) 0.5 MG X 11 & 1 MG X 42 tablet therapy pack Indications: Tobacco dependency Take 1 tablet by mouth Daily 53 each 04/24/2024 ActiveStart: 28-47-5576ybep 1 tablet by mouth once dailyVarenicline Tartrate, Starter, (Chantix Starting Month ) 0.5 MG X 11 & 1 MG X 42 tablet therapy pack Indications: Tobacco dependency Take 1 tablet by mouth Daily 53 each 04/24/2024 ActiveStart: 01-22-2024 End: 57-69-0253sqev 1 tablet by mouth once dailyVarenicline Tartrate, Starter, 0.5 MG X 11 & 1 MG X 42 tablet therapy pack Indications: Tobaccodependency TAKE 1 TABLET BY MOUTH EVERY DAY DIRECTED ON PACKAGE 53 each 07/22/2024 07/24/2024 Discontinued (Therapy completed) Problems Active Problems Problem ClassificationProblemDateDocumented DateEpisodic/ChronicAcute myocardial infarction (1 source)Non-ST elevation (NSTEMI) myocardial infarction; Translations: [NON-ST ELEVATION MYOCARDIAL INFARCT]Onset: 31-50-8361YodidmpXyutmjw disorders (4 sources)Generalized anxiety disorder; Translations: [Generalized anxiety disorder]27-70-4856XrozvrbVpckjgeg atherosclerosis and other heart disease (20 sources)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; Translations: [Oldmyocardial infarction]Onset: 07-04-2022 ChronicDiabetes mellitus with complications (20 sources)Type 2 diabetes mellitus; Translations: [Type 2 diabetes mellitus with other specified complication]Onset: 118835-35-2464EulspltKvzblijgg of lipid metabolism (20 sources)Hyperlipidemia, unspecified; Translations: [Mixed hyperlipidemia] Onset: 07-04-2022 Resolved: 01-78-8559QnmpzwfYibojnrmu hypertension (20 sources)Essential (primary) hypertension; Translations: [Essential hypertension]Onset: 18-93-4468KtwbpmbJjieytkkzzoi with complications and secondary hypertension (2 sources)Hypertensive urgency; Translations: [Hypertensive emergency]Onset: 34-77-9805CkaztkxTrhax male genital disorders (20 sources)Other male erectile dysfunction; Translations: [Impotence of organic origin]Onset: 721568-94-8809VsylcmgNvtdzwzgn-qnxrtvz disorders (20 sources)Nicotine dependence, cigarettes, uncomplicated; Translations: [Tobacco dependence syndrome]Onset: 03-30-2022 Resolved: 478871-64-7052GfetuubLudrwqjrzltm (1 source)CONTACT W/AND (SUSP) EXPOS COVID-19; Translations: [CONTACT W/AND (SUSP) EXPOS COVID-19]Onset: 03-30-2022 Past or Other Problems Problem ClassificationProblemDateDocumented DateEpisodic/ChronicCoronary atherosclerosis and other heart disease (6 sources)Presence of coronary angioplasty implant and graft; Translations: [PRESENCE COR ANGPLSTY IMPLANT AND GRAFT]Onset: 03-97-6415IkzimiefAjxpdqus mellitus without complication (20 sources)Type 2 diabetes mellitus without complications; Translations: [Type 2 diabetes mellitus]Onset: 07-04-2022 Resolved: 966458-77-4549PmrkeqeZhjkjc and vomiting (4 sources)Vomiting, unspecified; Translations: [Nausea with vomiting, unspecified]Onset: 10-90-3308TevblcnrOftqlwsdcrxzo gastroenteritis (1 source)Noninfective gastroenteritis and colitis, unspecified; Translations: [NONINFECTIVE GE AND COLITIS UNS]Onset: 19-99-0701MjvpqhrmWfavfgmbtmv chest pain (3 sources)Other chest pain; Translations: [OTHER CHEST PAIN]Onset: 03-28-2022 EpisodicOther aftercare (1 source)Other watermaster (current) drug therapy; Translations: [OTH ASSISTANT SALES MANAGER CURRENT DRUG THERAPY]Onset: 17-23-8719CkrimjejAweyf injuries and conditions due to external causes (1 source)Underdosing of other antihypertensive drugs, initial encounter; Translations: [UNDRDOS OTH ANTIHYPERTENSIV RX INIT]Onset: 95-96-2559Deonmqey Residual codes; unclassified (1 source)Patient's intentional underdosing of medication regimen for other reason; Translations: [PT INTENT UNDERDOS MED OTH REASON]Onset: 03-30-2022 EpisodicResidual codes; unclassified (1 source)Patient's other noncompliance with medication regimen; Translations: [PT OTH NONCOMPLIANCE W/ MED REGIMEN]Onset: 83-29-6656Ayngduzh Results Test NameValueInterpretationReference IhvnoYxxeddapMjL7u (Bld) [Mass fraction]on 30-32-3524Ncuhynpbghxoqa and review of laboratory resultsAbSelect Specialty Hospital HealthcareLaboratory - Hematology and Cell countson 70-07-6755QmJ4o (Bld) [Mass fraction]8.3 %[facility] BASIC METABOLIC PANELon 70-18-7246Zlreu gap [Moles/Vol]13.4 mmol/LNOMS HealthcareCalcium [Mass/Vol]8.7 mg/dL8.5 - 10.1 mg/dLNOLA HealthcareChloride [Moles/Vol]100 mmol/L98 - 107 mmol/LNOMS Healthcare CO2 [Moles/Vol]29 mmol/L21.0 - 32.0 mmol/LNOMS HealthcareCreatinine [Mass/Vol] 1.19 mg/dL0.70 - 1.30 mg/dLNOLA HealthcareGFR/1.73 sq M.predicted CKD-EPI (S/P/Bld) [Vol rate/Area]>60>=60 mL/min/1.73m 2NOMS HealthcareGlucose [Mass/Vol] 134 mg/zGFyfi44 - 106 mg/dLNOLA HealthcareInterpretation and review of laboratory resultsAbAscension Genesys HospitalPotassium [Moles/Vol]3.4 mmol/LLow3.5 - 5.1 mmol/LNOMS HealthcareSodium [Moles/Vol]139 mmol/L136 - 145 mmol/LNOMS HealthcareTBH EGFR-NON AF TAJIK>60>=60 mL/min/1.73m 2NOMS HealthcareUrea nitrogen [Mass/Vol]15 mg/dL7.0 - 18.0 mg/dLNOLA HealthcareUrea nitrogen/Creatinine [Mass ratio]12.6 mg/mgNOLA HealthcareCLINISYNCNOMS HealthcareLDL Cholesterol Measuredon 57-44-5269GHS Cholesterol Djxznfgv25 mg/dL Normal0-100[facility] Physician GroupComment on above:Result Comment: LDL ATP III CLASSIFICATION LDL less than 100 mg/dL Optimal LDL 100-129 mg/dL Near or above optimal LDL 130-159 mg/dL Borderline high LDL 160-189 mg/dL High LDL greater than 189 mg/dL Very high PERFORMED BY: [address] [address] PATHOLOGIST OILING MACHINE OPERATOR PUSHPA CONWAY M.D.Performed By: #### LDLD, LIPID #### [address] [address] USALipid Panelon 65-68-6820Yqxtkdnuvrk [Mass/Vol]144 mg/dL Seopkl154-757Hao [facility] Physician GroupComment on above:Result Comment: Chol less than 200 mg/dl low risk Chol 201-239 mg/dl borderline risk Chol 240 mg/dl and greater high riskPerformed By: #### LDLD, LIPID #### [address] [address] USACholesterol in HDL [Mass/Vol]26 mg/oPHzathr05-22Tso [facility] Physician GroupComment on above:Result Comment: HDL CHOL ATP-III CLASSIFICATION Cardiovascular Risk HDL > or equal to 60 mg/dL LOW HDL < 40 mg/dL HIGHPerformed By: #### LDLD, LIPID #### [address] [address] USACholesterol.total/Cholesterol in HDL [Mass ratio]5.5 {ratio}Normal<5.0The [facility] Physician GroupComment on above:Result Comment: PERFORMED BY: [address] [address] PATHOLOGIST OILING MACHINE OPERATOR PUSHPA CONWAY M.D.Performed By: #### LDLD, LIPID #### [facility] [address] [place] [address] USALDL Cholesterol,Hfqrhfjthm78 mg/dLNormal0-100The [facility] Physician GroupComment on above:Result Comment: LDL ATP III CLASSIFICATION LDL less than 100 mg/dL Optimal LDL 100-129 mg/dL Near or above optimal LDL 130-159 mg/dL Borderline high LDL 160-189 mg/dL High LDL greater than 189 mg/dL Very highPerformed By: #### LDLD, LIPID #### [facility] [address] [place] [address] USATriglyceride w/Glfvgn973 mg/dLHigh0-149The [facility] Physician GroupComment on above:Result Comment: TRIG ATP III CLASSIFICATION TRIG less than 150 mg/dL Normal TRIG 150-199 mg/dL Borderline high TRIG 200-500 mg/dL High TRIG greater than 500 mg/dL Very high Standard traceable to the Center for Disease Conrtrol and Prevention (CDC) test method. If the triglyceride result is greater than 400, LDLC and related calculations cannot be calculated and resulted.Performed By: #### LDLD, LIPID #### [facility] [address] [id number] USAVLDL CHOLESTEROLNot performedNormHCA Florida [facility] Physician GroupComment on above:Performed By: #### LDLD, LIPID #### [facility] [address] [place] [address] USATBH MICROALB CREAT RATIO RANDOMon 96-41-4021BKMYEKOKWF URINE QVKZWL737.21 mg/dL20.00 - 300.00 mg/dLNOCarondelet HealthMICROALBUM CREATININE RATIO UR15.5 mg/g0.0 - 29.9 mg/gNOMS HealthcareComment on above:NO MICROALBUMINURIA 0-29 MG/G CLINICAL MICROALBUMINURIA 30-300 MG/G MACROALBUMINURIA >300 MG/G MICROALBUMIN URINE RANDOM3.1 mg/dLNINF - 30.0 mg/dLNOLA HealthcareCLINISYNCNSEILING REGIONAL [facility]ICAL [facility] – SEILING HealthcareMLR HEMOGLOBIN A1Con 67-87-8444Zvgczyn [Mass/Vol]163 mg/dLNOCarondelet HealthWongpibiulVfD1j (Bld) [Mass fraction]7.3 %High4.5 - 6.2 %NOMS HealthcareComment on above:ADA RECOMMENDED LIMIT 4.0 - 6.0 ADA THERAPEUTIC TARGET < 7.0 ACTION SUGGESTED > 7.0 Interpretation and review of laboratory resultsAbnormalNOLA HealthcareCLINISYNC NOMS HealthcareBILIRUBIN CONJUGATED (DIRECT)on 23-68-5889QQRB, CONJUGATED0.2 mg/dLNormal0.0-0.2[facility], AvonComment on above:Performed By: #### HSTROPN, CMADM, LIPA, CMP #### [facility] [address] [address] [address] Amaya Davis URINEon 46-50-2923DCRAY CREAT94.14 mg/dLNormal 20.00-300.00[facility], AvonComment on above:Performed By: #### CREAU #### [facility] [address] [address] [address] Amaya Pepper-Upon 18-86-2190Jzheln-[id number] Omid Nix 1975 M Date Provider Department Center 07/04/2022 FADI PEDERSON [facility] Family History Problem Relation Age of Onset Heart attack Father Family Status - Relation Status Age at Father Level of Service:26839 [place] OFFICE/OUTPATIENT ESTABLISHED MOD MDM 30-39 MIN Reason for Visit and Comments: Coronary Artery Disease [187] Hypertension [433686]NormalBethesda North HospitalLIPID PROFILEon 43-99-2193SYTX-HDL RATIO NORMSEE [facility] Memorial HospitalComment on above:Result Comment: 3.3 - 4.4 LOW RISK 4.4 - 7.1 AVERAGE RISK 7.1 - 11.0 MODERATE RISK >11.0 HIGH RISKPerformed By: #### CMP, LIPID #### [facility] [address] [place] [address] Dr. Amaya SchultzCholesterol [Mass/Vol]98 mg/dLNormal<=200The [facility] Comment on above:Performed By: #### CMP, LIPID #### [facility] [address] [place] [address] Dr. Amaya SchultzCholesterol in HDL [Mass/Vol]26 mg/dLCritically umb55-11Csc [facility] CenterComment on above:Performed By: #### CMP, LIPID #### [facility] [address] [place] [address] Dr. Amaya SchultzCholesterol in LDL [Mass/Vol]36.2 mg/dLOhioHealth Arthur G.H. Bing, MD, Cancer CenterComment on above:Performed By: #### CMP, LIPID #### [facility] [address] [address] [address] Amaya SchultzCholesterol.total/Cholesterol in HDL [Mass ratio]3.8 {ratio} NormalThe [facility] on above:Performed By: #### CMP, LIPID #### [facility] [address] [address] [address] Amaya Campbell NORMAL> or = 60 mg/dl - LOW CARDIOVASCULAR RISK <40 mg/dl - HIGH CARDIOVASCULAR RISKOhioHealth Arthur G.H. Bing, MD, Cancer CenterComment on above:Performed By: #### CMP, LIPID #### [facility] [address] [place] [address] Dr. Amaya SchultzLDL CALC NORMALSEE BELOWOhioHealth Arthur G.H. Bing, MD, Cancer CenterComment on above:Result Comment: <100 mg/dl OPTIMAL 100 - 129 mg/dl NEAR OR ABOVE OPTIMAL 130 - 159 mg/dl BORDERLINE HIGH 160 - 189 mg/dl HIGH >190 mg/dl VERY HIGH Performed By: #### CMP, LIPID #### [facility] [address] [place] [address] Dr. Amaya SchultzTriglyceride [Mass/Vol]179 mg/dLCritically high<=150The [facility] on above:Performed By: #### CMP, LIPID #### [facility] [address] [place] [address] Dr. Amaya SchultzVLDL CALC35.8 mg/dLNoSouthern Ohio Medical CenterComascension river district hospital on above: Performed By: #### CMP, LIPID #### [facility] [address] [place] [address] Dr. Amaya SchultzMICROALBUMIN, RAND URon 59-30-0238aFWD<1.3Normal<=30.0The [facility] CenterComment on above:Performed By: #### HSTROPN, CMADM, LIPA, CMP #### [facility] [address] [place] [address] Dr. Amaya SchultzPROF 14(COMP METB)on 46-72-0244Axubtwe [Mass/Vol]3.8 g/dLNormal 3.4-5.0The Aj HospitalComment on above:Performed By: #### CMP, LIPID #### [facility] [address] [address] [address] Amaya SchultzAlbumin/Globulin [Mass ratio]1.0 {ratio}NormalThe [facility] Medical CenterComment on above:Performed By: #### CMP, LIPID #### [facility] [address] [address] [address] Amaya ConnerP [Catalytic activity/Vol]99 U/FEgvuge31-192Tut [facility] CenterComment on above:Performed By: #### CMP, LIPID #### [facility] [address] [address] [address] Amaya ConnerT [Catalytic activity/Vol]25 U/OLjoete73-92Rje [facility] CenterComment on above:Performed By: #### CMP, LIPID #### [facility] [address] [address] [address] Amaya Houstonon gap [Moles/Vol]10.6 mmol/LNormalThe [facility] Comment on above:Performed By: #### CMP, LIPID #### [facility] [address] [address] [address] Amaya SchultzAST [Catalytic activity/Vol]14 U/LCritically daq68-20Txk [facility] Hospital at Southwoodsment on above:Performed By: #### CMP, LIPID #### [facility] [address] [address] [address] Amaya SchultzBilirubin [Mass/Vol]1.0 mg/dLNormal0.2-1.0The [facility] Comment on above:Performed By: #### CMP, LIPID #### [facility] [address] [address] [address] Amaya SchultzCalcium [Mass/Vol]8.8 mg/dLNormal8.5-10.1The [facility] Comment on above:Performed By: #### CMP, LIPID #### [facility] [address] [address] [address] Amaya SchultzChloride [Moles/Vol]99 mmol/LGghpfl24-699Adp [facility] Comment on above:Performed By: #### CMP, LIPID #### [facility] [address] [address] [address] Amaya SchultzCO2 [Moles/Vol]28.4 mmol/OVukkcu37.0-32.0The [facility] Comment on above:Performed By: #### CMP, LIPID #### [facility] [address] [address] [address] Amaya SchultzCreatinine [Mass/Vol]1.10 mg/dLNormal0.70-1.30The [facility] CenterComment on above:Performed By: #### CMP, LIPID #### [facility] [address] [address] [address] Amaya KendrickGFR-AF TAJIK>60Normal>=60The [facility] CenterComment on above:Performed By: #### CMP, LIPID #### [facility] [address] [place] [address] Dr. Amaya KendrickGFR-NON AF TAJIK>60Normal>=60The [facility] CenterComment on above:Performed By: #### CMP, LIPID #### [facility] [address] [address] [address] Amaya SchultzGlobulin (S) [Mass/Vol]3.7 g/dLNormalThe [facility] CenterComment on above:Performed By: #### CMP, LIPID #### [facility] [address] [address] [address] Amaya SchultzGlucose [Mass/Vol]145 mg/dLCritically lcrj81-225Hrz [facility] CenterComment on above:Performed By: #### CMP, LIPID #### [facility] [address] [address] [address] Amaya SchultzPotassium [Moles/Vol]4.0 mmol/LNormal3.5-5.1The [facility] Comment on above:Performed By: #### CMP, LIPID #### [facility] [address] [address] [address] Amaya SchultzProtein [Mass/Vol]7.5 g/dLNormal6.4-8.2The [facility] Comment on above:Performed By: #### CMP, LIPID #### [facility] [address] [address] [address] Amaya SchultzSodium [Moles/Vol]134 mmol/LCritically quf246-427Sih [facility] CenterComment on above:Performed By: #### CMP, LIPID #### [facility] [address] [address] [address] Amaya Boss nitrogen [Mass/Vol]28.0 mg/dLCritically high7.0-18.0The [facility] CenterComment on above:Performed By: #### CMP, LIPID #### [facility] [address] [address] [address] Amaya Boss nitrogen/Creatinine [Mass ratio]25.5 mg/mgNormalThe [facility] County Regional Medical CenterComment on above:Performed By: #### CMP, LIPID #### [facility] [address] [address] [address] Amaya Bedolla GLUCOSE LABon 05-80-4873Ynmhgyu [Mass/Vol]196 mg/wUUeoa50-498 The [facility] HospitalComment on above:Performed By: #### 17460, 95197, 64729, 43245, 59587, 03797 #### [facility] [address] [place] [address], USABASIC METABOLIC PANELon 13-50-6604Xdbmqwf [Mass/Vol]8.8 mg/dLNormal8.6-10.3The [facility] HospitalComment on above:Order Comment: No: Do not add to previous drawPerformed By: #### 82175, 49028 #### [facility] [address] [place] [address], USAChloride [Moles/Vol]105 mmol/PAuhwye46-388Nbx [facility] HospitalComment on above:Order Comment: No: Do not add to previous drawPerformed By: #### 55571, 52735 #### [facility] [address] [place] [address], USACO2 [Moles/Vol]21 mmol/VNdxqmv22-68Iqm [facility] HospitalComment on above:Order Comment: No: Do not add to previous draw Performed By: #### 02477, 03840 #### [facility] [address] [place] [address], USACreatinine [Mass/Vol]0.80 mg/dLNormal0.70-1.30The [facility] HospitalComment on above:Order Comment: No: Do not add to previous drawPerformed By: #### 83111, 63460 #### [facility] [address] [place] [address], USAGFR/1.73 sq M.predicted among non-blacks MDRD (S/P/Bld) [Vol rate/Area]mL/min/{1.73_m2}Normal>60The [facility] Comment on above:Order Comment: No: Do not add to previous drawResult Comment: [facility]'s estimated glomerular filtration rate (eGFR) will no [...] not disproportionately affect any one group of individuals.Performed By: #### 91639, 71329 #### [facility] [address] [place] [address], USAGlucose [Mass/Vol]190 mg/uNRhyj76-819Mkb [facility] HospitalComment on above:Order Comment: No: Do not add to previous drawPerformed By: #### 38352, 09520 #### [facility] [address] [place] [address], USAPotassium [Moles/Vol]4.3 mmol/LNormal3.5-5.1The [facility] HospitalComment on above:Order Comment: No: Do not add to previous drawPerformed By: #### 68591, 57750 #### [facility] [address] [place] [address], USASodium [Moles/Vol]133 mmol/SYpz305-998Gxh [facility] HospitalComment on above:Order Comment: No: Do not add to previous drawPerformed By: #### 50819, 38746 #### [facility] [address] [place] [address], USAUrea nitrogen [Mass/Vol]13 mg/dLNormal7-25The [facility] HospitalComment on above:Order Comment: No: Do not add to previous drawPerformed By: #### 93465, 12353 #### [facility] [address] [place] [address], USACBC COMPLETE BLOOD COUNTon 11-54-5744Cavsabebooh distribution width (RBC) [Ratio]12.8 %Ltmvvu83.5-15.0The [facility] HospitalComment on above:Order Comment: No: Do not add to previous draw Performed By: #### 13630, 32404, 57366, 86337, 44349, 47259 #### [facility] [address] [place] [address], USAHematocrit (Bld) [Volume fraction]45.0 %Rcstxl15.0-50.0The [facility] HospitalComment on above:Order Comment: No: Do not add to previous drawPerformed By: #### 48623, 69595, 16754, 81938, 63616, 67033 #### [facility] [address] [place] [address], USAHemoglobin (Bld) [Mass/Vol]15.9 g/uKNunlcc07.0-17.0The [facility] HospitalComment on above:Order Comment: No: Do not add to previous drawPerformed By: #### 80906, 56177, 40411, 77438, 12865, 89950 #### [facility] [address] [place] [address], [facility] (RBC) [Entitic mass]29.6 ycMpkadb64.0-33.0The [facility] HospitalComment on above:Order Comment: No: Do not add to previous drawPerformed By: #### 82392, 06849, 19634, 79473, 79847, 74295 #### [facility] [address] [place] [address], [facility] (RBC) [Mass/Vol]35.3 g/qNHjom23.0-35.0The [facility] HospitalComment on above:Order Comment: No: Do not add to previous drawPerformed By: #### 16969, 27341, 92963, 03675, 20891, 91387 #### [facility] [address] [facility] [place] [address], [facility] (RBC) [Entitic vol]83.8 rDGpdiyw91.0-98.0The [facility] HospitalComment on above:Order Comment: No: Do not add to previous drawPerformed By: #### 32661, 29758, 40251, 89960, 70199, 20391 #### [facility] [address] [facility] [place] [address], [facility] CENTERNucleated RBC/100 WBC (Bld) [Ratio]0 %Normal0-0The [facility] HospitalComment on above:Order Comment: No: Do not add to previous drawPerformed By: #### 70294, 01041, 97011, 20845, 99856, 92885 #### [facility] [address] [facility] [place] [address], USAPLAT [id number] 10*3/lMGpybzr417-769Jhk [facility] HospitalComment on above:Order Comment: No: Do not add to previous draw Performed By: #### 15680, 84869, 30044, 61609, 94849, 79547 #### [facility] [address] [facility] [place] [address], USARBC (Bld) [#/Vol]5.37 10*6/uLNormal4.20-5.70The [facility] HospitalComment on above:Order Comment: No: Do not add to previous drawPerformed By: #### 41919, 67918, 84144, 54610, 81639, 01404 #### [facility] [address] [facility] [place] [address], USAWBC (Bld) [#/Vol]11.52 10*3/uLHigh4.00-10.60The [facility] HospitalComment on above:Order Comment: No: Do not add to previous drawPerformed By: #### 79670, 64707, 71204, 97480, 70755, 96363 #### [facility] [address] [facility] [place] [address], USACardiovascular Lab Reporton [id number] Lab ReportUnTriHealth Patient Name: [facility] MR #: [id number] Physician: Fadi Courtney Department of Janine Ching Medicine Service Date: 03/31/2022 Division of Birthdate: 1975 Cardiology Room #: 3AB [id number] Adult Cardiovascular Services [address] [address] Cardiovascular Laboratory Report INDICATION: The patient is a 46-year-old man, who was admitted with iyl-YC-oxttnvp elevation myocardial infarction. Cardiac catheterization showed severe [...] signed the consent. He was brought to medical laboratory specialist in a fasting state. The right groin was prepped and draped in usual fashion. Micropuncture technique and ultrasound guidance were used for access in the right common femoral artery. Inner cannula angiography was performed, followed by upsizing to a 6-Estonian x 11 cm sheath. Heparin was administered intravenously and therapeutic ACT confirmed during the rest of the procedure and additional heparin given as needed. A 6-Estonian XB3.5 guiding catheter was advanced into the [...] atmospheres. The stent balloon was pulled back shelter into the LAD and kissing balloon inflation in the LAD and diagonal was performed using the stent balloon in the diagonal branch inflated at 11 atmospheres and the Emerge NC 2.5 x 20 mm noncompliant balloon inflated at 16 atmospheres in the LAD. Angiography was performed. An NC Emerge 3.0 x 8 mm noncompliant balloon (more content not included)...NormalThe [facility] North HospitalMAGNESIUM BLOODon 72-63-4943Zxpzyjkkv [Mass/Vol]1.9 mg/dLNormal1.9-2.7The [facility] HospitalComment on above:Order Comment: No: Do not add to previous draw Performed By: #### 97557 #### [facility] [address] [facility] [place] [address], USAPOC GLUCOSE LABon 21-97-9745Quczuim [Mass/Vol]288 mg/dLHigh 70-100The [facility] HospitalComment on above:Performed By: #### 01983 #### [facility] [address] [facility] [place] [address], USAGlucose [Mass/Vol]178 mg/uNDkjj73-226Ukh [facility] HospitalComment on above:Performed By: #### 55799 #### [facility] [address] [place] [address], USAGlucose [Mass/Vol]182 mg/hGXfhl25-990Bts [facility] HospitalComment on above:Performed By: #### 16243, 70156, 49594, 40793, 75268, 45852 #### [facility] [address] [place] [address], USAGlucose [Mass/Vol]202 mg/uCFtad68-052Eqm [facility] HospitalComment on above:Performed By: #### 10866 #### [facility] [address] [place] [address], USABASIC METABOLIC PANELon 04-00-2121Xporskp [Mass/Vol]9.0 mg/dLNormal8.6-10.3The [facility] HospitalComment on above:Order Comment: No: Do not add to previous drawPerformed By: #### 14357 #### [facility] [address] [place] [address], USAChloride [Moles/Vol]103 mmol/ZXogkcd73-850Tpl [facility] HospitalComment on above:Order Comment: No: Do not add to previous drawPerformed By: #### 17461 #### [facility] [address] [place] [address], USACO2 [Moles/Vol]21 mmol/TUexopf07-80Nlz [facility] HospitalComment on above:Order Comment: No: Do not add to previous draw Performed By: #### 92543 #### [facility] [address] [place] [address], USACreatinine [Mass/Vol]0.90 mg/dLNormal0.70-1.30The [facility] HospitalComment on above:Order Comment: No: Do not add to previous drawPerformed By: #### 38219 #### [facility] [address] [place] [address], USAGFR/1.73 sq M.predicted among non-blacks MDRD (S/P/Bld) [Vol rate/Area]mL/min/{1.73_m2}Normal>60The [facility] Comment on above:Order Comment: No: Do not add to previous drawResult Comment: [facility]'s estimated glomerular filtration rate (eGFR) will no [...] not disproportionately affect any one group of individuals.Performed By: #### 89510 #### [facility] [address] [place] [address], USAGlucose [Mass/Vol]247 mg/lAEhbl94-504Sgi [facility] HospitalComment on above:Order Comment: No: Do not add to previous drawPerformed By: #### 49272 #### [facility] [address] [place] [address], USAPotassium [Moles/Vol]4.1 mmol/LNormal3.5-5.1The [facility] HospitalComment on above:Order Comment: No: Do not add to previous drawPerformed By: #### 65637 #### [facility] [address] [place] [address], USASodium [Moles/Vol]131 mmol/KCyg553-018Nxj [facility] HospitalComment on above:Order Comment: No: Do not add to previous drawPerformed By: #### 67979 #### [facility] [address] [place] [address], USAUrea nitrogen [Mass/Vol]20 mg/dLNormal7-25The [facility] HospitalComment on above:Order Comment: No: Do not add to previous drawPerformed By: #### 69612 #### [facility] [address] [place] [address], [facility] CENTERCBC COMPLETE BLOOD COUNTon 14-46-9342Skdfydltqgc distribution width (RBC) [Ratio]12.5 %Gkqplr53.5-15.0The [facility] HospitalComment on above:Order Comment: No: Do not add to previous draw Performed By: #### 95608 #### [facility] [address] [place] [address], USAHematocrit (Bld) [Volume fraction]46.6 %Tttjsk36.0-50.0The [facility] HospitalComment on above:Order Comment: No: Do not add to previous drawPerformed By: #### 34440 #### [facility] [address] [place] [address], USAHemoglobin (Bld) [Mass/Vol]16.5 g/hIEfdwei03.0-17.0The [facility] HospitalComment on above:Order Comment: No: Do not add to previous drawPerformed By: #### 01535 #### [facility] [address] [place] [address], [facility] (RBC) [Entitic mass]29.4 fuHbsgqx63.0-33.0The [facility] HospitalComment on above:Order Comment: No: Do not add to previous drawPerformed By: #### 30424 #### [facility] [address] [place] [address], [facility] CENTERMCHC (RBC) [Mass/Vol]35.4 g/oDPjny29.0-35.0The [facility] HospitalComment on above:Order Comment: No: Do not add to previous drawPerformed By: #### 72547 #### [facility] [address] [place] [address], [facility] (RBC) [Entitic vol]82.9 mNRtmohe66.0-98.0The [facility] HospitalComment on above:Order Comment: No: Do not add to previous drawPerformed By: #### 22967 #### [facility] [address] [place] [address], USANucleated RBC/100 WBC (Bld) [Ratio]0 %Normal0-0The [facility] HospitalComment on above:Order Comment: No: Do not add to previous drawPerformed By: #### 59447 #### [facility] [address] [place] [address], [place]APLAT [id number] 10*3/aYDnbaop266-765Euj [facility] HospitalComment on above:Order Comment: No: Do not add to previous draw Performed By: #### 34115 #### [facility] [address] [place] [address], USARBC (Bld) [#/Vol]5.62 10*6/uLNormal4.20-5.70The [facility] HospitalComment on above:Order Comment: No: Do not add to previous drawPerformed By: #### 89597 #### [facility] [address] [place] [address], USAWBC (Bld) [#/Vol]10.77 10*3/uLHigh4.00-10.60The [facility] HospitalComment on above:Order Comment: No: Do not add to previous drawPerformed By: #### 01497 #### [facility] [address] [place] [address], USAMAGNESIUM BLOODon 24-05-0113Gwacjkovr [Mass/Vol]1.9 mg/dL Normal1.9-2.7The [facility] HospitalComment on above:Order Comment: No: Do not add to previous drawPerformed By: #### 87483 #### [facility] [address] [place] [address], USAPOC GLUCOSE LABon 01-17-7610Ccndrhj [Mass/Vol]251 mg/dLHigh 70-100The [facility] HospitalComment on above:Performed By: #### 64005 #### [facility] [address] [place] [address], USAGlucose [Mass/Vol]245 mg/mAKywk99-105Crl [facility] HospitalComment on above:Performed By: #### 58205, 12817, 88085, 53207, 38971, 46725 #### [facility] [address] [place] [address], USAGlucose [Mass/Vol]221 mg/rXHflt61-504Sug [facility] HospitalComment on above:Performed By: #### 38032, 80613, 29090, 45507, 77978, 29238 #### [facility] [address] [place] [address], USAGlucose [Mass/Vol]227 mg/zZRbfp72-236Mkq [facility] HospitalComment on above:Performed By: #### 76474 #### [facility] [address] [place] [address], USAUFH HEPARIN ASSAYon 21-72-6477XHSJXEBKPYLKMI HEPARIN0.44 IU/mLNormal0.30-0.70The [facility] HospitalComment on above: Result Comment: Rivaroxaban and Apixaban will interfere with the anti Xa assay used to monitor UFH and LMWH.Performed By: #### 68905, 89594, 07110, 69343, 87175, 14378 #### [facility] [address] [place] [address], USAUNFRACTIONATED HEPARIN0.33 IU/mLNormal0.30-0.70The [facility] HospitalComment on above:Result Comment: Rivaroxaban and Apixaban will interfere with the anti Xa assay used to monitor UFH and LMWH.Performed By: #### 62019, 38699, 80937, 58130, 09350, 01898 #### [facility] [address] [place] [address], USAPOC GLUCOSE LABon 21-53-9740Yhokena [Mass/Vol]203 mg/dLHigh 70-100The [facility] HospitalComment on above:Performed By: #### 78892 #### [facility] [address] [place] [address], USAGlucose [Mass/Vol]234 mg/uXHtxl78-443Zif [facility] HospitalComment on above:Performed By: #### 13862 #### [facility] [address] [place] [address], USAGlucose [Mass/Vol]180 mg/jTCgbc31-461Qfu [facility] HospitalComment on above:Performed By: #### 53921 #### [facility] [address] [place] [address], USAGlucose [Mass/Vol]226 mg/nELoqd33-527Pkw [facility] HospitalComment on above:Performed By: #### 00188 #### [facility] [address] [facility] [place] [address], [place]APOC SARS COV2 ANTIGEN NEGATIVEon 16-67-4447SEL SARS COV2 ANTIGEN NEGNegativeNormalNEGATIVEThe [facility] HospitalComment on above:Result Comment: Negative results should be treated as presumptive and [...] antigen from SARS-CoV-2 in direct nasopharyngeal swab (INDUSTRIAL HYGIENE TECHNICIAN) specimens from individuals who are suspected of [...] Waiver, Certificate of Compliance, or Certificate of Accreditation.Performed By: #### 55229 #### [facility] [address] [facility] [place] [address], USAUFH HEPARIN ASSAYon 20-11-8280YCMKBGQTKCIJZK HEPARIN0.23 IU/mLLow0.30-0.70The [facility] HospitalComment on above:Result Comment: Rivaroxaban and Apixaban will interfere with the anti Xa assay used to monitor UFH and LMWH.Performed By: #### 51639, 58544, 11567, 29427, 84404, 76791 #### [facility] [address] [facility] [place] [address], USAUNFRACTIONATED HEPARIN0.29 IU/mLLow0.30-0.70The [facility] HospitalComment on above:Result Comment: Rivaroxaban and Apixaban will interfere with the anti Xa assay used to monitor UFH and LMWH.Performed By: #### 13839, 47717, 21500, 55304, 07500, 49955 #### [facility] [address] [facility] [place] [address], USAUNFRACTIONATED HEPARIN0.33 IU/mLNormal0.30-0.70The [facility] HospitalComment on above:Result Comment: Rivaroxaban and Apixaban will interfere with the anti Xa assay used to monitor UFH and LMWH.Performed By: #### 17819 #### [facility] [address] [place] [address], [facility]*MRSA/MSSA DNA NASALon 03-29-2022*MRSA/MSSA DNA NASAL Clinical Report: (D) Specimen: NASAL SWAB Collected: 03/29/2022 12:46 Status: Final Last Updated: 03/30/2022 13:40 MSSA DNA (Final) Negative MRSA DNA (Final) NegativeNoOhioHealth Berger HospitalComment on above:Performed By: #### 85372 #### [facility] [address] [place] [address], USAAPTTon [id number] Coag (Bld) [Time]44.3 sHigh25.0-35.0 The [facility] HospitalComment on above:Order Comment: No: Do not add to previous drawResult Comment: ALL RESULTS MUST BE INTERPRETED WITH RESPECT TO BLOOD DRAWING ARTIFACT OR DILUTION ERROR OF ANTICOAGULANT AT THE TIME OF SAMPLING. THE APTT SHOULD NOT BE USED TO MONITOR UNFRACTIONATED HEPARIN THERAPY, THIS LABORATORY NO LONGER HAS AN ESTABLISHED THERAPEUTIC RANGE BASED ON THE APTT. IT IS RECOMMENDED THAT THE UFH - HEPARIN ASSAY (ANTI-XA ACTIVITY) BE USED FOR THIS PURPOSE.Performed By: #### 96808, 12935, 02674, 45326, 92120, 75123 #### [facility] [address] [place] [address], USABASIC METABOLIC PANELon 66-72-9047Exnzfky [Mass/Vol]8.5 mg/dLLow8.6-10.3The [facility] HospitalComment on above:Order Comment: No: Do not add to previous drawPerformed By: #### 19077, 58485, 05051, 73619, 89718, 59300 #### [facility] [address] [place] [address], USAChloride [Moles/Vol]106 mmol/SJcnweg55-388Wma [facility] HospitalComment on above:Order Comment: No: Do not add to previous drawPerformed By: #### 87766, 75199, 39994, 01376, 73289, 08955 #### [facility] [address] [place] [address], USACO2 [Moles/Vol]25 mmol/XJefphw05-45Kqv [facility] HospitalComment on above:Order Comment: No: Do not add to previous draw Performed By: #### 74391, 41785, 80408, 94797, 89907, 20008 #### [facility] [address] [place] [address], USACreatinine [Mass/Vol]0.88 mg/dLNormal0.70-1.30The [facility] HospitalComment on above:Order Comment: No: Do not add to previous drawPerformed By: #### 72883, 25758, 80639, 26941, 10520, 47514 #### [facility] [address] [place] [address], USAGFR/1.73 sq M.predicted among non-blacks MDRD (S/P/Bld) [Vol rate/Area]mL/min/{1.73_m2}Normal>60The [facility] Comment on above:Order Comment: No: Do not add to previous drawResult Comment: [facility]'s estimated glomerular filtration rate (eGFR) will no [...] not disproportionately affect any one group of individuals.Performed By: #### 49878, 56249, 88514, 96182, 22028, 94820 #### [facility] [address] [place] [address], USAGlucose [Mass/Vol]219 mg/dPXoph48-986Xok [facility] HospitalComment on above:Order Comment: No: Do not add to previous drawPerformed By: #### 66987, 14024, 89138, 89808, 77773, 77858 #### [facility] [address] [place] [address], USAPotassium [Moles/Vol]4.0 mmol/LNormal3.5-5.1The [facility] HospitalComment on above:Order Comment: No: Do not add to previous drawPerformed By: #### 01501, 48342, 48166, 20394, 45296, 31529 #### [facility] [address] [place] [address], USASodium [Moles/Vol]138 mmol/UOcilry297-714Jgi [facility] HospitalComment on above:Order Comment: No: Do not add to previous drawPerformed By: #### 76725, 91256, 71890, 35100, 90907, 03574 #### [facility] [address] [place] [address], USAUrea nitrogen [Mass/Vol]20 mg/dLNormal7-25The [facility] HospitalComment on above:Order Comment: No: Do not add to previous drawPerformed By: #### 08196, 63275, 20963, 99318, 82735, 13386 #### [facility] [address] [place] [address], USACBC COMPLETE BLOOD COUNTon 30-65-9759Uxdkxegpqdb distribution width (RBC) [Ratio]12.5 %Mwswbs92.5-15.0The [facility] HospitalComment on above:Order Comment: No: Do not add to previous draw Performed By: #### 53698, 97683, 90066, 59791, 28771, 82594 #### [facility] [address] [place] [address], USAHematocrit (Bld) [Volume fraction]43.3 %Tzusmz71.0-50.0The [facility] HospitalComment on above:Order Comment: No: Do not add to previous drawPerformed By: #### 59891, 34452, 33340, 18248, 10553, 68158 #### [facility] [address] [place] [address], USAHemoglobin (Bld) [Mass/Vol]14.7 g/eRHzfefx47.0-17.0The [facility] HospitalComment on above:Order Comment: No: Do not add to previous drawPerformed By: #### 57688, 58474, 01236, 75010, 83351, 79444 #### [facility] [address] [place] [address], [facility] (RBC) [Entitic mass]29.2 juCbhlyx67.0-33.0The [facility] HospitalComment on above:Order Comment: No: Do not add to previous drawPerformed By: #### 47031, 75655, 77145, 20300, 27676, 60130 #### [facility] [address] [place] [address], [facility] [place] ([place] [Mass/Vol]33.9 [id number] [facility] HospitalComment on above:Order Comment: No: Do not add to previous drawPerformed By: #### [id number], 28720, 82418, 93894, [id number], [id number] #### [facility] [address] [place], [place] [address], [facility] [place] (RBC) [Entitic vol]85.9 kWZuhpqh43.0-98.0The [facility] North HospitalComment on above:Order Comment: No: Do not add to previous drawPerformed By: #### 24101, 81286, 66044, 30235, 82321, 73327 #### [facility] [address] [place] [address], USANucleated RBC/100 WBC (Bld) [Ratio]0 %Normal0-0The [facility] North HospitalComment on above:Order Comment: No: Do not add to previous drawPerformed By: #### 56262, 78016, 18689, 81084, 19229, 86448 #### [facility] [address] [place] [address], USAPLAT EQT177 10*3/lXKpgsta648-869Csk [facility] HospitalComment on above:Order Comment: No: Do not add to previous draw Performed By: #### 45669, 54394, 13630, 13002, 69457, 18681 #### [facility] [address] [place] [address], USARBC (Bld) [#/Vol]5.04 10*6/uLNormal4.20-5.70The [facility] North HospitalComment on above:Order Comment: No: Do not add to previous drawPerformed By: #### 29174, 96273, 22885, 18690, 14017, 04480 #### [facility] [address] [facility] [place] [address], USAWBC (Bld) [#/Vol]12.17 10*3/uLHigh4.00-10.60The [facility] North HospitalComment on above:Order Comment: No: Do not add to previous drawPerformed By: #### 41955, 81238, 82644, 48468, 89478, 32258 #### [facility] [address] [facility] [place] [address], USACardiovascular Lab Reporton [id number] Lab ReportUnTriHealth Patient Name: Omid Nix [facility] MR #: [id number] Physician: Fadi Courtney Department of Janine Ching Medicine Service Date: 03/28/2022 Division of Birthdate: 1975 Cardiology Room #: 3AB [id number] Adult Cardiovascular Services [facility] [address] [place], [place] [address] Cardiovascular Laboratory Report INDICATION: The patient is a 46-year-old man with no known prior medical history, who presented with typical anginal pain and elevated cardiac enzymes consistent with rsh-MI-jvfoxbj elevation myocardial infarction. He was transferred from the [facility] to our center for further management. He was found to be significantly hypertensive and very elevated blood sugar suggesting uncontrolled systemic hypertension and diabetes. He was referred for cardiac catheterization. PROCEDURE: Bilateral selective coronary angiography from the right radial access. METHODS: Procedure was explained to the patient with risks and benefits, he signed informed consent. He was brought to medical laboratory specialist in a fasting state. The right wrist area was prepped and draped in usual fashion. Micropuncture technique was used for access in the right radial artery. A 6-Estonian x 11 cm hydrophilic sheath was advanced, verapamil was given through the sheath and heparin was administered intravenously. Bilateral selective coronary angiography was then performed using 6-Estonian JL3.5 and JR5 diagnostic catheters. Catheters were [...] the diagnostic procedure. Electronically Signed by: Fadi Ching M.D. 03/29/2022 10:06 P Fadi Ching M.D. Date Dict: 03/28/2022/03:30 P/Fadi Ching M.D. Date Trans: 03/29/2022 08:01 A/reg DN_JN:[id number] cc: Nohemi Agarwal M.D. [address] [facility] [address]DihsobXiuElyria Memorial HospitalHEMOGLOBIN A1Con 57-13-5116Uqtorvl [Moles/Vol]214 mmol/LNormalThe [facility] North HospitalComment on above:Order Comment: No: Do not add to previous drawPerformed By: #### 20173, 76229, 16040, 36246, 75810, 98038 #### [facility] [address] [place] [address], MWCZqU6o (Bld) [Mass fraction]9.1 %High4.0-6.0The [facility] HospitalComment on above:Order Comment: No: Do not add to previous drawPerformed By: #### 07188, 01682, 50614, 01684, 89103, 50458 #### [facility] [address] [place] [address], USALIPID PROFILEon 67-69-7391Kljmcaclwps [Mass/Vol]132 mg/dL Yqefok371-251Qjv [facility] HospitalComment on above:Order Comment: No: Do not add to previous drawResult Comment: CHOLESTEROL REFERENCE RANGE: 20 YEARS AND OLDER CARDIOVASCULAR RISK Less than 200 mg/dl Low Risk 200 to 239 mg/dl Borderline Risk 240 mg/dl and greater High RiskPerformed By: #### 69471, 96643, 65813, 60886, 74080, 69920 #### [facility] [address] [place] [address], USACholesterol in HDL [Mass/Vol]20 mg/xKElo34-43Ick [facility] HospitalComment on above:Order Comment: No: Do not add to previous drawResult Comment: Slight variation in normal range could be due to gender and/or age. HDL CHOLESTEROL REFERENCE RANGE: 20 years and older Cardiovascular Risk > or =60 mg/dL Desirable 40 TO 59 mg/dL Low Risk <40 mg/dL High RiskPerformed By: #### 15403, 09075, 01389, 56262, 77160, 58468 #### [facility] [address] [place] [address], USACholesterol in LDL [Mass/Vol]47 mg/dLNormal0-130The [facility] HospitalComment on above:Order Comment: No: Do not add to previous drawResult Comment: LDL IS A CALCULATION LDL IS ONLY VALID IF THE TRIG IS LESS THAN 400.Performed By: #### 84350, 87647, 72215, 36805, 05659, 88880 #### [facility] [address] [place] [address], USACholesterol.total/Cholesterol in HDL [Mass ratio]6.6 {ratio}High.0-4.5The [facility] HospitalComment on above:Order Comment: No: Do not add to previous drawPerformed By: #### 81334, 47049, 14063, 71934, 61562, 21653 #### [facility] [address] [place] [address], USANON-HDL JLNYEJTMMUN811 mg/dLNormalThe [facility] HospitalComment on above:Order Comment: No: Do not add to previous draw Performed By: #### 70746, 70169, 72940, 10331, 94095, 88063 #### [facility] [address] [place] [address], USATriglyceride [Mass/Vol]325 mg/kZVscz88-079Swa [facility] HospitalComment on above:Order Comment: No: Do not add to previous drawResult Comment: TRIGLYCERIDE REFERENCE RANGE: 20 YEARS AND OLDER CARDIOVASCULAR RISK LESS THAN 150 mg/dl LOW RISK 150 TO 199 mg/dl BORDERLINE RISK 200 mg/dl AND GREATER HIGH RISKPerformed By: #### 33134, 78766, 09186, 56600, 14714, 02703 #### [facility] [address] [place] [address], USAVLDL CHOL65 mg/dLHigh0-40The [facility] HospitalComment on above:Order Comment: No: Do not add to previous drawPerformed By: #### 23547, 11259, 13191, 61130, 12166, 82576 #### [facility] [address] [place] [address], USALIVER BATTERYon 23-79-5115Qblyjum [Mass/Vol]3.5 g/dLNormal 3.5-5.7The [facility] HospitalComment on above:Order Comment: No: Do not add to previous drawPerformed By: #### 26976, 39791, 98304, 90923, 08490, 61129 #### [facility] [address] [place] [address], USAALKALINE QANNTZ22 IU/LLfjiuk11-976Hqx [facility] HospitalComment on above:Order Comment: No: Do not add to previous draw Performed By: #### 97601, 47281, 11340, 66324, 15484, 24428 #### [facility] [address] [place] [address], USAALT [Catalytic activity/Vol]14 U/LNormal7-52The [facility] HospitalComment on above:Order Comment: No: Do not add to previous drawPerformed By: #### 84783, 73669, 01256, 22246, 40120, 83644 #### [facility] [address] [place] [address], USAAST [Catalytic activity/Vol]9 U/WNes82-86Jqw [facility] HospitalComment on above:Order Comment: No: Do not add to previous drawPerformed By: #### 29992, 93415, 11024, 50007, 29763, 99852 #### [facility] [address] [place] [address], USABilirubin [Mass/Vol]1.2 mg/dLHigh0.3-1.0The [facility] HospitalComment on above:Order Comment: No: Do not add to previous drawPerformed By: #### 49606, 02047, 09906, 13909, 51398, 86969 #### [facility] [address] [place] [address], USABilirubin.direct [Mass/Vol]0.2 mg/dLNormal0.0-0.2The [facility] HospitalComment on above:Order Comment: No: Do not add to previous drawPerformed By: #### 72963, 77470, 78444, 92292, 73929, 92607 #### [facility] [address] [place] [address], USAProtein [Mass/Vol]5.8 g/dLLow6.0-8.3The [facility] HospitalComment on above:Order Comment: No: Do not add to previous drawPerformed By: #### 85694, 51185, 17160, 04049, 17065, 24462 #### [facility] [address] [place] [address], USAMAGNESIUM BLOODon 76-33-2959Tfqvjdfad [Mass/Vol]2.0 mg/dL Normal1.9-2.7The [facility] HospitalComment on above:Order Comment: No: Do not add to previous drawPerformed By: #### 11705, 46735, 97052, 72158, 31836, 02464 #### [facility] [address] [place] [address], USAPHOSPHORUS BLOODon 13-42-2575Aewrhdwno [Mass/Vol]3.3 mg/dL Normal2.5-5.0The [facility] HospitalComment on above:Order Comment: No: Do not add to previous drawPerformed By: #### 84946, 00391, 40562, 43488, 47432, 35005 #### [facility] [address] [place] [address], USAPOC GLUCOSE LABon 87-18-5682Npsxlww [Mass/Vol]207 mg/dLHigh 70-100The [facility] HospitalComment on above:Performed By: #### 91306, 39599, 37009, 08791, 13358, 57815 #### [facility] [address] [place] [address], USAGlucose [Mass/Vol]213 mg/aTPqjk82-982Ttd [facility] HospitalComment on above:Performed By: #### 17967 #### [facility] [address] [place] [address], USAGlucose [Mass/Vol]275 mg/rIVtjs89-917Mmb [facility] HospitalComment on above:Performed By: #### 57445 #### [facility] [address] [place] [address], USAGlucose [Mass/Vol]272 mg/gWTria06-865Lsm [facility] HospitalComment on above:Performed By: #### 85672 #### [facility] [address] [place] [address], USAGlucose [Mass/Vol]294 mg/oJFjor73-449Rnk [facility] HospitalComment on above:Performed By: #### 57127, 87772, 03933, 64140, 52860, 62319 #### [address] [address], USAPORTABLE CHEST 1 VIEWon 49-34-5642YXJHEZOP CHEST 1 VIEW [facility] Department of Radiology [address] [place] [id number] Patient Name: OMID NIX : 1975 Sex: M Age: Race: White Pt. Location: [address] [place] [address] Patient Status: I Ordered Date: 03/29/2022 10:10:00 AM Completed Date: 03/29/2022 01:05 PM Requesting Provider: RON REZA Attending Provider: KIRK RIGGS Report Copy To: Signs & Symptoms: Pre-Op Evaluation History: Comments: Atelectasis Exam: PORTABLE CHEST 1 VIEW PORTABLE CHEST 1 VIEW 03/29/2022 1:05 PM CLINICAL INDICATIONS: Pre-Op Evaluation TECHNOLOGIST COMMENTS: patient states pre op for open heart surgery QUESTION FOR THE RADIOLOGIST: Atelectasis PROTOCOL: AP(PA) view was obtained. COMPARISON: None Impression: 1. The lungs are clear. There are no effusions or pneumothorax. The mediastinal structures are unremarkable. Electronically signed: Chuck Covington. Transcribed by: [email or web address], User Resident: Electronically Signed by: CHUCK COVINGTON @ 03/29/2022 01:12 PMNormalThe [facility] North HospitalComment on above:Order Comment: Atelectasis PROTHROMBIN TIMEon [id number] Coag (PPP) [Relative time]1.10 {INR}Normal 0.91-1.16The [facility] North HospitalComment on above:Order Comment: No: Do not add to previous drawResult Comment: ACCCP RECOMMENDED INR FOR WARFARIN THERAPY ------- CONDITION INR PROPHYLAXIS OF VENOUS THROMBOSIS 2-3 (HIGH-RISK SURGERY) TREATMENT OF VENOUS THROMBOSIS 2-3 TREATMENT OF PULMONARY EMBOLISM 2-3 PREVENTION OF SYSTEMIC EMBOLISM: 2-3 ACUTE MYOCARDIAL INFARCTION TISSUE HEART VALVES VALVULAR HEART DISEASE ATRIAL FIBRILLATION RECURRENT SYSTEMIC EMBOLISM MECHANICAL HEART VALVE 2.5-3.5 FROM: ORAL ANTICOAGULANTS. MECHANISM OF ACTION, CLINICAL EFFECTIVENESS, AND OPTIMAL THERAPEUTIC RANGE. CHEST 1995;108:231S-246S.Performed By: #### 15161, 63546, 39030, 37751, 87464, 04780 #### [facility] [address] [place] [address], USAPT Coag (PPP) [Time]14.2 wQiywsn58.3-14.8The [facility] HospitalComment on above:Order Comment: No: Do not add to previous drawResult Comment: ALL RESULTS MUST BE INTERPRETED WITH RESPECT TO BLOOD DRAWING ARTIFACT OR DILUTION ERROR OF ANTICOAGULANT AT THE TIME OF SAMPLING.Performed By: #### 91469, 99525, 06467, 93042, 24348, 54584 #### [facility] [address] [place] [address], USATROPONIN-Ion 85-87-8314Ipwwotyc I.cardiac [Mass/Vol]0.15 ng/mLCritically high0.00-0.04The [facility] HospitalComment on above:Result Comment: M-PREVIOUS CRITICAL RESULT REFERENCE RANGES: 0.00 - 0.04 ng/ml NORMAL 0.05 - 0.50 ng/ml INDETERMINATE > 0.50 ng/ml CONSISTENT WITH AN M.I.Performed By: #### 00973, 11886, 40914, 86543, 84717, 58386 #### [facility] [address] [facility] [place] [address], EYTGYH8iw 24-99-8489NZB 3RD GENERATION0.88 uIU/mLNormal 0.34-5.60The [facility] HospitalComment on above:Order Comment: No: Do not add to previous drawPerformed By: #### 06322, 59166, 96294, 44620, 74712, 58558 #### [facility] [address] [facility] [place] [address], USAUFH HEPARIN ASSAYon 30-85-7717WOYVNPJKQULOPE HEPARIN0.22 IU/mLLow0.30-0.70The [facility] HospitalComment on above:Result Comment: Rivaroxaban and Apixaban will interfere with the anti Xa assay used to monitor UFH and LMWH.Performed By: #### 87109, 59282, 80521, 94008, 00417, 36373 #### [facility] [address] [facility] [place] [address], USAUNFRACTIONATED HEPARIN0.15 IU/mLCritically low0.30-0.70The [facility] HospitalComment on above:Result Comment: Result checked and called. Accurately read back by Josiane Sosa @8159 Rivaroxaban and Apixaban will interfere with the anti Xa assay used to monitor UFH and LMWH.Performed By: #### 66432, 55735, 65524, 45354, 46034, 63065 #### [facility] [address] [facility] [place] [address], USAUNFRACTIONATED HEPARIN0.14 IU/mLCritically low0.30-0.70The [facility] HospitalComment on above:Order Comment: No: Do not add to previous drawResult Comment: Result checked and called. Accurately read back by Nurse [id number] @0711 Rivaroxaban and Apixaban will interfere with the anti Xa assay used to monitor UFH and LMWH.Performed By: #### 35807, 98000, 54642, 07179, 59177, 19677 #### [facility] [address] [place] [address], USAUNFRACTIONATED HEPARIN0.11 IU/mLCritically low0.30-0.70The [facility] HospitalComment on above:Result Comment: Result checked and called. Accurately read back by Shona Chavez at 0015 Rivaroxaban and Apixaban will interfere with the anti Xa assay used to monitor UFH and LMWH.Performed By: #### 32312, 13885, 37372, 83239, 88536, 26499 #### [facility] [address] [place] [address], USAURINALYSIS REFLEXon 86-05-6610Yctttrxjfc (U)CLEARNormal CLEARThe [facility] HospitalComment on above:Order Comment: No: Do not add to previous drawCriteria for reflexing a culture was not met. Please call the lab [id number] within 24 hours of collection time if culture is needed Performed By: #### 47672 #### [facility] [address] [place] [address], USABilirubin Ql (U)NegativeNormalNEGATIVEThe [facility] HospitalComment on above:Order Comment: No: Do not add to previous drawCriteria for reflexing a culture was not met. Please call the lab [id number] within 24 hours of collection time if culture is neededPerformed By: #### 23225 #### [facility] [address] [place] [address], USAColor (U)YELLOWNormalYELLOWThe [facility] HospitalComment on above:Order Comment: No: Do not add to previous drawCriteria for reflexing a culture was not met. Please call the lab [phone] within 24 hours of collection time if culture is neededPerformed By: #### 49483 #### [facility] [address] [place] [address], USAGlucose Ql (U)>=1000AbnormalNEGATIVEThe [facility] HospitalComment on above:Order Comment: No: Do not add to previous drawCriteria for reflexing a culture was not met. Please call the lab [id number] within 24 hours of collection time if culture is neededPerformed By: #### 39462 #### [facility] [address] [place] [address], USAHemoglobin Ql (U)NegativeNormalNEGATIVEThe [facility] HospitalComment on above:Order Comment: No: Do not add to previous drawCriteria for reflexing a culture was not met. Please call the lab [id number] within 24 hours of collection time if culture is neededPerformed By: #### 77620 #### [facility] [address] [place] [address], USAKETONENegativeNormalNEGATIVEThe [facility] HospitalComment on above:Order Comment: No: Do not add to previous drawCriteria for reflexing a culture was not met. Please call the lab [id number] within 24 hours of collection time if culture is neededPerformed By: #### 68024 #### [facility] [address] [place] [address], USALEUK ESTERNegativeNormalNEGATIVEThe [facility] HospitalComment on above:Order Comment: No: Do not add to previous drawCriteria for reflexing a culture was not met. Please call the lab [id number] within 24 hours of collection time if culture is neededPerformed By: #### 23981 #### [facility] [address] [place] [id number], USAMICRO NOT DONENormalThe [facility] Comment on above:Order Comment: No: Do not add to previous drawCriteria for reflexing a culture was not met. Please call the lab [id number] within 24 hours of collection time if culture is neededResult Comment: Microscopics not performed on urines with negative chemical reactions unless requested in original orderPerformed By: #### 02720 #### [facility] [address] [facility] [place] [address], USANitrite Ql (U)NegativeNormalNEGATIVEThe [facility] HospitalComment on above:Order Comment: No: Do not add to previous drawCriteria for reflexing a culture was not met. Please call the lab [id number] within 24 hours of collection time if culture is neededPerformed By: #### 94393 #### [facility] [address] [facility] [place] [id number], USApH (U)6.0 [pH]Normal5.0-8.0The [facility] HospitalComment on above:Order Comment: No: Do not add to previous drawCriteria for reflexing a culture was not met. Please call the lab [phone] within 24 hours of collection time if culture is neededPerformed By: #### 88509 #### [facility] [address] [facility] [place] [address], USAProtein Ql (U)NegativeNormalNEGATIVEThe [facility] HospitalComment on above:Order Comment: No: Do not add to previous drawCriteria for reflexing a culture was not met. Please call the lab [phone] within 24 hours of collection time if culture is neededPerformed By: #### 22943 #### [facility] [address] [facility] [place] [address], USASPEC GRAV1.964Vpqr9.015-1.020The [facility] HospitalComment on above:Order Comment: No: Do not add to previous drawCriteria for reflexing a culture was not met. Please call the lab [id number] within 24 hours of collection time if culture is neededPerformed By: #### 18777 #### [facility] [address] [place] [address], USABASIC METABOLIC PANELon 32-39-7641Kibssxx [Mass/Vol]8.5 mg/dLLow8.6-10.3The [facility] HospitalComment on above:Order Comment: No: Do not add to previous drawPerformed By: #### 71451, 57728, 63582, 57680, 81742, 96867 #### [facility] [address] [place] [address], USAChloride [Moles/Vol]103 mmol/SPmqaqs42-484Yid [facility] HospitalComment on above:Order Comment: No: Do not add to previous drawPerformed By: #### 14800, 04802, 44667, 85366, 52442, 02011 #### [facility] [address] [place] [address], USACO2 [Moles/Vol]23 mmol/YNfhbnx33-75Mbr [facility] HospitalComment on above:Order Comment: No: Do not add to previous draw Performed By: #### 51305, 09360, 75748, 41234, 31368, 29669 #### [facility] [address] [place] [address], USACreatinine [Mass/Vol]0.80 mg/dLNormal0.70-1.30The [facility] HospitalComment on above:Order Comment: No: Do not add to previous drawPerformed By: #### 47709, 21657, 59972, 13504, 08307, 82758 #### [facility] [address] [place] [address], USAGFR/1.73 sq M.predicted among non-blacks MDRD (S/P/Bld) [Vol rate/Area]mL/min/{1.73_m2}Normal>60The [facility] Comment on above:Order Comment: No: Do not add to previous drawResult Comment: The [facility]'s estimated glomerular filtration rate (eGFR) will no [...] not disproportionately affect any one group of individuals.Performed By: #### 46174, 41329, 28597, 21529, 03093, 47896 #### [facility] [address] [place] [address], USAGlucose [Mass/Vol]250 mg/sVZclt49-517Zkx [facility] HospitalComment on above:Order Comment: No: Do not add to previous drawPerformed By: #### 10630, 98019, 91625, 15199, 62617, 33786 #### [facility] [address] [place] [address], USAPotassium [Moles/Vol]4.0 mmol/LNormal3.5-5.1The [facility] HospitalComment on above:Order Comment: No: Do not add to previous drawPerformed By: #### 05021, 62775, 75269, 39519, 35315, 10777 #### [facility] [address] [place] [address], USASodium [Moles/Vol]133 mmol/SCau480-383Aad [facility] HospitalComment on above:Order Comment: No: Do not add to previous drawPerformed By: #### 15053, 75213, 67976, 81668, 36653, 06546 #### [facility] [address] [place] [address], USAUrea nitrogen [Mass/Vol]18 mg/dLNormal7-25The [facility] HospitalComment on above:Order Comment: No: Do not add to previous drawPerformed By: #### 21869, 20454, 08633, 80788, 21386, 04694 #### [facility] [place] [address], USACARDIAC ROSETTA 3-6on 23-16-8030OV [Catalytic activity/Vol]134 U/BYisuwj13-522EcwSelect Medical [facility] Clinic Rehabilitation Hospital, AvonComment on above:Performed By: #### HSTROPN, CMADM, LIPA, CMP #### [facility] [address] [place] [address] Dr. Amaya Pratt.MB [Mass/Vol]2.05 ng/mLNormal<=3.60[facility] [place] Comment on above:Performed By: #### HSTROPN, CMADM, LIPA, CMP #### [facility] [address] [place] [address] Dr. Amaya Munson187.0 pg/mLCritically high4.0-76.1[facility] [place] Comment on above:Result Comment: CUT-OFF POINTS HAVE BEEN ESTABLISHED BASED ON THE FOURTH UNIVERSAL DEFINITIONS OF MYOCARDIAL INFARCTION. THE UPPER REFERENCE LIMIT (URL) OF TROPONIN, DEFINED THE 99TH PERCENTILE OF cTnI DISTRIBUTION IN A REFERENCE POPULATION, HAS BEEN CONFIRMED THE DECISION THRESHOLD FOR DC DIAGNOSIS.Performed By: #### HSTROPN, CMADM, LIPA, CMP #### [facility] [address] [place] [address] Dr. Amaya Pratt [Catalytic activity/Vol]156 U/USxfxsg27-189Ugr [facility] CenterComment on above:Performed By: #### HSTROPN, CMADM, LIPA, CMP #### [facility] Laboratory [address] [place] [address] Dr. Amaya Pratt.MB [Mass/Vol]2.63 ng/mLNormal<=3.60[facility] [place] Comment on above:Performed By: #### HSTROPN, CMADM, LIPA, CMP #### [facility] Laboratory [address] [place] [address] Dr. Amaya Munson181.9 pg/mLCritically high4.0-76.1[facility] [place] Comment on above:Result Comment: CUT-OFF POINTS HAVE BEEN ESTABLISHED BASED ON THE FOURTH UNIVERSAL DEFINITIONS OF MYOCARDIAL INFARCTION. THE UPPER REFERENCE LIMIT (URL) OF TROPONIN, DEFINED THE 99TH PERCENTILE OF cTnI DISTRIBUTION IN A REFERENCE POPULATION, HAS BEEN CONFIRMED THE DECISION THRESHOLD FOR DC DIAGNOSIS.Performed By: #### HSTROPN, CMADM, LIPA, CMP #### [facility] Laboratory [address] [place] [address] Dr. Amaya Bennett ROSETTA ADMITon [id number] [Catalytic activity/Vol]192 U/L Jmuolb60-741Loe [facility] CenterComment on above:Performed By: #### BMP, CMADM #### [facility] Laboratory [address] [place] [address] Dr. Amaya Pratt.MB [Mass/Vol]2.80 ng/mLNormal<=3.60[facility] [place] Comment on above:Performed By: #### BMP, CMADM #### [facility] Laboratory [address] [place] [address] Dr. Amaya SchultzHSTROP229.5 pg/mLCritically high4.0-76.1[facility] [place] Comment on above:Result Comment: CUT-OFF POINTS HAVE BEEN ESTABLISHED BASED ON THE FOURTH UNIVERSAL DEFINITIONS OF MYOCARDIAL INFARCTION. THE UPPER REFERENCE LIMIT (URL) OF TROPONIN, DEFINED THE 99TH PERCENTILE OF cTnI DISTRIBUTION IN A REFERENCE POPULATION, HAS BEEN CONFIRMED THE DECISION THRESHOLD FOR DC DIAGNOSIS.Performed By: #### BMP, CMADM #### [facility] Laboratory [address] [place] [address] Dr. Amaya ArellanoO50 ng/oVLvqfrb42-98VtxSelect Medical [facility] Clinic [facility] Hospital, [place]onComment on above: Performed By: #### BMP, CMADM #### [facility] Laboratory [address] [place] [address] Dr. Amaya Guerrero AUTO DIFFon [id number] #0.1 103/ulNormal0.0-0.1[facility], [place]onComment on above:Performed By: #### HSTROPN, CMADM, LIPA, CMP #### [facility] Laboratory [address] [place] [address] Dr. Amaya SchultzBasophils/100 WBC (Bld)0.6 %Normal0.2-2.0The [facility] Comment on above:Performed By: #### HSTROPN, CMADM, LIPA, CMP #### [facility] Laboratory [address] [place] [address] Dr. Amaya KendrickO #0.4 103/ulNormal0.0-0.7The [facility] CenterComment on above: Performed By: #### HSTROPN, CMADM, LIPA, CMP #### [facility] Laboratory [address] [place] [address] Dr. Amaya Kendrickosinophils/100 WBC (Bld)3.2 %Normal0.9-7.0The [facility] Comment on above:Performed By: #### HSTROPN, CMADM, LIPA, CMP #### [facility] Laboratory [address] [place] [address] Dr. Amaya Kendrickrythrocyte distribution width (RBC) [Ratio]12.4 %Vifhol07.0-15.0 The [facility] CenterComment on above:Performed By: #### HSTROPN, CMADM, LIPA, CMP #### [facility] Laboratory [address] [place] [address] Dr. Amaya SchultzHematocrit (Bld) [Volume fraction]45.1 %Yirjgg85.0-54.0The [facility] CenterComment on above:Performed By: #### HSTROPN, CMADM, LIPA, CMP #### [facility] Laboratory [address] [place] [address] Dr. Amaya SchultzHemoglobin (Bld) [Mass/Vol]15.6 g/wWLugyyj68.0-18.0The [facility] CenterComment on above:Performed By: #### HSTROPN, CMADM, LIPA, CMP #### [facility] Laboratory [address] [place] [address] Dr. Amaya SchultzIG #0.10 10e3/ulCritically high0.00-0.03The [facility] Comment on above:Performed By: #### HSTROPN, CMADM, LIPA, CMP #### [facility] Laboratory [address] [address] [address] Amaya Kaur %0.8 %Critically high0.0-0.5The [facility] CenterComment on above:Performed By: #### HSTROPN, CMADM, LIPA, CMP #### [facility] Laboratory [address] [address] [address] Amaya Vincent #3.2 103/ulNormal1.2-3.8The [facility] CenterComment on above:Performed By: #### HSTROPN, CMADM, LIPA, CMP #### [facility] Laboratory [address] [place] [address] Dr. Amaya Edwardshocytes/100 WBC (Bld)26.2 %Fsoevf27.5-60.0The [facility] CenterComment on above:Performed By: #### HSTROPN, CMADM, LIPA, CMP #### [facility] Laboratory [address] [place] [address] Dr. Amaya FofanaUAL DIFF REQNONormalThe [facility] CenterComment on above: Performed By: #### HSTROPN, CMADM, LIPA, CMP #### [facility] Laboratory [address] [place] [address] Dr. Amaya Connolly (RBC) [Entitic mass]29.5 sjFuzewk14.9-34.0The [facility] CenterComment on above:Performed By: #### HSTROPN, CMADM, LIPA, CMP #### [facility] Laboratory [address] [place] [address] Dr. Amaya Connolly (RBC) [Mass/Vol]34.6 g/vUWobpzl03.9-35.2The [facility] CenterComment on above:Performed By: #### HSTROPN, CMADM, LIPA, CMP #### [facility] Laboratory [address] [place] [address] Dr. Amaya Connolly (RBC) [Entitic vol]85.3 nYEcdkrb42.0-94.0The [facility] CenterComment on above:Performed By: #### HSTROPN, CMADM, LIPA, CMP #### [facility] Laboratory [address] [place] [address] Dr. Amaya Joyner #0.8 103/ulNormal0.3-0.8The [facility] CenterComment on above:Performed By: #### HSTROPN, CMADM, LIPA, CMP #### [facility] Laboratory [address] [place] [address] Dr. Amaya Ashleyocytes/100 WBC (Bld)6.1 %Normal1.7-12.0The [facility] Comment on above:Performed By: #### HSTROPN, CMADM, LIPA, CMP #### [facility] Laboratory [address] [place] [address] Dr. Amaya Taylor #7.8 103/ulCritically high1.4-6.5The [facility] Comment on above:Performed By: #### HSTROPN, CMADM, LIPA, CMP #### [facility] Laboratory [address] [place] [address] Dr. Amaya Cervantesutrophils/100 WBC (Bld)63.1 %Ljwdua58.0-75.0The [facility] CenterComment on above:Performed By: #### HSTROPN, CMADM, LIPA, CMP #### [facility] Laboratory [address] [place] [address] Dr. Amaya SchultzPlatelet mean volume (Bld) [Entitic vol]9.4 fLCritically low 9.5-13.5The [facility] CenterComment on above:Performed By: #### HSTROPN, CMADM, LIPA, CMP #### [facility] Laboratory [address] [place] [address] Dr. Amaya SchultzPLT264 103/odLpzjmw128-071Oqc [facility] CenterComment on above: Performed By: #### HSTROPN, CMADM, LIPA, CMP #### [facility] Laboratory [address] [place] [address] Dr. Amaya SchultzRBC5.29 106/ulNormal4.70-6.10The [facility] CenterComment on above:Performed By: #### HSTROPN, CMADM, LIPA, CMP #### [facility] Laboratory [address], [place] [address] Dr. Amaya SchultzWBC12.4 103/ulCritically high4.0-11.0The [facility] CenterComment on above:Performed By: #### HSTROPN, CMADM, LIPA, CMP #### [facility] Laboratory [address], [place] [address] Dr. Amaya PolkC W/DIFFon 29-38-1218KGB IMM GRANS0.1 10*3/uLNormal0.0-0.2The [facility] HospitalComment on above:Performed By: #### 33264, 21579, 24184, 92696, 49033, 73565 #### [facility] [address] [facility] [place] [address], USAABS NEUTROPHILS8.1 10*3/uLHigh1.6-7.6The [facility] HospitalComment on above:Performed By: #### 78738, 83845, 02482, 71056, 65550, 18053 #### [facility] [address] [facility] [place] [address], USABasophils (Bld) [#/Vol]0.1 10*3/uLNormal0.0-0.2The [facility] HospitalComment on above:Performed By: #### 64924, 29444, 30965, 21627, 28710, 01798 #### [facility] [address] [place] [address], USABasophils/100 WBC (Bld)0.5 %Normal0.0-1.0The [facility] HospitalComment on above:Performed By: #### 00256, 69602, 56404, 16307, 52528, 60310 #### [facility] [address] [facility] [place] [address], USAEosinophils (Bld) [#/Vol]0.2 10*3/uLNormal0.0-0.5The [facility] HospitalComment on above:Performed By: #### 43255, 51718, 38449, 87214, 89380, 97598 #### [facility] [address] [facility] [place] [address], [facility]ENTEREosinophils/100 WBC (Bld)1.8 %Normal0.0-6.0The [facility] HospitalComment on above:Performed By: #### 46103, 87627, 29093, 25274, 44858, 25942 #### [facility] [address] [facility] [place] [address], USAErythrocyte distribution width (RBC) [Ratio]12.5 %Normal 11.5-15.0The [facility] HospitalComment on above:Performed By: #### 21436, 31035, 50087, 82374, 39955, 76946 #### [facility] [address] [facility] [place] [address], USAHematocrit (Bld) [Volume fraction]44.2 %Alsqtu90.0-50.0The [facility] HospitalComment on above:Performed By: #### 89274, 60662, 17877, 23754, 61416, 71052 #### [facility] [address] [facility] [place] [address], USAHemoglobin (Bld) [Mass/Vol]15.5 g/yXJnzaoc67.0-17.0The [facility] HospitalComment on above:Performed By: #### 89886, 17131, 98882, 48686, 98700, 69900 #### [facility] [address] [place] [address], USAIMMATURE GRANS1.0 %Normal0.0-1.0The [facility] HospitalComment on above:Performed By: #### 14074, 54515, 39449, 95110, 63061, 42454 #### [facility] [address] [place] [address], USALymphocytes (Bld) [#/Vol]2.5 10*3/uLNormal1.2-4.0The [facility] HospitalComment on above:Performed By: #### 27841, 51479, 54057, 39979, 44797, 31943 #### [facility] [address] [place] [address], USALymphocytes/100 WBC (Bld)21.5 %Lempjk40.0-45.0The [facility] HospitalComment on above:Performed By: #### 90582, 75310, 35582, 41848, 53064, 53394 #### [facility] [address] [place] [address], [facility]H (RBC) [Entitic mass]29.4 ydUhbuta66.0-33.0The [facility] HospitalComment on above:Performed By: #### 35423, 22447, 74297, 84311, 50234, 72317 #### [facility] [address] [place] [address], [facility] CENTERMCHC (RBC) [Mass/Vol]35.1 g/yMNmav58.0-35.0The [facility] HospitalComment on above:Performed By: #### 81308, 42340, 01672, 56802, 37790, 57793 #### [facility] [address] [place] [address], [facility]V (RBC) [Entitic vol]83.9 iKYprlka50.0-98.0The [facility] HospitalComment on above:Performed By: #### 26537, 96389, 27292, 05259, 42705, 93437 #### [facility] [address] [place] [address], USAMonocytes (Bld) [#/Vol]0.7 10*3/uLNormal0.1-1.0The [facility] HospitalComment on above:Performed By: #### 71136, 93533, 17654, 04725, 65945, 95017 #### [facility] [address] [place] [address], USAMONOS5.7 %Normal5.0-12.0The [facility] HospitalComment on above:Performed By: #### 34987, 76875, 76037, 35819, 28957, 53039 #### [facility] [address] [place] [address], USANeutrophils/100 WBC (Bld)69.5 %Uztstn39.0-72.0The [facility] HospitalComment on above:Performed By: #### 41889, 82283, 68507, 26520, 46683, 78406 #### [facility] [address] [place] [address], USANucleated RBC/100 WBC (Bld) [Ratio]0 %Normal0-0The [facility] HospitalComment on above:Performed By: #### 06821, 24437, 61238, 54071, 59955, 70731 #### [facility] [address] [facility] [place] [address], USAPLAT XRB677 10*3/bFRmqxqm656-195Hpx [facility] HospitalComment on above:Performed By: #### 23460, 33789, 93370, 84332, 16026, 80378 #### [facility] [address] [facility] [place] [address], USARBC (Bld) [#/Vol]5.27 10*6/uLNormal4.20-5.70The [facility] HospitalComment on above:Performed By: #### 97420, 90532, 01696, 31874, 90061, 19979 #### [facility] [address] [facility] [place] [address], USAWBC (Bld) [#/Vol]11.67 10*3/uLHigh4.00-10.60The [facility] HospitalComment on above:Performed By: #### 82882, 01930, 13933, 96036, 36845, 10518 #### [facility] [address] [facility] [place] [address], USACovid-19 PCR (CVDTB)on 40-55-7124DYTX-CoV-2 (COVID-19) RNA BLANCA+probe Ql (Unsp spec)Not detectedNormalNOT DETECTEDThe [facility] Comment on above:Result Comment: When diagnostic testing is negative, the [...] for this test is supported by the Street Commissioner of Health and Human Service's declaration that circumstances exist to justify the emergency use of in vitro diagnostics for the detection and/or diagnosis of the virus that causes COVID-19. This EUA will remain in effect for the duration of the COVID-19 declaration justifying emergency of IVDs, unless it is terminated or revoked by the FDA (after which the test may no longer be used).Performed By: #### HSTROPN, CMADM, LIPA, CMP #### [facility] Laboratory [address] [address] [address] Amaya SaucedoESIUM BLOODon 16-61-1885Xczvdjaqm [Mass/Vol]1.9 mg/dLNormal 1.9-2.7The [facility] HospitalComment on above:Order Comment: No: Do not add to previous drawPerformed By: #### 31455, 37820, 58676, 56535, 48347, 06919 #### [facility] [address] [facility] [place] [address], [facility] GLUCOSE LABon 27-21-1879Bjkmiqj [Mass/Vol]302 mg/dLHigh 70-100The [facility] HospitalComment on above:Performed By: #### 06613 #### [facility] [address] [facility] [place] [address], [facility] CENTERPO SARS COV2 ANTIGEN NEGATIVEon 07-66-3044CHI SARS COV2 ANTIGEN NEGNegativeNormalNEGATIVEThe [facility] HospitalComment on above:Result Comment: Negative results should be treated as presumptive and [...] antigen from SARS-CoV-2 in direct nasopharyngeal swab (INDUSTRIAL HYGIENE TECHNICIAN) specimens from individuals who are suspected of [...] Waiver, Certificate of Compliance, or Certificate of Accreditation.Performed By: #### 39118, 00524, 88160, 97267, 28917, 52630 #### [facility] [address] [facility] [place] [address], [facility] CENTERPROF CHEM 8 (BAS METB)on 93-33-2836Jwjaf gap [Moles/Vol] 11.8 mmol/LNormalThe [facility] CenterComment on above:Performed By: #### BMP, CMADM #### [facility] Laboratory [address] [place] [address] Dr. Amaya SchultzCalcium [Mass/Vol]8.5 mg/dLNormal8.5-10.1The [facility] Comment on above:Performed By: #### BMP, CMADM #### [facility] Laboratory [address] [address] [address] Amaya SchultzChloride [Moles/Vol]101 mmol/HDfxfxj64-810Pbe [facility] Comment on above:Performed By: #### BMP, CMADM #### [facility] Laboratory [address] [address] [address] Amaya SchultzCO2 [Moles/Vol]25.9 mmol/XClutdj60.0-32.0The [facility] Comment on above:Performed By: #### BMP, CMADM #### [facility] Laboratory [address] [address] [address] Amaya SchultzCreatinine [Mass/Vol]1.40 mg/dLCritically high0.70-1.30The [facility] CenterComment on above:Performed By: #### BMP, CMADM #### [facility] Laboratory [address] [address] [address] Conde ChangEGFR-AF TAJIK>60Normal>=60The [facility] CenterComment on above:Performed By: #### BMP, CMADM #### [facility] Laboratory [address] [address] [address] Amaya KendrickGFR-NON AF JUAWEJYS63 mL/min/1.72o4Apadlrpgbg low>=60The [facility] CenterComment on above:Performed By: #### BMP, CMADM #### [facility] Laboratory [address] [place] [address] Dr. Amaya SchultzGlucose [Mass/Vol]291 mg/dLCritically nhib59-257Icb [facility] CenterComment on above:Performed By: #### BMP, CMADM #### [facility] Laboratory [address] [place] [address] Dr. Amaya SchultzPotassium [Moles/Vol]3.7 mmol/LNormal3.5-5.1The [facility] Comment on above:Performed By: #### BMP, CMADM #### [facility] Laboratory [address] [address] [address] Amaya SchultzSodium [Moles/Vol]135 mmol/LCritically eju091-059Qtr [facility] Hospital at Southwoodsment on above:Performed By: #### BMP, CMADM #### [facility] Laboratory [address] [address] [address] Amaya Boss nitrogen [Mass/Vol]23.0 mg/dLCritically high7.0-18.0The [facility] CenterComment on above:Performed By: #### BMP, CMADM #### [facility] Laboratory [address] [address] [address] Amaya Boss nitrogen/Creatinine [Mass ratio]16.4 mg/mgNoSouthern [place] Medical CenterComment on above:Performed By: #### BMP, CMADM #### [facility] Laboratory [address] [place] [address] Dr. Amaya Avendaño 09-66-6181V[facility] Coag (PPP) [Relative time]1.05 {INR} NormalThe [facility] CenterComment on above:Performed By: #### HSTROPN, CMADM, LIPA, CMP #### [facility] Laboratory [address] [place] [address] Dr. Amaya Bowen GUIDELINESSEE BELOWOhioHealth Arthur G.H. Bing, MD, Cancer CenterComment on above:Result Comment: DESIRED INR: 2.0 - 3.0 CONDITIONS NOT LISTED BELOW 2.5 - 3.5 FOR PROSTHETIC HEART VALVE REPLACEMENT 2.5 - 3.5 RECURRENT THROMBOSIS Performed By: #### HSTROPN, CMADM, LIPA, CMP #### [facility] Laboratory [address] [place] [address] Dr. Amaya SchultzPT Coag (PPP) [Time]11.3 sNormal9.0-11.6The [facility] Comment on above:Performed By: #### HSTROPN, CMADM, LIPA, CMP #### [facility] Laboratory [address] [place] [address] Dr. Amaya Godwin [id number] Coag (Bld) [Time]29.7 bNaavtf43.3-36.2The [facility] CenterComment on above:Performed By: #### HSTROPN, CMADM, LIPA, CMP #### [facility] Laboratory [address], [place] [address] Dr. Amaya Clark-Ion 15-62-1913Epjvdjju I.cardiac [Mass/Vol]0.19 ng/mL Critically high0.00-0.04The [facility] HospitalComment on above: Result Comment: M-TROPONIN INITIAL CRITICAL HIGH; RESPUN AND RETESTED M-CRITICAL RESULT(S) REVIEWED, CALLED TO AND READ BACK BY [place] RN AT 1414 REFERENCE RANGES: 0.00 - 0.04 ng/ml NORMAL 0.05 - 0.50 ng/ml INDETERMINATE > 0.50 ng/ml CONSISTENT WITH AN M.I.Performed By: #### 78940, 63808, 57328, 42901, 90763, 88496 #### [facility] [address] [place] [address], [facility] MEDICAL CENTERUFH HEPARIN ASSAYon 76-53-6655BAGWSRIIHVBLKU HEPARIN0.37 IU/mLNormal0.30-0.70The [facility] HospitalComment on above: Result Comment: Rivaroxaban and Apixaban will interfere with the anti Xa assay used to monitor UFH and LMWH.Performed By: #### 62823, 86739, 49634, 19732, 11712, 60906 #### [facility] [address] [place] [address], USAXR CHEST 1 Von [id number] CHEST 1 VEXAM: XR CHEST 1 V HISTORY: CHEST PAIN, [...] Electronically authenticated by: LORI APONTE Date: 2022-03-28 01:[address] [place], [place] [address]CARDIAC ROSETTA ADMITon [id number] [Catalytic activity/Vol]145 U/CQhjmos19-023Lgg [facility] CenterComment on above:Performed By: #### HSTROPN, CMADM, LIPA, CMP #### [facility] Laboratory [address] [place] [address] Dr. Amaya Pratt.MB [Mass/Vol]2.00 ng/mLNormal<=3.60The [facility] Comment on above:Performed By: #### HSTROPN, CMADM, LIPA, CMP #### [facility] Laboratory [address] [place] [address] Dr. Amaya MuñozTROP27.1 pg/mLNormal4.0-76.1The [facility] CenterComment on above:Result Comment: CUT-OFF POINTS HAVE BEEN ESTABLISHED BASED ON THE FOURTH UNIVERSAL DEFINITIONS OF MYOCARDIAL INFARCTION. THE UPPER REFERENCE LIMIT (URL) OF TROPONIN, DEFINED THE 99TH PERCENTILE OF cTnI DISTRIBUTION IN A REFERENCE POPULATION, HAS BEEN CONFIRMED THE DECISION THRESHOLD FOR DC DIAGNOSIS.Performed By: #### HSTROPN, CMADM, LIPA, CMP #### [facility] [address] [place] [address] Dr. Amaya Johnson66 ng/qUQiisaa14-28Bct [facility] CenterComment on above: Performed By: #### HSTROPN, CMADM, LIPA, CMP #### [facility] Laboratory [address] [place] [address] Dr. Amaya Guerrero AUTO DIFFon [id number] #0.1 103/ulNormal0.0-0.1The [facility] CenterComment on above:Performed By: #### CBC #### [facility] Laboratory [address] [place] [address] Dr. Amaya SchultzBasophils/100 WBC (Bld)0.4 %Normal0.2-2.0[facility] Comment on above:Performed By: #### CBC #### [facility] Laboratory [address] [place] [address] Dr. Amaya Ibarra #0.1 103/ulNormal0.0-0.7The [facility] CenterComment on above: Performed By: #### CBC #### [facility] Laboratory [address] [address] [address] Amaya Kendrickosinophils/100 WBC (Bld)0.6 %Critically low0.9-7.0The [facility] CenterComment on above:Performed By: #### CBC #### [facility] Laboratory [address] [place] [address] Dr. Amaya Kendrickrythrocyte distribution width (RBC) [Ratio]11.9 %Rcwqlw02.0-15.0 The [facility] CenterComment on above:Performed By: #### CBC #### [facility] Laboratory [address] [place] [address] Dr. Amaya SchultzHematocrit (Bld) [Volume fraction]50.1 %Wtwpum37.0-54.0The [facility] CenterComment on above:Performed By: #### CBC #### [facility] Laboratory [address] [place] [address] Dr. Amaya SchultzHemoglobin (Bld) [Mass/Vol]18.0 g/vCXmjvhc10.0-18.0The [facility] CenterComment on above:Performed By: #### CBC #### [facility] Laboratory [address] [place] [address] Dr. Amaya Kaur #0.15 10e3/ulCritically high0.00-0.03The [facility] Comment on above:Performed By: #### CBC #### [facility] Laboratory [address] [place] [address] Dr. Amaya Kaur %0.8 %Critically high0.0-0.5The [facility] Medical CenterComment on above:Performed By: #### CBC #### [facility] [address] [place] [address] Dr. Amaya EdwardsH #2.0 103/ulNormal1.2-3.8The [facility] Medical CenterComment on above:Performed By: #### CBC #### [facility] [address] [place] [address] Dr. Amaya Ojedamphocytes/100 WBC (Bld)10.1 %Critically low20.5-60.0[facility], AvonComment on above:Performed By: #### CBC #### [facility] [address] [place] [address] Dr. Amaya Marie DIFF REQNONormalThe [facility] Medical CenterComment on above: Performed By: #### CBC #### [facility] [address] [place] [address] Dr. Amaya Connolly (RBC) [Entitic mass]29.6 loXmcimu90.9-34.0The [facility] CenterComment on above:Performed By: #### CBC #### [facility] [address] [place] [address] Dr. Amaya Connolly (RBC) [Mass/Vol]35.9 g/dLCritically high29.9-35.2The [facility] CenterComment on above:Performed By: #### CBC #### [facility] [address] [place] [address] Dr. Amaya Louis (RBC) [Entitic vol]82.4 uBOlmjvs88.0-94.0The [facility] CenterComment on above:Performed By: #### CBC #### [facility] [address] [place] [address] Dr. Amaya Joyner #0.6 103/ulNormal0.3-0.8The [facility] CenterComment on above:Performed By: #### CBC #### [facility] [address] [place] [address] Dr. Amaya Ashleyocytes/100 WBC (Bld)3.2 %Normal1.7-12.0[facility] [place] Comment on above:Performed By: #### CBC #### [facility] [address] [place] [address] Dr. Amaya Taylor #16.8 103/ulCritically high1.4-6.5The [facility] Comment on above:Performed By: #### CBC #### [facility] [address] [place] [address] Dr. Amaya Cervantesutrophils/100 WBC (Bld)84.9 %Critically high43.0-75.0The [facility] CenterComment on above:Performed By: #### CBC #### [facility] [address] [place] [address] Dr. Amaya Corrallet mean volume (Bld) [Entitic vol]9.5 fLNormal9.5-13.5The [facility] CenterComment on above:Performed By: #### CBC #### [facility] [address] [place] [address] Dr. Amaya SchultzPLT304 103/klCgsjyo941-784Dhj [facility] CenterComment on above: Performed By: #### CBC #### [facility] [address] [place] [address] Dr. Amaya SchultzRBC6.08 106/ulNormal4.70-6.10The [facility] CenterComment on above:Performed By: #### CBC #### [facility] [address] [place] [address] Dr. Amaya SchultzWBC19.8 103/ulCritically high4.0-11.0The [facility] CenterComment on above:Performed By: #### CBC #### [facility] [address] [place] [address] Dr. Amaya SchultzCT ABD/PELVIS WO CONon [id number] ABD/PELVIS WO CONEXAMINATION: CT ABD/PELVIS WO CON, 02/11/2022 10:05 AM [...] Electronically authenticated by: BLAYNE MORGAN Date: 2022-02-11 10:57[facility] URINE PROFILEon 86-84-5138Imeywppuh Ql (U)NegativeNormal NEGATIVESelect [facility], AvonComment on above:Performed By: #### HSTROPN, CMADM, LIPA, CMP #### [facility] [address] [address] [address] Amaya Rojas (U)CLEARNormalCLEARSelect Medical [facility], AvonComment on above: Performed By: #### HSTROPN, CMADM, LIPA, CMP #### [facility] [address] [address] [address] Amaya Hill (U)LT. YELLOWNormalYELLOWSelect Medical [facility] Hospital, AvonComment on above:Performed By: #### HSTROPN, CMADM, LIPA, CMP #### [facility] [address] [address] [address] Amaya Marinelli micrscopic examination will be performed if indicated. NormalSelect Medical [facility] Clinic Rehabilitation Hospital, AvonComment on above:Performed By: #### HSTROPN, CMADM, LIPA, CMP #### [facility] [address] [address] [address] Amaya SchultzGlucose Ql (U)1000 mg/dlAbnormalNEGATIVESelect [facility] [place] Comment on above:Performed By: #### HSTROPN, CMADM, LIPA, CMP #### [facility] [address] [address] [address] Amaya SchultzHemoglobin Ql (U)NegativeNormalNEGATIVESelect [facility] [place] Comment on above:Performed By: #### HSTROPN, CMADM, LIPA, CMP #### [facility] [address] [place] [address] Dr. Amaya Richard Ql (U)15 mg/dlAbnormalNEGATIVESelect [facility] [place] Comment on above:Performed By: #### HSTROPN, CMADM, LIPA, CMP #### [facility] [address] [place] [address] Dr. Amaya SchultzLEUKOCYTESNegativeNormalNEGATIVESelect [facility], AvonComment on above:Performed By: #### HSTROPN, CMADM, LIPA, CMP #### [facility] [address] [place] [address] Dr. Amaya Ramirez Ql (U)NegativeNormalNEGATIVESelect Medical [facility], AvonComment on above:Performed By: #### HSTROPN, CMADM, LIPA, CMP #### [facility] [address] [place] [address] Dr. Amaya SchultzpH (U)6.0 [pH]Normal5-9[facility], AvonComment on above: Performed By: #### HSTROPN, CMADM, LIPA, CMP #### [facility] [address] [place] [address] Dr. Amaya SchultzSPEC GRAVITY1.698Wpifin6.005-<=1.025The [facility] CenterComment on above:Performed By: #### HSTROPN, CMADM, LIPA, CMP #### [facility] [address] [place] [address] Dr. Amaya Kraft PROTEINNegativeNormalNEGATIVE/ TRACESelect [facility] [place] Comment on above:Performed By: #### HSTROPN, CMADM, LIPA, CMP #### [facility] [address] [place] [address] Dr. Amaya Mancia MICRO INDNOT INDICATEDOhioHealth Arthur G.H. Bing, MD, Cancer CenterComment on above:Performed By: #### HSTROPN, CMADM, LIPA, CMP #### [facility] [address] [place] [address] Dr. Amaya Rodriguez Qn (U)0.2 {Casey'U}/dLNormal0.2 - 1.0The [facility] at Southwoodsment on above:Performed By: #### HSTROPN, CMADM, LIPA, CMP #### [facility] [address] [place] [address] Dr. Amaya FergusonASEon 21-47-1752Yxwxin [Catalytic activity/Vol]73.0 U/LNormal 73.0-393.0The [facility] CenterComment on above:Performed By: #### HSTROPN, CMADM, LIPA, CMP #### [facility] [address] [place] [address] Dr. Amaya SchultzPROMinesh 14(COMP METB)on 03-47-8362Zljokcd [Mass/Vol]3.9 g/dLNormal 3.4-5.0The [facility] CenterComment on above:Performed By: #### HSTROPN, CMADM, LIPA, CMP #### [facility] [address] [place] [address] Dr. Amaya SchultzAlbumin/Globulin [Mass ratio]1.0 {ratio}NormalThe [facility] CenterComment on above:Performed By: #### HSTROPN, CMADM, LIPA, CMP #### [facility] [address] [place] [address] Dr. Amaya Narayan [Catalytic activity/Vol]120 U/LCritically jjdm14-242Jma [facility] CenterComment on above:Performed By: #### HSTROPN, CMADM, LIPA, CMP #### [facility] [address] [place] [address] Dr. Amaya Cee [Catalytic activity/Vol]26 U/GRmdgko92-16Xgb [facility] CenterComment on above:Performed By: #### HSTROPN, CMADM, LIPA, CMP #### [facility] [address] [place] [address] Dr. Amaya Cee gap [Moles/Vol]15.4 mmol/LNormalThe [facility] Comment on above:Performed By: #### HSTROPN, CMADM, LIPA, CMP #### [facility] [address] [place] [address] Dr. Amaya SchultzAST [Catalytic activity/Vol]11 U/LCritically qej77-53BovSelect Medical Cleveland Clinic Rehabilitation Hospital, AvonComment on above:Performed By: #### HSTROPN, CMADM, LIPA, CMP #### [facility] [address] [address] [address] Amaya SchultzBilirubin [Mass/Vol]1.0 mg/dLNormal0.2-1.0[facility] [place] Comment on above:Performed By: #### HSTROPN, CMADM, LIPA, CMP #### [facility] [address] [place] [address] Dr. Amaya SchultzCalcium [Mass/Vol]9.1 mg/dLNormal8.5-10.1[facility] [place] Comment on above:Performed By: #### HSTROPN, CMADM, LIPA, CMP #### [facility] [address] [place] [address] Dr. Amaya SchultzChloride [Moles/Vol]97 mmol/LCritically pft03-138Jcm [facility] CenterComment on above:Performed By: #### HSTROPN, CMADM, LIPA, CMP #### [facility] [address] [place] [address] Dr. Amaya SchultzCO2 [Moles/Vol]26.6 mmol/CKrvtsm67.0-32.0The [facility] Comment on above:Performed By: #### HSTROPN, CMADM, LIPA, CMP #### [facility] [address] [place] [address] Dr. Amaya SchultzCreatinine [Mass/Vol]1.10 mg/dLNormal0.70-1.30[facility], AvonComment on above:Performed By: #### HSTROPN, CMADM, LIPA, CMP #### [facility] [address] [place] [address] Dr. Yilan ChangEGFR-AF TAJIK>60Normal>=60The [facility] CenterComment on above:Performed By: #### HSTROPN, CMADM, LIPA, CMP #### [facility] [address] [address] [address] Amaya KendrickGFR-NON AF TAJIK>60Normal>=60The [facility] CenterComment on above:Performed By: #### HSTROPN, CMADM, LIPA, CMP #### [facility] [address] [place] [address] Dr. Amaya SchultzGlobulin (S) [Mass/Vol]4.0 g/dLNormalThe [facility] CenterComment on above:Performed By: #### HSTROPN, CMADM, LIPA, CMP #### [facility] [address] [place] [address] Dr. Amaya SchultzGlucose [Mass/Vol]383 mg/dLCritically wauf04-748Tjs [facility] CenterComment on above:Performed By: #### HSTROPN, CMADM, LIPA, CMP #### [facility] [address] [place] [address] Dr. Amaya SchultzPotassium [Moles/Vol]4.0 mmol/LNormal3.5-5.1The [facility] Comment on above:Performed By: #### HSTROPN, CMADM, LIPA, CMP #### [facility] [address] [address] [address] Amaya SchultzProtein [Mass/Vol]7.9 g/dLNormal6.4-8.2The [facility] Comment on above:Performed By: #### HSTROPN, CMADM, LIPA, CMP #### [facility] [address] [place] [address] Dr. Amaya SchultzSodium [Moles/Vol]135 mmol/LCritically ava320-148Wlx [facility] Southwoodsment on above:Performed By: #### HSTROPN, CMADM, LIPA, CMP #### [facility] [address] [place] [address] Dr. Amaya SchultzUrea nitrogen [Mass/Vol]15.0 mg/dLNormal7.0-18.0[facility], AvonComment on above:Performed By: #### CALEB, DAVEDM, LIPA, CMP #### [facility] [address] [address] [address] Amaya SchultzUrea nitrogen/Creatinine [Mass ratio]13.6 mg/mgNoSouthern Ohio Medical CenterComment on above:Performed By: #### CALEB, ELIDA, LIPA, CMP #### [facility] [address] [address] [address] Amaya SchultzXR CHEST 1 Von 30-70-8305AE CHEST 1 VEXAMINATION: XR CHEST 1 V HISTORY: SHORTNESS OF BREATH COMPARISON: [...] Electronically authenticated by: BLAYNE MORGAN Date: 2022-02-11 08:36[facility] Vital Signs Date TimeVital SignValuePerforming YhjuygbejJwcmasmn61-97-8378 14:39-0400 Diastolic blood ahiujzkh83 mm[Hg]Brinda Howell INDUSTRIAL HYGIENE TECHNICIAN Work Phone: [facility] CenterAtlhywtuuw41-72-5925 14:39-0400Systolic blood rdyndamv562 mm[Hg]Brinda Howell INDUSTRIAL HYGIENE TECHNICIAN Work Phone: [facility]OC[facility] HealthHrrnakfzwe82-90-7176 14:02-0400Body mass index (BMI) [Ratio]31.05 kg/m2Brinda Howell INDUSTRIAL HYGIENE TECHNICIAN Work Phone: [facility] CenterJwcsjanpie92-01-3278 14:02-0400Body temperature 97.5 [degF]Brinda Howell INDUSTRIAL HYGIENE TECHNICIAN Work Phone: [facility] CenterBvqzkyaqlf33-24-8881 14:02-0400Body varvlq97.63 kgLisa Almaholz INDUSTRIAL HYGIENE TECHNICIAN Work Phone: [address] [phone] 14:02-0400Heart rate83 /min Brinda Almaholz INDUSTRIAL HYGIENE TECHNICIAN Work Phone: [address] [phone] 14:02-0400Respiratory rate18 /minLisa Aichholz INDUSTRIAL HYGIENE TECHNICIAN Work Phone: [address] [phone] 14:02-4566YgW0% (BldA) [Mass fraction]96 %Brinda Almaholz INDUSTRIAL HYGIENE TECHNICIAN Work Phone: [facility] CenterFdqtqwsiun51-04-0320 15:31-0400Diastolic blood mxyfrtah92 mm[Hg]Brinda Alberthholz INDUSTRIAL HYGIENE TECHNICIAN Work Phone: [facility] CenterLcbizyjlgb68-33-8502 15:31-0400Systolic blood ebsqihzi213 mm[Hg]Brinda Almaholz INDUSTRIAL HYGIENE TECHNICIAN Work Phone: [facility] CenterRjaiksezun54-07-4746 15:11-0400Body mass index (BMI) [Ratio]30.01 kg/m2Lisa Alberthholz INDUSTRIAL HYGIENE TECHNICIAN Work Phone: [facility] CenterGmpcawhxfq29-22-3331 15:11-0400Body temperature 98.29 [degF]Brnida Almaholz INDUSTRIAL HYGIENE TECHNICIAN Work Phone: [facility] CenterEhorkfdawr84-15-0783 15:11-0400Body .54 kgLisa Almaholz INDUSTRIAL HYGIENE TECHNICIAN Work Phone: [facility] CenterFncjtrtaxw41-38-7855 15:11-0400Heart rate74 /min Brinda Alberthholz INDUSTRIAL HYGIENE TECHNICIAN Work Phone: [facility] CenterGwkrkifgmo72-38-4331 15:11-0400Respiratory rate18 /minLisa Aichholz INDUSTRIAL HYGIENE TECHNICIAN Work Phone: [facility] CenterBsyddzusoj03-65-1186 15:11-4637UkL2% (BldA) [Mass fraction]96 %Brinda Alberthholz INDUSTRIAL HYGIENE TECHNICIAN Work Phone: [address] [address]Oobeqkhhzq01-12-1283 15:11-0400Body tktdif065.7 cmLisa Almaholz INDUSTRIAL HYGIENE TECHNICIAN Work Phone: [facility] CenterZweodpqyqb38-73-5952 15:11-0400Body mass index (BMI) [Ratio]29.8 kg/m2Lisa Alberthholz INDUSTRIAL HYGIENE TECHNICIAN Work Phone: [facility] CenterIygtpgrfct03-64-2728 15:11-0400Body temperature 97.81 [degF]Brinda Almaholz INDUSTRIAL HYGIENE TECHNICIAN Work Phone: [phone]) [phone] Perkins StreetMaejglxpze76-29-4966 15:11-0400Body tpzlio07.91 kgLisa Alberthholz INDUSTRIAL HYGIENE TECHNICIAN Work Phone: [address] [address]Blqxvaedsq76-61-0101 15:11-0400Diastolic blood gybpdvcg40 mm[Hg]Brinda Almaholz INDUSTRIAL HYGIENE TECHNICIAN Work Phone: [facility] CenterTrtpccfqqz13-87-6472 15:11-0400Heart rate64 /min Brinda Almaholz INDUSTRIAL HYGIENE TECHNICIAN Work Phone: [address] [phone] 15:11-0400Respiratory rate18 /minLisa Alberthholz INDUSTRIAL HYGIENE TECHNICIAN Work Phone: [address] [phone] 15:11-9265KkW2% (BldA) [Mass fraction]98 %Brinda Almaholz INDUSTRIAL HYGIENE TECHNICIAN Work Phone: [address] [address]Vjsrjldxkt49-13-1542 15:11-0400Systolic blood oclrvvbu537 mm[Hg]Brinda Almaholz INDUSTRIAL HYGIENE TECHNICIAN Work Phone: [facility] CenterNqllfjnrsq36-35-3148 14:43-0400Body mass index (BMI) [Ratio]30.35 kg/m2Lisa Alberthholz INDUSTRIAL HYGIENE TECHNICIAN Work Phone: [facility] CenterYjnbhxpocr34-18-8554 14:43-0400Body temperature 98.2 [degF]Brinda Alberthholz INDUSTRIAL HYGIENE TECHNICIAN Work Phone: [facility] CenterCgtyvjjcaa89-40-5207 14:43-0400Body difzbp12.54 kgLisa Aichholz INDUSTRIAL HYGIENE TECHNICIAN Work Phone: [facility] CenterLybkwlxrrn14-69-2622 14:43-0400Diastolic blood qdfuzghz904 mm[Hg]Brinda Howell INDUSTRIAL HYGIENE TECHNICIAN Work Phone: [facility] CenterXrfgnyhinv89-64-7875 14:43-0400Heart rate73 /min Brinda Howell INDUSTRIAL HYGIENE TECHNICIAN Work Phone: [facility] CenterLzvzikolfi49-84-9180 14:43-0400Respiratory rate18 /minBrinda Howell INDUSTRIAL HYGIENE TECHNICIAN Work Phone: [facility] CenterBebikmhvux08-73-1866 14:43-8103PxX6% (BldA) [Mass fraction]97 %Brinda Howell INDUSTRIAL HYGIENE TECHNICIAN Work Phone: [facility] CenterHxcxsbncox41-87-7191 14:43-0400Systolic blood orfpxlet358 mm[Hg]Brinda Howell INDUSTRIAL HYGIENE TECHNICIAN Work Phone: [facility] CenterWnndgrtezs71-93-5355 13:50-0500Body .7 cmBrcoreen Pope INDUSTRIAL HYGIENE TECHNICIAN Work Phone: [facility] CenterObmngeuktd93-54-6815 13:50-0500Body mass index (BMI) [Ratio]30.26 kg/u1Wjhvcqyl Pope INDUSTRIAL HYGIENE TECHNICIAN Work Phone: [facility] CenterCsgrteousz39-61-2652 13:50-0500Body temperature 98.1 [degF]Arcelia Pope INDUSTRIAL HYGIENE TECHNICIAN Work Phone: [facility] CenterYiskvnncxt85-59-7828 13:50-0500Body gvmryv13.27 kgBrcoreen Pope INDUSTRIAL HYGIENE TECHNICIAN Work Phone: [facility] CenterIjlrbopfxo30-27-5794 13:50-0500Diastolic blood whqcvbku52 mm[Hg]Arcelia Pope INDUSTRIAL HYGIENE TECHNICIAN Work Phone: [facility] CenterBjnbiafhch90-94-1767 13:50-0500Heart rate66 /min Arcelia Pope INDUSTRIAL HYGIENE TECHNICIAN Work Phone: 1(854) [phone] [address] StreetGhdeuospih55-55-8823 13:50-0500Respiratory rate16 /minBrittany Pope INDUSTRIAL HYGIENE TECHNICIAN Work Phone: [facility] CenterXqkgilnnoh97-70-9429 13:50-4678JpO3% (BldA) [Mass fraction]99 %Arcelia Pope INDUSTRIAL HYGIENE TECHNICIAN Work Phone: [facility] CenterDfdothrvcl97-16-4109 13:50-0500Systolic blood azrrylna910 mm[Hg]Arcelia Pope INDUSTRIAL HYGIENE TECHNICIAN Work Phone: [facility] CenterHdyahrinwy73-32-8922 09:50-0400Body exdxgp690.7 cmArcelia Pope INDUSTRIAL HYGIENE TECHNICIAN Work Phone: [facility] CenterGogxajfyqn89-48-3752 09:50-0400Body mass index (BMI) [Ratio]30.11 kg/q5Cfxeflxu Pope INDUSTRIAL HYGIENE TECHNICIAN Work Phone: [facility] CenterLijpcfgrju50-19-3111 09:50-0400Body temperature 97.9 [degF]Arcelia Pope INDUSTRIAL HYGIENE TECHNICIAN Work Phone: [facility] CenterYtcbfajmsr98-88-2134 09:50-0400Body nowkzf19.81 kgBrittbaljinder Pope INDUSTRIAL HYGIENE TECHNICIAN Work Phone: [facility] CenterJmuclkmlna82-10-7498 09:50-0400Diastolic blood zhibgjwz744 mm[Hg]Arcelia Pope INDUSTRIAL HYGIENE TECHNICIAN Work Phone: noms HealthcareComment on above:RT ARM 134/100 LG CUFF 04-24-2024 09:50-0400Heart rate77 /minBrittany Pope INDUSTRIAL HYGIENE TECHNICIAN Work Phone: noms HealthcareComment on above:97% H811-62-3001 09:50-0400Systolic blood gbtmkfog345 mm[Hg]Arcelia Pope INDUSTRIAL HYGIENE TECHNICIAN Work Phone: noms HealthcareComment on above:RT ARM 134/100 LG CUFF Encounters Encounter DateEncounter TypeCare ProviderFacilityStart: 03-31-2025 End: 38-61-8164Yqhczc flowsTeo Marquezholz INDUSTRIAL HYGIENE TECHNICIAN Work Phone: [facility] CWM FMStart: 03-31-2025 End: 91-04-5282Hqoyrv flowsmaritaLisa Marquezholz INDUSTRIAL HYGIENE TECHNICIAN Work Phone: [facility] FMStart: 03-31-2025 End: 55-42-0145Fwqxuh outpatient visit 25 minutesLisa Almaholz INDUSTRIAL HYGIENE TECHNICIAN Work Phone: [facility] CWM FMComment on above:Type 2 diabetes mellitus without complications (HCC) (Primary Dx); Primary hypertension ; Coronary artery disease involving [place] coronary artery 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 angina pectoris ; Type 2 diabetes mellitus with other specified complication, without long-term current use of insulin (HCC); Mixed hyperlipidemia ; Cigarette nicotine dependence without complication; Essential (primary) hypertension ; Essential hypertension ; Generalized anxiety disorder ; Tobacco dependencyStart: 03-31-2025 End: 45-08-1139jahivcdydmWXDO AICHHOLZNot AvailableStart: 02-11-2025 End: 43-35-2225HropaiWfkn Aichholz INDUSTRIAL HYGIENE TECHNICIAN Work Phone: [facility] CWM FMComment on above:Tobacco dependencyStart: 01-28-2025 End: 21-27-6899WjmbyfLfan Almaholz INDUSTRIAL HYGIENE TECHNICIAN Work Phone: [facility] CWM FMComment on above:Type 2 diabetes mellitus without complications (HCC); Essential (primary) hypertension ; Essential hypertensionStart: 01-27-2025 End: 77-75-5616Wwfoue outpatient visit 25 minutesLisa Almaholz INDUSTRIAL HYGIENE TECHNICIAN Work Phone: [facility] CWM FMComment on above:Primary hypertension (Primary Dx); Coronary artery disease involving [place] coronary artery 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 angina pectoris ; Type 2 diabetes mellitus with other specified complication, without long-term current use of insulin (HCC); Cigarette nicotine dependence without complication; Tobacco dependencyStart: 01-27-2025 End: 60-86-6696cmmtaltgxuLVPC AICHHOLZNot AvailableStart: 01-27-2025 End: 23-17-8809Ugjdyg flowsheetLisa Aichholz INDUSTRIAL HYGIENE TECHNICIAN Work Phone: NOKO CWM FMStart: 01-27-2025 End: 57-45-1383Slcdre flowsheetLisa Aichholz INDUSTRIAL HYGIENE TECHNICIAN Work Phone: NOKN CWM FMStart: 12-30-2024 End: 61-20-0443VipyctXphm Naderer MD Work Phone: NOLJ CWM FMComment on above:Tobacco dependencyStart: 12-05-2024 End: 82-67-4371OktpbsEhqn Aichholz INDUSTRIAL HYGIENE TECHNICIAN Work Phone: NOIV CWM FMComment on above:Generalized anxiety disorder (CMS/HCC)Start: 11-27-2024 End: 75-95-9051Qiksyw outpatient visit 15 minutesLisa Aichholz INDUSTRIAL HYGIENE TECHNICIAN Work Phone: NOXN CWM FMComment on above:Primary hypertension (CMS/HCC) (Primary Dx); Cigarette nicotine dependence without complicationStart: 11-27-2024 End: 26-07-8956eezwjkydmkPCXE AICHHOLZNot AvailableStart: 11-27-2024 End: 58-43-1309Udcnei flowsheetLisa Aichholz INDUSTRIAL HYGIENE TECHNICIAN Work Phone: NOTT CWM FMStart: 11-27-2024 End: 48-18-5507Szuffu flowsheetLisa Aichholz INDUSTRIAL HYGIENE TECHNICIAN Work Phone: NOYM CWM FMStart: 11-22-2024 End: 61-54-6734Ohrhzqjel Result EncounterLisa Aichholz INDUSTRIAL HYGIENE TECHNICIAN Work Phone: [facility] External Department UnsolicitedStart: 11-22-2024 End: 00-67-9264Bfpegwkbw Result EncounterLisa Aichholz INDUSTRIAL HYGIENE TECHNICIAN Work Phone: NOYY External Department UnsolicitedStart: 11-06-2024 End: 43-48-1913Afdqih outpatient visit 25 minutesLisa Aichholz INDUSTRIAL HYGIENE TECHNICIAN Work Phone: noMS CWM FMComment on above:Type 2 diabetes mellitus with other specified complication (CMS/HCC) (Primary Dx); Pure hyperglyceridemia (CMS/HCC); Coronary artery disease involving [place] coronary artery 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 angina pectoris (CMS/HCC); Primary hypertension (CMS/HCC); Mixed hyperlipidemia (CMS/HCC); Cigarette nicotine dependence without complication; Essential (primary) hypertension (CMS/HCC); Essential hypertension (CMS/HCC); Tobacco dependencyStart: 11-06-2024 End: 04-62-3050jsodwxvspxJGNP AICHHOLZNot AvailableStart: 11-06-2024 End: 26-34-6158Pgwcud flowsheetLisa Aichholz INDUSTRIAL HYGIENE TECHNICIAN Work Phone: [facility] CWM FMStart: 11-06-2024 End: 94-53-3532Tlrans flowsheetLisa Aichholz INDUSTRIAL HYGIENE TECHNICIAN Work Phone: [facility] CWM FMStart: 09-19-2024 End: 49-55-6815BhvojcEvgycugp Pope INDUSTRIAL HYGIENE TECHNICIAN Work Phone: [facility] CWM FMComment on above:Mixed hyperlipidemia (CMS/HCC)Start: 07-24-2024 End: 50-30-9108Pwasbv flowsheetBrittany Pope INDUSTRIAL HYGIENE TECHNICIAN Work Phone: [facility] CWM FMStart: 07-24-2024 End: 90-54-7694Pdccwj flowsheetBrittany Pope INDUSTRIAL HYGIENE TECHNICIAN Work Phone: [facility] CWM FMStart: 07-24-2024 End: 53-16-3385Uviznn outpatient visit 15 minutesBrittany Pope INDUSTRIAL HYGIENE TECHNICIAN Work Phone: [facility] CWM FMComment on above:Mixed hyperlipidemia (CMS/HCC) (Primary Dx); Diabetes mellitus type II, non insulin dependent (CMS/HCC); Primary hypertension (CMS/HCC); Type 2 diabetes mellitus without complications (CMS/HCC); Tobacco dependencyStart: 07-24-2024 End: 20-40-2235jrywuamivqIVZFWYWV FITZPATRICKNot AvailableStart: 07-23-2024 End: 56-38-8502Amqlpo OnlyAilynbaljinder GoinsPope INDUSTRIAL HYGIENE TECHNICIAN Work Phone: noms CWM FMComment on above:Type 2 diabetes mellitus without complications (CMS/HCC)Start: 07-22-2024 End: 71-82-3051ldyjpaeogmKlunnzsnJensen PopeFacility:[facility] Hospitaltart: 07-20-2024 End: 33-48-4563Eyuddcrtg Result EncounterArcelia Goinszpatrick INDUSTRIAL HYGIENE TECHNICIAN Work Phone: noms External Department UnsolicitedStart: 07-20-2024 End: 01-62-7933Okbdjtohl Result EncounterArcelia Goinszpatrick INDUSTRIAL HYGIENE TECHNICIAN Work Phone: noms External Department UnsolicitedStart: 07-19-2024 End: 70-02-5273XelpjwHildvdkt Pope INDUSTRIAL HYGIENE TECHNICIAN Work Phone: NOIG CWM FMComment on above:Essential (primary) hypertension (CMS/HCC); Essential hypertension (CMS/HCC)Start: 07-18-2024 End: 61-22-3701RkkrfgKafkfgyq Pope INDUSTRIAL HYGIENE TECHNICIAN Work Phone: noms CWM FMComment on above:Tobacco dependencyStart: 04-24-2024 End: 56-51-2224Vdlurq flowsheetCindycoreen Pope INDUSTRIAL HYGIENE TECHNICIAN Work Phone: NOQV CWM FMStart: 04-24-2024 End: 77-03-6049Wswzpc flowsheetCindymatthewany Pope INDUSTRIAL HYGIENE TECHNICIAN Work Phone: NOXD CWM FMStart: 04-24-2024 End: 00-48-1001Ssnbgp outpatient visit 25 minutesBrcoreen Lennontrick INDUSTRIAL HYGIENE TECHNICIAN Work Phone: N[facility] CWM FMComment on above:Primary hypertension (CMS/HCC) (Primary Dx); Diabetes mellitus type II, non insulin dependent (CMS/HCC); Mixed hyperlipidemia (CMS/HCC); Type 2 diabetes mellitus without complications ([facility]/HCC); Tobacco dependencyStart: 04-24-2024 End: 57-91-3521mqwplrnjmwICGXNRPC FITCatrachitaPATRICKNot AvailableStart: 04-20-2024 End: 75-07-6213DrdiylQzeyuckv Pope INDUSTRIAL HYGIENE TECHNICIAN Work Phone: noms CWM FMComment on above:Generalized anxiety disorder (CMS/HCC)Start: 04-19-2024 End: 19-54-1076Jhwikazjs Result EncounterSdemetra Linder MD Work Phone: noms External Department UnsolicitedStart: 04-19-2024 End: 35-61-7970Zthcxnwao Result EncounterSdemetra Linder MD Work Phone: noms External Department UnsolicitedStart: 08-22-2023 Patient encounter statusShseamus Linder MD Work Phone: noms HealthcareStart: 07-04-2022 End: 68-65-1753nadlcigdjpSLZJLE [facility] Start: 07-04-2022 End: 96-46-6206lmonbsivqjDZQLZSU BOESFacility:K2Ekzyf: 51-38-0577jyaywbigbj MICHAEL BOESFacility:O1Wuuur: 04-19-2022 End: 71-45-6830werkoeekpgUD DOCTOR MISCFacility:S0Qkbyj: 03-28-2022 End: 29-95-3453Qppjiabroz and management of memorial medical centerNOHEMI AGARWAL Facility:[facility]MCStart: 03-28-2022 End: 48-21-7481fhxbdvodyeMW NOHEMI AGARWALFacility:V7Vtzta: 02-11-2022 End: 74-61-7967pabtidygzhCIJessie AGARWALFacility:H1 Procedures DateProcedureProcedure DetailPerforming ClinicianStart: 29-44-3407Cmgghvotto glycosylated g8kKmdr Lynda INDUSTRIAL HYGIENE TECHNICIAN Work Phone: Start: 69-04-4370UIW BASIC METABOLIC PANELLisa Lynda INDUSTRIAL HYGIENE TECHNICIAN Work Phone: Start: 42-19-3725KZS MICROALB CREAT RATIO RANDOM Arcelia Pope INDUSTRIAL HYGIENE TECHNICIAN Work Phone: Start: 11-26-7677SDR HEMOGLOBIN M1TJwhybjShaikh Niyah FORRESTER Work Phone: Start: 94-11-0403Mzdpxui of placement of stent for coronary artery diseaseStatus post insertion of drug eluting coronary artery stentSdemetra Linder MD Work Phone: Plan of Treatment DateCare ActivityDetailAuthorStart: 75-25-4503Zqpaidep screeningDiabetes: Retinopathy ScreeningAMERICAN FORK [facility] HealthcareStart: 40-29-7793Pyjqvpfxl for malignant neoplasm of colonNOLA HealthcareStart: 63-75-2957Cfvte screening for protein Diabetes: Urine Protein ScreeningAMERICAN FORK HOSPITAL HealthcareStart: 15-25-0847Lwymnwzjth A1c measurementDiabetes: Hemoglobin M5VVZRU HealthcareStart: 49-71-4794Zyqbwsmgs vaccinationAMERICAN FORK HOSPITAL HealthcareStart: 03-31-2025 End: 25-20-5792Ojrundl encounter procedureNOMS CWM FMComment on above:Primary hypertension (Primary Dx); Coronary artery disease involving newtok coronary artery 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 angina pectoris ; Type 2 diabetes mellitus with other specified complication, without long-term current use of insulin (HCC); Mixed hyperlipidemia ; Cigarette nicotine dependence without complicationStart: 06-14-3896Ndzxavroyi A1c measurementDiabetes: Hemoglobin L8GHZHV HealthcareStart: 01-27-2025 End: 10-97-5177Zepkmyo encounter procedureNOMS CWM FMComment on above:Coronary artery disease involving newtok coronary artery 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 angina pectoris (Primary Dx); Primary hypertension ; Type 2 diabetes mellitus with other specified complication, without long-term current use of insulin (HCC); Cigarette nicotine dependence without complicationStart: 03-94-5086Bycmwjqeq vaccinationInfluenza Vaccine (#1)[facility]S HealthcareComment on above:Postponed from 04/14/2024 (Patient Refused)Start: 11-27-2024 End: 43-89-9556Kibzgdb encounter procedureNOMS CWM FMComment on above:Primary hypertension (CMS/HCC) (Primary Dx); Cigarette nicotine dependence without complicationStart: 11-06-2024 End: 57-21-5161Gvtfzyt encounter tuxokxsnh84/26/2025 2:40 PM EDT Office Visit [facility] [address] [place] [phone] Brinda Howell NP [address] [place] [id number] Coronary artery disease involving newtok coronary artery 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 angina pectoris (CMS/HCC) (Primary Dx); Type 2 diabetes mellitus with other specified complication (CMS/HCC); Pure hyperglyceridemia (CMS/HCC); Primary hypertension (CMS/HCC); Mixed hyperlipidemia (CMS/HCC); Cigarettenicotine dependence without complicationNOMS [facility] FMComment on above: Coronary artery disease involving newtok coronary artery 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 angina pectoris (CMS/HCC) (Primary Dx); Type 2 diabetes mellitus with other specified complication (CMS/HCC); Pure hyperglyceridemia (CMS/HCC); Primary hypertension (CMS/HCC); Mixed hyperlipidemia (CMS/HCC); Cigarette nicotine dependence without complicationStart: 11-06-2024 End: 38-01-8798Hjykb metabolic 1998 panel - Serum or PlasmaBasic metabolic panel Lab Routine Type 2 diabetes mellitus with other specified complication (CMS/HC C) Coronary artery disease involving newtok coronary artery 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 angina pectoris(CMS/HCC) Primary hypertension (CMS/HCC) Expected: 11/06/2024 (Approximate), Expires: 11/06/2025[facility] Work Phone: Comment on above:Expected: 11/06/2024 (Approximate), Expires: 11/06/2025Start: 10-23-2024 End: 41-96-1353Eedhaua encounter coptajlbt67/12/2025 2:00 PM EDT Office Visit [facility] [address] [place] [phone] Arcelia Pope NP [address] [place] [address] N[facility] CWM FMStart: 07-24-2024 End: 58-72-2601EBP W Auto Differential panel - BloodCBC and differential Lab Routine Primary hypertension ([facility]/HCC) Type 2 diabetes mellitus without com plications (CMS/HCC) Expected: 07/24/2024 (Approximate), Expires: 04/24/2025NOMS HealthcareComment on above:Expected: 07/24/2024 (Approximate), Expires: 04/24/2025Start: 07-24-2024 End: 76-44-0042Uuqfbobkdkiyr metabolic 2000 panel - Serum or PlasmaComprehensive metabolic panel Lab Routine Primary hypertension ([facility]/HCC) Type 2 diabetes mellitus without complications (CMS/HCC) Expected: 07/24/2024 (Approximate), Expires: 04/24/2025NOMS HealthcareComment on above:Expected: 07/24/2024 (Approximate), Expires: 04/24/2025Start: 07-24-2024 End: 88-60-4176Xfnvirosqr A1c/Hemoglobin.total in BloodHemoglobin A1c Lab Routine Primary hypertension ([facility]/HCC) Type 2 diabetes mellitus without complications ([facility]/HCC) Expected: 07/24/2024 (Approximate), Expires: 04/24/2025 NOMS HealthcareComment on above:Expected: 07/24/2024 (Approximate), Expires: 04/24/2025Start: 07-24-2024 End: 15-15-4165Nndls 1996 panel - Serum or PlasmaLipid panel Lab Routine Mixed hyperlipidemia ([facility]/HCC) Expected: 07/24/2024 (Approximate), Expires:04/24/2025 [facility] Healthcare Work Phone: Comment on above:Expected: 07/24/2024 (Approximate), Expires: 04/24/2025Start: 07-24-2024 End: 09-42-2564Rgitgfd encounter procedureNOMS CWM FMComment on above:Arrived Start: 67-74-0148Tsdkzehq screeningDiabetes: Retinopathy ScreeningNOMS HealthcareStart: 53-75-3429Qsthy screening for proteinDiabetes: Urine Protein ScreeningAMERICAN FORK HOSPITAL HealthcareStart: 04-24-2024 End: 76-46-0749Betjilakdaxo/Creatinine panel in random UrineMicroalbumin / creatinine urine ratio Lab Routine Primary hypertension (CMS/HCC) Type 2 diabetes mellitus without complications (CMS/HCC) Expected: 04/24/2024 (Approximate), Expires: 07/24/2024NOLA HealthcareComment on above:Expected: 04/24/2024 (Approximate), Expires: 07/24/2024Start: 04-24-2024 End: 13-64-3170Xzhscwz encounter xlyrmhsgd27/11/2024 10:00 AM EDT Office Visit [facility] [address] [place] [phone] Arcelia Pope NP [address] [place] [phone] Primary hypertension (CMS/HCC) (Primary Dx); Diabetes mellitus type II, non insulin dependent (CMS/HCC); Mixed hyperlipidemia (CMS/HCC)[facility] FMComment on above:Primary hypertension (CMS/HCC) (Primary Dx); Diabetes mellitus type II, non insulin dependent (CMS/HCC); Mixed hyperlipidemia (CMS/HCC)Start: 04-22-2024 End: 40-66-0228Cvqcgor encounter uuecpwetk56/09/2024 3:00 PM EDT Office Visit [facility] [address] [place] [phone] Arcelia Pope NP [address] [place] [phone] [facility] FMStart: 55-43-5669Kvjyoddgp vaccinationInfluenza Vaccine (#1)[facility] HealthcareStart: 81-35-6648Qwqkkhxree A1c measurementDiabetes: Hemoglobin P5LIFIJ HealthcareStart: 05-03-0113Tvkhkjbhn for malignant neoplasm of colonAMERICAN FORK HOSPITAL Healthcare Payers DatePayer CategoryPayerPolicy [id number] Health Insurance [id number] Health [id number] Cross Blue ShieldBCBS Member Subscriber Plan / Payer (Effective 2022-Present) Name: Omid Nix Member ID: [id number] Relation to Subscriber: Spouse Name: DEBBIE NIX Subscriber ID: [id number] Date of : 1974 Address: [address] [place] [address] Payer ID: Not on file Type: Not on file Address: [address] [place] [id number] [facility] [id number] 2022-Present [phone] [address] [place] [phone] [id number] [id number] 2..1.604758.3.579.2.647 [id number] 2..1.906836.3.57[id number] 2..1.740795.3.57[id number] 2..1.584112.3.57[id number] 2.0.1.412277.3.57[id number] 2.16.840.1.372838.3.57[id number] 2.16.840.1.882739.3.57[id number] 2.16.840.1.457307.3.57[id number] 2.16.840.1.200902.3.57[id number] 2.16.840.1.601170.3.57[id number] 2.16.840.1.023097.3.57[id number] 2..840.1.181367.3.57[id number] 2.16.840.1.802879.3.579.2.308826-83-8256Tsfi-ono Social History DateTypeDetailFacilityStart: 08-14-1991 End: 03-43-9705Wrwaxgw smoking status NHISSmokes tobacco dailyNOLA Healthcare Start: 21-63-1461Otjsyby of tobacco useCigarette SmokerNOLA HealthcareStart: 04-24-2024 End: 74-32-2977Tvnbuifhuv smoked current (pack per day) - Kgughtlo6MAJI HealthcareStart: 01-22-2024 End: 31-05-5656Osobasd use and exposureSmokeless tobacco non-userNOMS Healthcare Start: 04-24-2024 End: 00-33-3747Lsvwjctmi beverage intakeLifetime non-drinker (finding)[facility] HealthcareStart: 04-24-2024 End: 82-59-6584Kojyiuh use panelNOLA HealthcareStart: 90-47-9915Alf assigned at birthNot on [facility] 04-02-2022 to 03-31-2025 Note Date & OecyGulhLyrigeod24-25-1543 History of Present illness Narrative* SHERIDAN FISCHER - 03/31/2025 2:00 PM EDT - headaches, chest pain, or discomfort Pt does not check BG-maybe periodically when he is working at night and that has been 180s Pt does not have ingrid sensor in-frequently forgets that he has sensors * Brinda Howell, JT - 03/31/2025 2:00 PM EDT Images from the original note were not included. Omid Nix is a 49 y.o. male presents with chief complaint of Diabetes HPI: Diabetes He presents for his follow-up diabetic visit. He has type 2 diabetes mellitus. His disease course has been fluctuating. There are no hypoglycemic associated symptoms. Pertinent negatives for hypoglycemia include no dizziness, headaches, nervousness/anxiousness, seizures or tremors. Associated symptoms include foot paresthesias (L>R) and polydipsia. Pertinent negatives for diabetes include no blurred vision, no polyphagia, no polyuria and no visual change. There are no hypoglycemic complications. Diabetic complications include heart disease and peripheral neuropathy. Pertinent negatives fordiabetic complications include no PVD. Risk factors for coronary artery disease include diabetes mellitus, dyslipidemia, hypertension, male sex, obesity, sedentary lifestyle and tobacco exposure. Current diabetic treatment includes oral agent (dual therapy). His overall blood glucose range is 180-200 mg/dl. An KEIRA inhibitor/angiotensin II receptor mai is being taken. He does not see a rental manager.Eye exam is current. Hypertension This is a chronic problem. The current episode started more than 1 year ago. The problem is unchanged. The problem is controlled. Pertinent negatives include no blurred vision, headaches, palpitations, peripheral edema or shortness of breath. There are no associated agents to hypertension. Risk factors for coronary artery disease include diabetes mellitus, dyslipidemia, obesity and sedentary lifestyle. Past treatments include beta blockers, calcium channel blockers, diuretics and angiotensin blockers. The current treatment provides significant improvement. There are no compliance problems. Hypertensive end- organ damage includes CAD/DC. There is no history of heart failure or PVD. SUBJECTIVE: MEDICATIONS: Current Outpatient Medications Medication Instructions amLODIPine (NORVASC) 10 mg, Oral, Daily aspirin (ASPIRIN LOW DOSE) 81 mg, Oral, Daily atorvastatin (LIPITOR) 80 mg, Oral, Nightly busPIRone (BUSPAR) 10 mg, Oral, 2 times daily carvedilol (COREG) 25 mg, Oral, 2 times daily Continuous Blood Gluc Sensor (FreeStyle Ingrid 2 Sensor) misc 1 Units, Daily losartan-hydroCHLOROthiazide (Hyzaar) 100-25 MG tablet 1 tablet, Oral, Daily metFORMIN (GLUCOPHAGE) 1,000 mg, Oral, 2 times daily with meals omega-3 acid ethyl esters (LOVAZA) 2 g, [...] of breath and wheezing. Cardiovascular: Negative for palpitations and leg swelling. Gastrointestinal: Negative for abdominal distention, blood in stool, constipation and diarrhea. Genitourinary: Negative for decreased urine volume, difficulty urinating, dysuria and hematuria. Skin: Negative for color change. Neurological: Negative for dizziness, tremors, seizures and headaches. Psychiatric/Behavioral: Negative for agitation, decreased concentration, hallucinations, self-injury and suicidal ideas. The patient is not nervous/anxious. Hematological: Negative for adenopathy. Does not bruise/bleed easily. Endocrine: Positive for polydipsia. Negative for cold intolerance, heat intolerance, polyphagia andpolyuria. Allergic/Immunologic: Negative for environmental allergies and food allergies. PAST MEDICAL HISTORY Past Medical History: Diagnosis Date Anxiety CAD (coronary artery disease) ED (erectile dysfunction) HLD (hyperlipidemia) HTN (hypertension) Hypertension Smoking Type 2 diabetes mellitus (HCC) Past Surgical History: Procedure Laterality Date CAROTID STENT family history includes Coronary artery disease in his father and mother; Diabetes in his father; Hypertension in his mother; Seizures in his mother; Stroke in his father and mother. OBJECTIVE: Visit Vitals BP (!) 144/92 (BP Location: Left arm, Patient Position: Sitting, BP Cuff Size: Large adult) Pulse 83 Temp 97.5 F (Temporal) Resp 18 Wt 204 lb 3.2 oz SpO2 96% BMI 31.05 kg/m Smoking Status Every Day BSA 2.11 m Physical Exam Vitals and nursing note reviewed. Constitutional: Appearance: Normal appearance. HENT: Head: Normocephalic. Right Ear: External ear normal. Left Ear: External ear normal. Nose: Nose normal. Mouth/Throat: Mouth: Mucous membranes are moist. Pharynx: Oropharynx is clear. Eyes: Extraocular Movements: Extraocular movements intact. Conjunctiva/sclera: Conjunctivae normal. Neck: Vascular: No carotid bruit. Cardiovascular: Rate and Rhythm: Normal rate and regular rhythm. Pulses: Normal pulses. Heart sounds: Normal heart sounds. No murmur heard. Pulmonary: Effort: Pulmonary effort is normal. Breath sounds: Normal breath sounds. No wheezing or rhonchi. Abdominal: General: Bowel sounds are normal. Palpations: Abdomen is soft. Musculoskeletal: Cervical back: Neck supple. Right lower [...] normal. Judgment: Judgment normal. ASSESSMENT AND PLAN: Follow up in about 3 months (around 07/01/2025) for Recheck. Problem List Items Addressed This Visit Coronary artery disease involving newtok coronary artery 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 angina pectoris Current medication: asa, statin, b ami Control risk factors Relevant Medications atorvastatin (Lipitor) 80 MG tablet Mixed hyperlipidemia On statin therapy Check labs yearly and prn dose changes Relevant Medications aspirin (Aspirin Low Dose) 81 MG chewable tablet omega-3 acid ethyl esters (Lovaza) 1 g capsule Primary hypertension - Primary Please check blood pressure daily and record DASH diet Limit caffeine Take medication as directed Contact office if chest pain, pressure, dizziness, shortness of breath, swelling legs Recommend slow position changes Current meds: amlodipine, b ami, losartan/hydrochlorothiazide Type 2 diabetes mellitus with other specified complication (HCC) Check blood sugars daily, notify if <70 or >200. Take medications (pills or insulin) as directed. Monitor for s/s of hypoglycemia (sweaty, dizziness, nausea, vomiting, or shakiness). Watch for increase in thirst, urination, or appetite. Inspect feet frequently monitoring for open wounds , andalso recommend yearly eye exam. Pt should attempt to remain as physically active as chronic conditions allow, as well as trying to follow a diet low in carbohydrates, and simple sugars. Current meds: asa, statin, b ami, rybelsus, losartan/hydrochlorothiazide A1c: 8.3% 03/31/25, 7.0% 11/06/2024 Increase metfromin to 1000mg BID Relevant Orders POCT glycosylated hemoglobin (Hb A1C) docked device (Completed) Cigarette nicotine dependence without complication The patient has been advised of the risks of continued smoking: stroke, DC, all forms of cancer, lung disease, and . At last appt we started chantix, is doing well Is down from 1.5ppd to 2 pack per week Was started on chantix: 11/06/24, can take it for 1more month Other Visit Diagnoses Essential (primary) hypertension Relevant Medications carvedilol (Coreg) 25 MG tablet amLODIPine (Norvasc) 10 MG tablet losartan-hydroCHLOROthiazide (Hyzaar) 100-25 MG tablet Essential hypertension Relevant Medications carvedilol (Coreg) 25 MG tablet amLODIPine (Norvasc) 10 MG tablet losartan-hydroCHLOROthiazide (Hyzaar) 100-25 MG tablet Generalized anxiety disorder Relevant Medications busPIRone (Buspar) 10 MG tablet Type 2 diabetes mellitus without complications (HCC) Relevant Medications semaglutide (Rybelsus) 14 MG tablet metFORMIN (Glucophage) 500 MG tablet Tobacco dependency Relevant Medications varenicline (Chantix Continuing Month Donny) 1 MG tablet * Brinda Howell NP - 03/31/2025 7:07 AM EDTAssociated Problem(s): Cigarette nicotine dependence without complication The patient has been advised of the risks of continued smoking: stroke, DC, all forms of cancer, lung disease, and . At last appt we started chantix, is doing well Is down from 1.5ppd to 2 pack per week Was started on chantix: 11/06/24, can take it for 1more month * Brinda Howell NP - 03/31/2025 7:07 AM EDTAssociated Problem(s): Mixed hyperlipidemia On statin therapy Check labs yearly and prn dose changes * Brinda Howell NP - 03/31/2025 7:06 AM EDTAssociated Problem(s): Type 2 diabetes mellitus with other specified complication (HCC) Check blood sugars daily, notify if <70 or >200. Take medications (pills or insulin) as directed. Monitor for s/s of hypoglycemia (sweaty, dizziness, nausea, vomiting, or shakiness). Watch for increase in thirst, urination, or appetite. Inspect feet frequently monitoring for open wounds , andalso recommend yearly eye exam. Pt should attempt to remain as physically active as chronic conditions allow, as well as trying to follow a diet low in carbohydrates, and simple sugars. Current meds: asa, statin, b ami, rybelsus, losartan/hydrochlorothiazide A1c: 8.3% 03/31/25, 7.0% 11/06/2024 Increase metfromin to 1000mg BID * Brinda Howell NP - 03/31/2025 7:06 AM EDTAssociated Problem(s): Coronary artery disease involving newtok coronary artery 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 angina pectoris Current medication: asa, statin, b ami Control risk factors * Brinda Howell NP - 03/31/2025 7:06 AM EDTAssociated Problem(s): Primary hypertension Please check blood pressure daily and record DASH diet Limit caffeine Take medication as directed Contact office if chest pain, pressure, dizziness, shortness of breath, swelling legs Recommend slow position changes Current meds: amlodipine, b ami, losartan/hydrochlorothiazide documented in this [facility]08-18-2025 Instructions* Patient Instructions* Brinda Howell NP - 03/31/2025 2:00 PM EDT Increase metformin: For week #1: take 2 pills with breakfast, and 1 pill with supper Week #2: 2 pills with breakfast and 2 pills with supper Cut back on sugary drinks and desserts documented in this [facility]06-16-2025 History of Present illness Narrative* Brinda Howell NP - 01/27/2025 3:00 PM EDT Images from the original note were not included. Omid Nix is a 49 y.o. male presents with chief complaint of Hypertension HPI: Doing well on chantix, however has been out for a few weeks, d/t pharmacy mess up, otherwise was down from 1ppd to 4-5 cigs daily Hypertension This is a chronic problem. The current episode started more than 1 year ago. The problem has been waxing and waning since onset. Pertinent negatives include no blurred vision, chest pain, orthopnea, palpitations, peripheral edema or shortness of breath. There are no associated agents to hypertension. Risk factors for coronary artery disease include diabetes mellitus and male gender. Past treatments include beta blockers, calcium channel blockers, angiotensin blockers and diuretics. The current treatment provides moderate improvement. There are no compliance problems. Hypertensive end-organ damage includes CAD/DC. There is no history of heart failure or PVD. SUBJECTIVE: MEDICATIONS: Current Outpatient Medications Medication Instructions [...] and wheezing. Cardiovascular: Negative for chest pain, palpitations, orthopnea and leg swelling. Gastrointestinal: Negative for abdominal distention, blood in stool, constipation and diarrhea. Genitourinary: Negative for decreased urine volume, difficulty urinating, dysuria and hematuria. Skin: Negative for color change. Neurological: Positive for numbness (L>R mostly toes, w some cramping). Negative for dizziness, tremors and seizures. Psychiatric/Behavioral: Negative for agitation, decreased concentration, hallucinations, self-injury and suicidal ideas. The patient is not nervous/anxious. Hematological: Negative for adenopathy. Does not bruise/bleed easily. Endocrine: Negative for cold intolerance, heat intolerance, polydipsia and polyuria. Allergic/Immunologic: Negative for environmental allergies and food allergies. PAST MEDICAL HISTORY Past Medical History: Diagnosis Date Anxiety CAD (coronary artery disease) ED (erectile dysfunction) HLD (hyperlipidemia) HTN (hypertension) Hypertension Smoking Type 2 diabetes mellitus (HCC) Past Surgical History: Procedure Laterality Date CAROTID STENT family history includes Coronary artery disease in his father and mother; Diabetes in his father; Hypertension in his mother; Seizures in his mother; Stroke in his father and mother. OBJECTIVE: Visit Vitals BP (!) 152/96 (BP Location: Left arm, Patient Position: Sitting, BP Cuff Size: Large adult) Pulse 74 Temp 98.3 F (Temporal) Resp 18 Wt 197 lb 6.4 oz SpO2 96% BMI 30.01 kg/m Smoking Status Every Day BSA 2.07 m Physical Exam Vitals and nursing note reviewed. Constitutional: Appearance: Normal appearance. HENT: Head: Normocephalic. Right Ear: External ear [...] Breath sounds: Normal breath sounds. Abdominal: General: Bowel sounds are normal. Palpations: Abdomen is soft. Musculoskeletal: Cervical back: Neck supple. Right lower leg: No edema. Left lower leg: No edema. Skin: General: Skin is warm and dry. Capillary Refill: Capillary refill takes 2 to 3 seconds. Neurological: General: No focal deficit present. Mental Status: He is alert. Psychiatric: Mood and Affect: Mood normal. Behavior: Behavior normal. Thought Content: Thought content normal. Judgment: Judgment normal. ASSESSMENT AND PLAN: Follow up in about 2 months (around 03/29/2025) for Recheck. Problem List Items Addressed This Visit Coronary artery disease involving newtok coronary artery 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 angina pectoris Current medication: asa, statin, b ami Control risk factors Primary hypertension - Primary Please check blood pressure daily and record DASH diet Limit caffeine Take medication as directed Contact office if chest pain, pressure, dizziness, shortness of breath, swelling legs Recommend slow position changes Current meds: amlodipine, b ami, losartan/hydrochlorothiazide Complaint with meds, check home reads daily, if consisently >140/90 contact office Type 2 diabetes mellitus with other specified complication (HCC) Check blood sugars daily, notify if <70 or >200. Take medications (pills or insulin) as directed. Monitor for s/s of hypoglycemia (sweaty, dizziness, nausea, vomiting, or shakiness). Watch for increase in thirst, urination, or appetite. Inspect feet frequently monitoring for open wounds , andalso recommend yearly eye exam. Pt should attempt to remain as physically active as chronic conditions allow, as well as trying to follow a diet low in carbohydrates, and simple sugars. Current meds: asa, statin, b ami, rybelsus, losartan/hydrochlorothiazide A1c: 7.0% 11/06/2024 Home reads 102-215, most around 160 Cigarette nicotine dependence without complication The patient has been advised of the risks of continued smoking: stroke, DC, all forms of cancer, lung disease, and . At last appt we started chantix, is doing well Other Visit Diagnoses Tobacco dependency Relevant Medications varenicline (Chantix Continuing Month ) 1 MG tablet * Brinda Howell NP - 01/27/2025 7:20 AM EDTAssociated Problem(s): Cigarette nicotine dependence without complication The patient has been advised of the risks of continued smoking: stroke, DC, all forms of cancer, lung disease, and . At last appt we started chantix, is doing well * Brinda Howell NP - 01/27/2025 7:20 AM EDTAssociated Problem(s): Type 2 diabetes mellitus with other specified complication (HCC) Check blood sugars daily, notify if <70 or >200. Take medications (pills or insulin) as directed. Monitor for s/s of hypoglycemia (sweaty, dizziness, nausea, vomiting, or shakiness). Watch for increase in thirst, urination, or appetite. Inspect feet frequently monitoring for open wounds , andalso recommend yearly eye exam. Pt should attempt to remain as physically active as chronic conditions allow, as well as trying to follow a diet low in carbohydrates, and simple sugars. Current meds: asa, statin, b ami, rybelsus, losartan/hydrochlorothiazide A1c: 7.0% 11/06/2024 Home reads 102-215, most around 160 * Brinda Howell NP - 01/27/2025 7:19 AM EDTAssociated Problem(s): Primary hypertension Please check blood pressure daily and record DASH diet Limit caffeine Take medication as directed Contact office if chest pain, pressure, dizziness, shortness of breath, swelling legs Recommend slow position changes Current meds: amlodipine, b ami, losartan/hydrochlorothiazide Complaint with meds, check home reads daily, if consisently >140/90 contact office * Brinda Howell NP - 01/27/2025 7:19 AM EDTAssociated Problem(s): Coronary artery disease involving newtok coronary artery 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 angina pectoris Current medication: asa, statin, b ami Control risk factors documented in this encounterResearch Medical [id number] Instructions* Patient Instructions* Brinda Howell NP - 01/27/2025 3:00 PM EDT No med dose changes documented in this encounterResearch Medical [id number] History of Present illness Narrative* Brinda Howell NP - 11/27/2024 3:00 PM EDT Images from the original note were not included. Omid Nix is a 49 y.o. male presents with chief complaint of Follow-up (3w f/up) HPI: Is doing well on chantix, for about few weeks, and is smoking less, no side effects noted Hypertension This is a chronic problem. The current episode started more than 1 year ago. The problem has been gradually improving since onset. The problem is controlled. Pertinent negatives include no blurred vision, chest pain, peripheral edema or shortness of breath. There are no associated agents to hypertension. Risk factors for coronary artery disease include dyslipidemia, diabetes mellitus and smoking/tobacco exposure. Past treatments include angiotensin blockers, beta blockers and diuretics. The current treatment provides significant improvement. There are no compliance problems. Hypertensive end-organ damage includes CAD/DC. SUBJECTIVE: MEDICATIONS: Current Outpatient Medications Medication Instructions amLODIPine (NORVASC) 10 mg, Oral, Daily Aspirin Low Dose 81 MG chewable tablet CHEW AND SWALLOW 1 TABLET DAILY atorvastatin (LIPITOR) 80 mg, Nightly busPIRone (BUSPAR) 10 mg, Oral, 2 times daily carvedilol (COREG) 25 mg, Oral, 2 times daily Continuous Blood Gluc Sensor (FreeStyle Ingrid 2 Sensor) misc 1 Units, Daily dapagliflozin (FARXIGA) 5 mg, Oral, Daily losartan-hydroCHLOROthiazide (Hyzaar) 100-25 MG tablet 1 [...] daily, Take with full glass of water. Varenicline Tartrate, Starter, 0.5 MG X 11 & 1 MG X 42 tablet therapy pack 1 tablet, Oral, Daily, TAKE 1 TABLET BY MOUTH EVERY DAY DIRECTED ON PACKAGE ALLERGIES: Allergies Allergen Reactions Codeine Other REVIEW OF SYMPTOMS: Review of Systems Constitutional: Negative for activity change, appetite change and unexpected weight change. HENT: Negative for ear pain, nosebleeds, sneezing, trouble swallowing and voice change. Eyes: Negative for blurred vision, pain, discharge and visual disturbance. Respiratory: Negative for apnea, chest tightness, shortness of breath and wheezing. Cardiovascular: Negative for chest pain and leg swelling. Gastrointestinal: Negative for abdominal distention, blood in stool, constipation and diarrhea. Genitourinary: Negative for decreased urine volume, difficulty urinating, dysuria and hematuria. Skin: Negative for color change. Neurological: Negative for dizziness, tremors and seizures. Psychiatric/Behavioral: Negative for agitation, decreased concentration, hallucinations, self-injury and suicidal ideas. The patient is not nervous/anxious. Hematological: Negative for adenopathy. Does not bruise/bleed easily. Endocrine: Negative for cold intolerance, heat intolerance, polydipsia and polyuria. Allergic/Immunologic: Negative for environmental allergies and food allergies. PAST MEDICAL HISTORY Past Medical History: Diagnosis Date Anxiety CAD (coronary artery disease) ([facility]) ED (erectile dysfunction) HLD (hyperlipidemia) ([facility]) HTN (hypertension) ([facility]) Hypertension ([facility]) Smoking Type 2 diabetes mellitus Past Surgical History: Procedure Laterality Date CAROTID STENT family history includes Coronary artery disease in his father and mother; Diabetes in his father; Hypertension in his mother; Seizures in his mother; Stroke in his father and mother. OBJECTIVE: Visit Vitals BP 140/82 Pulse 64 Temp 97.8 F Resp 18 Ht 5' 8 Wt 196 lb SpO2 98% BMI 29.80 kg/m Smoking Status Every Day BSA 2.07 m Physical Exam Vitals and nursing note reviewed. Constitutional: Appearance: Normal appearance. HENT: Head: Normocephalic. Right Ear: External ear normal. Left Ear: External ear normal. Nose: Nose normal. Mouth/Throat: Mouth: Mucous membranes are moist. Pharynx: Oropharynx is clear. Eyes: Extraocular Movements: Extraocular movements intact. Conjunctiva/sclera: Conjunctivae normal. Cardiovascular: Rate and Rhythm: Normal rate and regular rhythm. Pulses: Normal pulses. Heart sounds: Normal heart sounds. Pulmonary: Effort: Pulmonary effort is normal. Breath sounds: Normal breath sounds. Musculoskeletal: Cervical back: Neck supple. Skin: General: Skin is warm and dry. Capillary Refill: Capillary refill takes 2 to 3 seconds. Neurological: General: No focal deficit present. Mental Status: He is alert. Psychiatric: Mood and Affect: Mood normal. Behavior: Behavior normal. Thought Content: Thought content normal. Judgment: Judgment normal. ASSESSMENT AND PLAN: No follow-ups on file. Problem List Items Addressed This Visit Primary hypertension (CMS/HCC) - Primary Please check blood pressure daily and record DASH diet Limit caffeine Take medication as directed Contact office if chest pain, pressure, dizziness, shortness of breath, swelling legs Recommend slow position changes Current meds: amlodipine, b ami, losartan/hydrochlorothiazide Cigarette nicotine dependence without complication The patient has been advised of the risks of continued smoking: stroke, DC, all forms of cancer, lung disease, and . At last appt we started chantix, is doing well * Brinda Howell NP - 11/27/2024 6:53 AM EDTAssociated Problem(s): Cigarette nicotine dependence without complication The patient has been advised of the risks of continued smoking: stroke, DC, all forms of cancer, lung disease, and . At last appt we started chantix, is doing well * Brinda Howell NP - 11/27/2024 6:52 AM EDTAssociated Problem(s): Primary hypertension (CMS/HCC) Please check blood pressure daily and record DASH diet Limit caffeine Take medication as directed Contact office if chest pain, pressure, dizziness, shortness of breath, swelling legs Recommend slow position changes Current meds: amlodipine, b ami, losartan/hydrochlorothiazide documented in this encounterResearch Medical [id number] History of Present illness Narrative* SHERIDAN FISCHER - 11/06/2024 2:40 PM EDT Pt uses freestyle ingrid 2 sensor, pt has to put [...] currently smokes over a pack a day, * Brinda Howell NP - 11/06/2024 2:40 PM EDT Images from the original note were not [...] disease and peripheral neuropathy. Pertinent negatives for d iabetic complications include no CVA or nephropathy. Risk [...] no compliance problems. Hypertensive end-organ damage includes CAD/DC. There is no history of CVA or [...] Diagnosis Date Anxiety CAD (coronary artery disease) ([facility]) ED (erectile dysfunction) HLD (hyperlipidemia) ([facility]) HTN (hypertension) ([facility] Hypertension ([facility]) Smoking Type 2 diabetes mellitus ([facility]) Past Surgical History: Procedure Laterality Date CAROTID [...] Addressed This Visit Coronary artery disease involving newtok coronary artery 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 angina pectoris (CMS/HCC) Current medication: [...] feet frequently monitoring for open wounds , andalso recommend yearly eye exam. Pt should attempt [...] of the risks of continued smoking: stroke, DC, all forms of cancer, lung disease, and . Options for quitting smoking include: cold turkey, hypnosis, acupuncture, nicotine replacement meds(gum, lozenges, and patches), Buproprion, and Varenicline. At this time pt is encouraged to evaluate their goals for wanting to quit smoking, and reach out toprovider when ready to start this process Has [...] 42 tablet therapy pack varenicline (Chantix Continuing Month ) 1 MG tablet * Brinda Howell NP - 11/06/2024 6:54 AM EDTAssociated Problem(s): Cigarette nicotine dependence without complication The patient has been advised of the risks of continued smoking: stroke, DC, all forms of cancer, lung disease, and . Options for quitting smoking include: cold turkey, hypnosis, acupuncture, nicotine replacement meds(gum, lozenges, and patches), Buproprion, and Varenicline. At this time pt is encouraged to evaluate their goals for wanting to quit smoking, and reach out toprovider when ready to start this process Has been prescribed chantix, got start month then nothing, will restart chantix * Brinda Howell NP - 11/06/2024 6:54 AM EDTAssociated Problem(s): Mixed hyperlipidemia (CMS/HCC) On statin therapy Check labs yearly and prn dose changes * Brinda Howell NP - 11/06/2024 6:53 AM EDTAssociated Problem(s): Type 2 diabetes mellitus with other specified complication ([facility]) Check blood sugars daily, notify if <70 or >200. Take medications (pills or insulin) as directed. Monitor for s/s of hypoglycemia (sweaty, dizziness, nausea, vomiting, or shakiness). Watch for increase in thirst, urination, or appetite. Inspect feet frequently monitoring for open wounds , andalso recommend yearly eye exam. Pt should attempt to remain as physically active as chronic conditions allow, as well as trying to follow a diet low in carbohydrates, and simple sugars. Current meds: asa, statin, b ami, rybelsus, losartan/hydrochlorothiazide A1c: 7.0% Add farxiga at 5mg daily At next appt bring sensor * Brinda Howell NP - 11/06/2024 6:52 AM EDTAssociated Problem(s): Primary hypertension ([facility]) Please check blood pressure daily and record DASH diet Limit caffeine Take medication as directed Contact office if chest pain, pressure, dizziness, shortness of breath, swelling legs Recommend slow position changes Current meds: amlodipine, b ami, losartan/hydrochlorothiazide Restart arb/hydrochlorothiazide Fu in 3 weeks for BP check * Brinda Howell NP - 11/06/2024 6:52 AM EDTAssociated Problem(s): Coronary artery disease involving newtok coronary artery 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 angina pectoris ([facility]) Current medication: asa, statin, b ami Control risk factors documented in this [facility]03-26-2025 Instructions* Patient Instructions* Brinda Howell NP - 11/06/2024 2:40 PM EDT Start chantix, if worsening mood, thoughts of suicide or depression, call office Restart the losartan/hydrochlorothiazide medication For diabetes: add farxiga at 5mg A1c 7% At follow up appt bring your sensor Get labs in about 2 weeks documented in this encounterResearch Medical [id number] History of Present illness Narrative* Arcelia Pope NP - 07/24/2024 2:18 PM ESTAssociated Problem(s): Diabetes mellitus type II, non insulin dependent ([facility]) Taking Rybelsus 14 mg was increased a [...] trying to improve diet and make modifications. * Arcelia Pope NP - 07/24/2024 2:18 PM ESTAssociated Problem(s): Mixed hyperlipidemia (CMS/HCC) Currently taking Atrovastatin 80mg Denies any myalgias. Most recent lipid panel Triglycerides 430. Added Belfry 3 2gm BID Recheck in 6 months.. * Arcelia Pope NP - 07/24/2024 2:17 PM ESTAssociated Problem(s): Primary hypertension (CMS/HCC) Currently taking Amlodipine 10mg Losartan-hydrochlorothiazide 100-25mg Carvedilol 25mg Checks BP at home; Averages are 140's. Work up for secondary HTN - negative. Denies orthostatic changes, dizziness, cough, shortness of breath, swelling in extremities. Continue current regimen. Given BP log, advised pt to record BP and bring log back with them to next visit. * Arcelia Pope NP - 07/24/2024 2:00 PM EST Images from the original note were not [...] Most recent lipid panel Triglycerides 430. Added Belfry 3 2gm BID Recheck in 6 months.. [...] Neurological: Negative for dizziness, tremors, syncope, weakness, light- headedness and headaches. Psychiatric/Behavioral: Negative for decreased concentration and suicidal ideas. The patient is notnervous/anxious. Hematological: Does not bruise/bleed easily. Endocrine: Negative [...] Most recent lipid panel Triglycerides 430. Added Belfry 3 2gm BID Recheck in 6 months.. [...] (Glucophage) 500 MG tablet documented in this encounterResearch Medical [id number] History of Present illness Narrative* Arcelia Pope NP - 04/24/2024 10:25 AM EDTAssociated Problem(s): Tobacco dependency Patient counseled on smoking/tobacco [...] Smoking/Tobacco use counseling. Will start on chantix. * Arcelia Pope NP - 04/24/2024 10:21 AM EDTAssociated Problem(s): Diabetes mellitus type II, non insulin [...] lot of sweets. Increased Rybelsus to 14mg * Arcelia Pope NP - 04/24/2024 10:20 AM EDTAssociated Problem(s): Mixed hyperlipidemia (CMS/HCC) Currently taking Atrovastatin 80mg Denies any myalgias. Most recent lipid panel Triglycerides 430. Added Belfry 3 2gm BID Recheck in 6 months.. * Arcelia Pope NP - 04/24/2024 10:06 AM EDTAssociated Problem(s): Primary hypertension (CMS/HCC) Currently taking Amlodipine 10mg Losartan-hydrochlorothiazide 100-25mg Carvedilol 25mg Checks BP at home; Averages are 140's. Work up for secondary HTN - negative. Denies orthostatic changes, dizziness, cough, shortness of breath, swelling in extremities. Continue current regimen. Given BP log, advised pt to record BP and bring log back with them to next visit. * Arcelia Pope NP - 04/24/2024 10:00 AM EDT Images from the original note were not [...] Most recent lipid panel Triglycerides 430. Added Belfry 3 2gm BID Recheck in 6 months.. [...] Neurological: Negative for dizziness, tremors, syncope, weakness, light- headedness and headaches. Psychiatric/Behavioral: Negative for decreased concentration and suicidal ideas. The patient is notnervous/anxious. Hematological: Does not bruise/bleed easily. Endocrine: Negative [...] Most recent lipid panel Triglycerides 430. Added Belfry 3 2gm BID Recheck in 6 months.. [...] panel CBC and differential documented in this encounterResearch Medical [id number] Instructions* Patient Instructions* Arcelia Pope NP - 04/24/2024 10:00 AM [...] to include 150 minutes per week of moderate- intensity, and 75 minutes per week of vigorous aerobic activity Education: Check blood sugars daily, notify if <70 or >200. Take medications (pills or insulin) as directed. Monitor for s/s of hypoglycemia (sweaty, dizziness, nausea, vomiting, or shakiness). Watch for increase in thirst, urination, or appetite. Inspect feet frequently monitoring for open wounds , andalso recommend yearly eye exam. Pt should attempt to remain as physically active as chronic conditions allow, as well as trying to follow a diet low in carbohydrates, and simple sugars. Diet: Eat three meals per day. Breakfast, lunch, and dinner. Avoid snacking. Avoid eating after 5/6pm. Daily protein GOAL 35% of your intake; 30g per meal. Daily calorie GOAL 1,800-2,000 per day. Consider tracking your food intake on [employer] or LoseIt Water: Increase water intake; GOAL [...] FRIED FOODS, FATTY FOODS!!! documented in this encounterResearch Medical [id number] NoteThis report has been cancelled.[facility]05-05-2023 NoteThis report has been cancelled.[facility]11-21-2022 NoteUT Cardiology - [facility] Subjective Omid Nix is a 46 y.o. year old male patient being seen for 2 mo follow up CAD and hypertension. Had labs this morning. Lisinopril was increased to 30mg at last apt in Apr 2022 by Sherry Donohue CNP. Says he's cut back to about 6-7 cigarettes daily. Denies chest pain and SOB. Patient Active Problem List Diagnosis Coronary artery disease involving newtok coronary artery 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 angina pectoris Primary hypertension Mixed hyperlipidemia Status post insertion of drug eluting coronary artery stent History of myocardial infarction Diabetes mellitus type II, non insulin dependent (CMS/HCC) Family History Problem Relation Name Age of [...] (3 mL) pen, INJEC (more content not included)...[facility]08-20-2022 NoteMR#: [id number] I [facility] Pt. Name: Omid Nix Дмитрий Admitted: 03/28/2022 Discharged: 04/02/2022 Date of : 1975 Physician: Kirk Riggs MD DISCHARGE SUMMARY DISCHARGING PHYSICIAN: Kirk Riggs MD PRIMARY CARE PHYSICIAN: Nohemi Agarwal M.D. DISCHARGE DIAGNOSES: 1. Zmo-NE-[id number] myocardial infarction type 1, status post PCI [...] day, noncompliant with antihypertensives medications, presented to [facility] after developing chest tightness radiating to his left arm associated with shortness of breath and diaphoresis to [facility] where he was found to have [id number] DC with high-intensity troponin of 279. He was started on nitroglycerin and heparin drip and was transferred to [facility] for further evaluation and management. He admitted [...] by: Kirk Riggs MD 04/04/2022 07:25 A Kirk Riggs MD I personally saw this patient on the day of the encounter, performed the madden portion(s) of the service and participated in the management and confirm the resident's documentation. Please note there may be an additional personal documentation from me. Date Dict: 04/02/2022/03:38 P/Edilson Wagner CNP Date Trans: 04/02/2022 07:27 P/amenao [id number] cc: Nohemi Agarwal M.D. [address] [place] [address]JieDayton Children's HospitalEvaluation note* Diagnosis Tobacco dependency- Primary Tobacco use disorder Wellness examination Coronary artery disease involving newtok coronary artery 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 angina pectoris (CMS/HCC) Other male [...] complication, not stated as uncontrolled Mixed hyperlipidemia ([facility]/HCC) Mixed hyperlipidemia Type 2 diabetes mellitus without complications ([facility]) Tobacco dependency Tobacco use disorder Tobacco dependency Tobacco use disorder documented in this encounter [facility]* Diagnosis Tobacco dependency- Primary Tobacco use disorder Wellness examination Coronary artery disease involving [place] coronary artery 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 angina pectoris ([facility]) Other male erectile dysfunction Primary hypertension ([facility]) Unspecified essential hypertension Diabetes mellitus type II, non insulin dependent ([facility]) Type II or unspecified type diabetes mellitus without mention of complication, not stated as uncontrolled Mixed hyperlipidemia ([facility]) Mixed hyperlipidemia Status post insertion of drug eluting coronary artery stent- Primary Diabetes mellitus type II, non insulin dependent ([facility]) Type II or unspecified type diabetes mellitus without mention of complication, not stated as uncontrolled Mixed hyperlipidemia ([facility]) Mixed hyperlipidemia Tobacco dependency Tobacco use disorder Primary hypertension ([facility]) Unspecified essential hypertension Primary hypertension ([facility])- Primary Unspecified essential hypertension Diabetes mellitus type II, non insulin dependent ([facility]) Type II or unspecified type diabetes mellitus without mention of complication, not stated as uncontrolled Mixed hyperlipidemia ([facility]) Mixed hyperlipidemia Type 2 diabetes mellitus without complications ([facility] Tobacco dependency Tobacco use disorder Essential (primary) hypertension ([facility] Unspecified essential hypertension Essential hypertension ([facility]) Unspecified essential hypertension documented in this encounter [facility]* Diagnosis Tobacco dependency- Primary Tobacco use disorder Wellness examination Coronary artery disease involving [place] coronary artery 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 angina pectoris ([facility]) Other male erectile dysfunction Primary hypertension ([facility]) Unspecified essential hypertension Diabetes mellitus type II, non insulin dependent ([facility]) Type II or unspecified type diabetes mellitus without mention of complication, not stated as uncontrolled Mixed hyperlipidemia ([facility]) Mixed hyperlipidemia Status post insertion of drug eluting coronary artery stent- Primary Diabetes mellitus type II, non insulin dependent ([facility]/HCC) Type II or unspecified type diabetes mellitus without mention of complication, not stated as uncontrolled Mixed hyperlipidemia ([facility]) Mixed hyperlipidemia Tobacco dependency Tobacco use disorder Primary hypertension ([facility] Unspecified essential hypertension Primary hypertension ([facility])- Primary Unspecified essential hypertension Diabetes mellitus type II, non insulin dependent ([facility]) Type II or unspecified type diabetes mellitus without mention of complication, not stated as uncontrolled Mixed hyperlipidemia ([facility]) Mixed hyperlipidemia Type 2 diabetes mellitus without complications ([facility]) Tobacco dependency Tobacco use disorder Type 2 diabetes mellitus without complications ([facility]) documented in this encounter [facility]* Diagnosis Tobacco dependency- Primary Tobacco use disorder Wellness examination Coronary artery disease involving [place] coronary artery 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 angina pectoris ([facility]) Other male erectile dysfunction Primary hypertension ([facility]) Unspecified essential hypertension Diabetes mellitus type II, non insulin dependent ([facility]) Type II or unspecified type diabetes mellitus without mention of complication, not stated as uncontrolled Mixed hyperlipidemia ([facility]) Mixed hyperlipidemia Status post insertion of drug eluting coronary artery stent- Primary Diabetes mellitus type II, non insulin dependent ([facility]) Type II or unspecified type diabetes mellitus without mention of complication, not stated as uncontrolled Mixed hyperlipidemia ([facility]) Mixed hyperlipidemia Tobacco dependency Tobacco use disorder Primary hypertension ([facility] Unspecified essential hypertension Primary hypertension ([facility])- Primary Unspecified essential hypertension Diabetes mellitus type II, non insulin dependent ([facility]) Type II or unspecified type diabetes mellitus without mention of complication, not stated as uncontrolled Mixed hyperlipidemia ([facility]) Mixed hyperlipidemia Type 2 diabetes mellitus without complications ([facility] Tobacco dependency Tobacco use disorder Mixed hyperlipidemia ([facility])- Primary Mixed hyperlipidemia Diabetes mellitus type II, non insulin dependent ([facility]) Type II or unspecified type diabetes mellitus without mention of complication, not stated as uncontrolled Primary hypertension ([facility] Unspecified essential hypertension Type 2 diabetes mellitus without complications ([facility] Tobacco dependency Tobacco use disorder documented in this encounter [facility]* Diagnosis Generalized anxiety disorder ([facility] Generalized anxiety disorder documented in this encounter [facility]* Diagnosis Primary hypertension ([facility])- Primary Unspecified essential hypertension Diabetes mellitus type II, non insulin dependent ([facility]) Type II or unspecified type diabetes mellitus without mention of complication, not stated as uncontrolled Mixed hyperlipidemia ([facility]) Mixed hyperlipidemia Type 2 diabetes mellitus without complications ([facility]) Tobacco dependency Tobacco use disorder documented in this encounter [facility]* Diagnosis Tobacco dependency- Primary Tobacco use disorder Wellness examination Coronary artery disease involving [place] coronary artery 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 angina pectoris ([facility]) Other male erectile dysfunction Primary hypertension ([facility]) Unspecified essential hypertension Diabetes mellitus type II, non insulin dependent ([facility]/HCC) Type II or unspecified type diabetes mellitus without mention of complication, not stated as uncontrolled Mixed hyperlipidemia ([facility]) Mixed hyperlipidemia Status post insertion of drug eluting coronary artery stent- Primary Diabetes mellitus type II, non insulin dependent ([facility]/HCC) Type II or unspecified type diabetes mellitus without mention of complication, not stated as uncontrolled Mixed hyperlipidemia ([facility]) Mixed hyperlipidemia Tobacco dependency Tobacco use disorder Primary hypertension ([facility] Unspecified essential hypertension Primary hypertension ([facility])- Primary Unspecified essential hypertension Diabetes mellitus type II, non insulin dependent ([facility]) Type II or unspecified type diabetes mellitus without mention of complication, not stated as uncontrolled Mixed hyperlipidemia ([facility]) Mixed hyperlipidemia Type 2 diabetes mellitus without complications ([facility] Tobacco dependency Tobacco use disorder Mixed hyperlipidemia ([facility])- Primary Mixed hyperlipidemia Diabetes mellitus type II, non insulin dependent ([facility]) Type II or unspecified type diabetes mellitus without mention of complication, not stated as uncontrolled Primary hypertension ([facility]) Unspecified essential hypertension Type 2 diabetes mellitus without complications ([facility]) Tobacco dependency Tobacco use disorder Mixed hyperlipidemia ([facility]) Mixed hyperlipidemia documented in this encounter [facility]* Diagnosis Tobacco dependency- Primary Tobacco use disorder Wellness examination Coronary artery disease involving [place] coronary artery 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 angina pectoris ([facility]) Other male erectile dysfunction Primary hypertension ([facility]) Unspecified essential hypertension Diabetes mellitus type II, non insulin dependent ([facility]) Type II or unspecified type diabetes mellitus without mention of complication, not stated as uncontrolled Mixed hyperlipidemia ([facility]) Mixed hyperlipidemia Status post insertion of drug eluting coronary artery stent- Primary Diabetes mellitus type II, non insulin dependent ([facility]) Type II or unspecified type diabetes mellitus without mention of complication, not stated as uncontrolled Mixed hyperlipidemia ([facility]) Mixed hyperlipidemia Tobacco dependency Tobacco use disorder Primary hypertension ([facility] Unspecified essential hypertension Primary hypertension ([facility])- Primary Unspecified essential hypertension Diabetes mellitus type II, non insulin dependent ([facility]) Type II or unspecified type diabetes mellitus without mention of complication, not stated as uncontrolled Mixed hyperlipidemia ([facility]) Mixed hyperlipidemia Type 2 diabetes mellitus without complications ([facility] Tobacco dependency Tobacco use disorder Mixed hyperlipidemia ([facility])- Primary Mixed hyperlipidemia Diabetes mellitus type II, non insulin dependent ([facility]) Type II or unspecified type diabetes mellitus without mention of complication, not stated as uncontrolled Primary hypertension ([facility]) Unspecified essential hypertension Type 2 diabetes mellitus without complications ([facility]) Tobacco dependency Tobacco use disorder Type 2 diabetes mellitus with other specified complication ([facility])- Primary Pure hyperglyceridemia ([facility] Pure hyperglyceridemia Coronary artery disease involving [place] coronary artery 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 angina pectoris ([facility] Primary hypertension ([facility] Unspecified essential hypertension Mixed hyperlipidemia ([facility] Mixed hyperlipidemia Cigarette nicotine dependence without complication Essential (primary) hypertension ([facility] Unspecified essential hypertension Essential hypertension ([facility]) Unspecified essential hypertension Tobacco dependency Tobacco use disorder documented in this encounter [facility]* Diagnosis Tobacco dependency- Primary Tobacco use disorder Wellness examination Coronary artery disease involving [place] coronary artery 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 angina pectoris ([facility]) Other male erectile dysfunction Primary hypertension ([facility]) Unspecified essential hypertension Diabetes mellitus type II, non insulin dependent ([facility]) Type II or unspecified type diabetes mellitus without mention of complication, not stated as uncontrolled Mixed hyperlipidemia ([facility]) Mixed hyperlipidemia Status post insertion of drug eluting coronary artery stent- Primary Diabetes mellitus type II, non insulin dependent ([facility]) Type II or unspecified type diabetes mellitus without mention of complication, not stated as uncontrolled Mixed hyperlipidemia ([facility]) Mixed hyperlipidemia Tobacco dependency Tobacco use disorder Primary hypertension ([facility] Unspecified essential hypertension Primary hypertension ([facility])- Primary Unspecified essential hypertension Diabetes mellitus type II, non insulin dependent ([facility]) Type II or unspecified type diabetes mellitus without mention of complication, not stated as uncontrolled Mixed hyperlipidemia ([facility] Mixed hyperlipidemia Type 2 diabetes mellitus without complications Tobacco dependency Tobacco use disorder Mixed hyperlipidemia ([facility])- Primary Mixed hyperlipidemia Diabetes mellitus type II, non insulin dependent ([facility]) Type II or unspecified type diabetes mellitus without mention of complication, not stated as uncontrolled Primary hypertension ([facility]) Unspecified essential hypertension Type 2 diabetes mellitus without complications Tobacco dependency Tobacco use disorder Type 2 diabetes mellitus with other specified complication- Primary Pure hyperglyceridemia ([facility]) Pure hyperglyceridemia Coronary artery disease involving [place] coronary artery 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 angina pectoris ([facility] Primary hypertension ([facility] Unspecified essential hypertension Mixed hyperlipidemia ([facility]) Mixed hyperlipidemia Cigarette nicotine dependence without complication Essential (primary) hypertension (CMS/HCC) Unspecified essential hypertension Essential hypertension (CMS/HCC) Unspecified essential hypertension Tobacco dependency Tobacco use disorder Primary hypertension (CMS/HCC)- Primary Unspecified essential hypertension Cigarette nicotine dependence without complication documented in this encounter [facility]* Diagnosis Tobacco dependency- Primary Tobacco use disorder Wellness examination Coronary artery disease involving [place] coronary artery 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 angina pectoris ([facility]/HCC) Other male erectile dysfunction Primary hypertension ([facility]) Unspecified essential hypertension Diabetes mellitus type II, non insulin dependent (CMS/HCC) Type II or unspecified type diabetes mellitus without mention of complication, not stated as uncontrolled Mixed hyperlipidemia ([facility]) Mixed hyperlipidemia Status post insertion of drug eluting coronary artery stent- Primary Diabetes mellitus type II, non insulin dependent ([facility]) Type II or unspecified type diabetes mellitus without mention of complication, not stated as uncontrolled Mixed hyperlipidemia ([facility]) Mixed hyperlipidemia Tobacco dependency Tobacco use disorder Primary hypertension ([facility] Unspecified essential hypertension Primary hypertension ([facility])- Primary Unspecified essential hypertension Diabetes mellitus type II, non insulin dependent ([facility]) Type II or unspecified type diabetes mellitus without mention of complication, not stated as uncontrolled Mixed hyperlipidemia ([facility]) Mixed hyperlipidemia Type 2 diabetes mellitus without complications Tobacco dependency Tobacco use disorder Mixed hyperlipidemia ([facility])- Primary Mixed hyperlipidemia Diabetes mellitus type II, non insulin dependent ([facility]) Type II or unspecified type diabetes mellitus without mention of complication, not stated as uncontrolled Primary hypertension ([facility]) Unspecified essential hypertension Type 2 diabetes mellitus without complications Tobacco dependency Tobacco use disorder Type 2 diabetes mellitus with other specified complication- Primary Pure hyperglyceridemia ([facility]) Pure hyperglyceridemia Coronary artery disease involving [place] coronary artery 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 angina pectoris (CMS/HCC) Primary hypertension ([facility]/HCC) Unspecified essential hypertension Mixed hyperlipidemia ([facility]/HCC) Mixed hyperlipidemia Cigarette nicotine dependence without complication Essential (primary) hypertension (CMS/HCC) Unspecified essential hypertension Essential hypertension ([facility]/HCC) Unspecified essential hypertension Tobacco dependency Tobacco use disorder Primary hypertension ([facility]/HCC)- Primary Unspecified essential hypertension Cigarette nicotine dependence without complication Generalized anxiety disorder ([facility]) Generalized anxiety disorder documented in this encounter [facility]* Diagnosis Tobacco dependency- Primary Tobacco use disorder Wellness examination Coronary artery disease involving newtok coronary artery 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 angina pectoris ([facility]) Other male erectile dysfunction Primary hypertension ([facility]) Unspecified essential hypertension Diabetes mellitus type II, non insulin dependent ([facility]) Type II or unspecified type diabetes mellitus without mention of complication, not stated as uncontrolled Mixed hyperlipidemia ([facility]) Mixed hyperlipidemia Status post insertion of drug eluting coronary artery stent- Primary Diabetes mellitus type II, non insulin dependent ([facility]) Type II or unspecified type diabetes mellitus without mention of complication, not stated as uncontrolled Mixed [place] Mixed hyperlipidemia Tobacco dependency Tobacco use disorder Primary hypertension [place] Unspecified essential hypertension Primary [place] Primary Unspecified essential hypertension Diabetes mellitus type II, non insulin dependent [place] Type II or unspecified type diabetes mellitus without mention of complication, not stated as uncontrolled Mixed hyperlipidemia [place] Mixed hyperlipidemia Type 2 diabetes mellitus without complications Tobacco dependency Tobacco use disorder Mixed hyperlipidemia [place] Primary Mixed hyperlipidemia Diabetes mellitus type II, non insulin dependent [place] Type II or unspecified type diabetes mellitus without mention of complication, not stated as uncontrolled Primary hypertension [place] Unspecified essential hypertension Type 2 diabetes mellitus without complications Tobacco dependency Tobacco use disorder Type 2 diabetes mellitus with other specified complication- Primary Pure hyperglyceridemia ([facility]) Pure hyperglyceridemia Coronary artery disease involving newtok coronary artery 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 angina pectoris [place] Primary hypertension ([facility] Unspecified essential hypertension Mixed hyperlipidemia ([facility]) Mixed hyperlipidemia Cigarette nicotine dependence without complication Essential (primary) hypertension ([facility]) Unspecified essential hypertension Essential hypertension ([facility]) Unspecified essential hypertension Tobacco dependency Tobacco use disorder Primary hypertension ([facility])- Primary Unspecified essential hypertension Cigarette nicotine dependence without complication Tobacco dependency Tobacco use disorder documented in this encounter [facility]* Diagnosis Tobacco dependency- Primary Tobacco use disorder Wellness examination Coronary artery disease involving newtok coronary artery 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 angina pectoris Other male erectile dysfunction Primary hypertension Unspecified essential hypertension Diabetes mellitus type II, non insulin dependent (HCC) Type II or unspecified type diabetes mellitus without mention of complication, not stated as uncontrolled Mixed hyperlipidemia Mixed hyperlipidemia Status post insertion of drug eluting coronary artery stent- Primary Diabetes mellitus type II, non insulin dependent (HCC) Type II or unspecified type diabetes mellitus without mention of complication, not stated as uncontrolled Mixed hyperlipidemia Mixed hyperlipidemia Tobacco dependency Tobacco use disorder Primary hypertension Unspecified essential hypertension Primary hypertension- Primary Unspecified essential hypertension Diabetes mellitus type II, non insulin dependent (HCC) Type II or unspecified type diabetes mellitus without mention of complication, not stated as uncontrolled Mixed hyperlipidemia Mixed hyperlipidemia Type 2 diabetes mellitus without complications (HCC) Tobacco dependency Tobacco use disorder Mixed hyperlipidemia- Primary Mixed hyperlipidemia Diabetes mellitus type II, non insulin dependent (HCC) Type II or unspecified type diabetes mellitus without mention of complication, not stated as uncontrolled Primary hypertension Unspecified essential hypertension Type 2 diabetes mellitus without complications (HCC) Tobacco dependency Tobacco use disorder Type 2 diabetes mellitus with other specified complication (HCC)- Primary Pure hyperglyceridemia Pure hyperglyceridemia Coronary artery disease involving newtok coronary artery 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 angina pectoris Primary hypertension Unspecified essential hypertension Mixed hyperlipidemia Mixed hyperlipidemia Cigarette nicotine dependence without complication Essential (primary) hypertension Unspecified essential hypertension Essential hypertension Unspecified essential hypertension Tobacco dependency Tobacco use disorder Primary hypertension- Primary Unspecified essential hypertension Cigarette nicotine dependence without complication Primary hypertension- Primary Unspecified essential hypertension Coronary artery disease involving newtok coronary artery 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 angina pectoris Type 2 diabetes mellitus with other specified complication, without long-term current use of insulin (HCC) Cigarette nicotine dependence without complication Tobacco dependency Tobacco use disorder documented in this encounter [facility]* Diagnosis Tobacco dependency- Primary Tobacco use disorder Wellness examination Coronary artery disease involving newtok coronary artery 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 angina pectoris Other male erectile dysfunction Primary hypertension Unspecified essential hypertension Diabetes mellitus type II, non insulin dependent (HCC) Type II or unspecified type diabetes mellitus without mention of complication, not stated as uncontrolled Mixed hyperlipidemia Mixed hyperlipidemia Status post insertion of drug eluting coronary artery stent- Primary Diabetes mellitus type II, non insulin dependent (HCC) Type II or unspecified type diabetes mellitus without mention of complication, not stated as uncontrolled Mixed hyperlipidemia Mixed hyperlipidemia Tobacco dependency Tobacco use disorder Primary hypertension Unspecified essential hypertension Primary hypertension- Primary Unspecified essential hypertension Diabetes mellitus type II, non insulin dependent (HCC) Type II or unspecified type diabetes mellitus without mention of complication, not stated as uncontrolled Mixed hyperlipidemia Mixed hyperlipidemia Type 2 diabetes mellitus without complications (HCC) Tobacco dependency Tobacco use disorder Mixed hyperlipidemia- Primary Mixed hyperlipidemia Diabetes mellitus type II, non insulin dependent (HCC) Type II or unspecified type diabetes mellitus without mention of complication, not stated as uncontrolled Primary hypertension Unspecified essential hypertension Type 2 diabetes mellitus without complications (HCC) Tobacco dependency Tobacco use disorder Type 2 diabetes mellitus with other specified complication (HCC)- Primary Pure hyperglyceridemia Pure hyperglyceridemia Coronary artery disease involving newtok coronary artery 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 angina pectoris Primary hypertension Unspecified essential hypertension Mixed hyperlipidemia Mixed hyperlipidemia Cigarette nicotine dependence without complication Essential (primary) hypertension Unspecified essential hypertension Essential hypertension Unspecified essential hypertension Tobacco dependency Tobacco use disorder Primary hypertension- Primary Unspecified essential hypertension Cigarette nicotine dependence without complication Primary hypertension- Primary Unspecified essential hypertension Coronary artery disease involving newtok coronary artery 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 angina pectoris Type 2 diabetes mellitus with other specified complication, without long-term current use of insulin (HCC) Cigarette nicotine dependence without complication Tobacco dependency Tobacco use disorder Type 2 diabetes mellitus without complications (HCC) Essential (primary) hypertension Unspecified essential hypertension Essential hypertension Unspecified essential hypertension documented in this encounter [facility]* Diagnosis Tobacco dependency- Primary Tobacco use disorder Wellness examination Coronary artery disease involving newtok coronary artery 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 angina pectoris Other male erectile dysfunction Primary hypertension Unspecified essential hypertension Diabetes mellitus type II, non insulin dependent (HCC) Type II or unspecified type diabetes mellitus without mention of complication, not stated as uncontrolled Mixed hyperlipidemia Mixed hyperlipidemia Status post insertion of drug eluting coronary artery stent- Primary Diabetes mellitus type II, non insulin dependent (HCC) Type II or unspecified type diabetes mellitus without mention of complication, not stated as uncontrolled Mixed hyperlipidemia Mixed hyperlipidemia Tobacco dependency Tobacco use disorder Primary hypertension Unspecified essential hypertension Primary hypertension- Primary Unspecified essential hypertension Diabetes mellitus type II, non insulin dependent (HCC) Type II or unspecified type diabetes mellitus without mention of complication, not stated as uncontrolled Mixed hyperlipidemia Mixed hyperlipidemia Type 2 diabetes mellitus without complications (HCC) Tobacco dependency Tobacco use disorder Mixed hyperlipidemia- Primary Mixed hyperlipidemia Diabetes mellitus type II, non insulin dependent (HCC) Type II or unspecified type diabetes mellitus without mention of complication, not stated as uncontrolled Primary hypertension Unspecified essential hypertension Type 2 diabetes mellitus without complications (HCC) Tobacco dependency Tobacco use disorder Type 2 diabetes mellitus with other specified complication (HCC)- Primary Pure hyperglyceridemia Pure hyperglyceridemia Coronary artery disease involving newtok coronary artery 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 angina pectoris Primary hypertension Unspecified essential hypertension Mixed hyperlipidemia Mixed hyperlipidemia Cigarette nicotine dependence without complication Essential (primary) hypertension Unspecified essential hypertension Essential hypertension Unspecified essential hypertension Tobacco dependency Tobacco use disorder Primary hypertension- Primary Unspecified essential hypertension Cigarette nicotine dependence without complication Primary hypertension- Primary Unspecified essential hypertension Coronary artery disease involving newtok coronary artery 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 angina pectoris Type 2 diabetes mellitus with other specified complication, without long-term current use of insulin (HCC) Cigarette nicotine dependence without complication Tobacco dependency Tobacco use disorder Tobacco dependency Tobacco use disorder documented in this encounter [facility]* Diagnosis Tobacco dependency- Primary Tobacco use disorder Wellness examination Coronary artery disease involving newtok coronary artery 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 angina pectoris Other male erectile dysfunction Primary hypertension Unspecified essential hypertension Diabetes mellitus type II, non insulin dependent (HCC) Type II or unspecified type diabetes mellitus without mention of complication, not stated as uncontrolled Mixed hyperlipidemia Mixed hyperlipidemia Status post insertion of drug eluting coronary artery stent- Primary Diabetes mellitus type II, non insulin dependent (HCC) Type II or unspecified type diabetes mellitus without mention of complication, not stated as uncontrolled Mixed hyperlipidemia Mixed hyperlipidemia Tobacco dependency Tobacco use disorder Primary hypertension Unspecified essential hypertension Primary hypertension- Primary Unspecified essential hypertension Diabetes mellitus type II, non insulin dependent (HCC) Type II or unspecified type diabetes mellitus without mention of complication, not stated as uncontrolled Mixed hyperlipidemia Mixed hyperlipidemia Type 2 diabetes mellitus without complications (HCC) Tobacco dependency Tobacco use disorder Mixed hyperlipidemia- Primary Mixed hyperlipidemia Diabetes mellitus type II, non insulin dependent (HCC) Type II or unspecified type diabetes mellitus without mention of complication, not stated as uncontrolled Primary hypertension Unspecified essential hypertension Type 2 diabetes mellitus without complications (HCC) Tobacco dependency Tobacco use disorder Type 2 diabetes mellitus with other specified complication (HCC)- Primary Pure hyperglyceridemia Pure hyperglyceridemia Coronary artery disease involving newtok coronary artery 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 angina pectoris Primary hypertension Unspecified essential hypertension Mixed hyperlipidemia Mixed hyperlipidemia Cigarette nicotine dependence without complication Essential (primary) hypertension Unspecified essential hypertension Essential hypertension Unspecified essential hypertension Tobacco dependency Tobacco use disorder Primary hypertension- Primary Unspecified essential hypertension Cigarette nicotine dependence without complication Primary hypertension- Primary Unspecified essential hypertension Coronary artery disease involving newtok coronary artery 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 angina pectoris Type 2 diabetes mellitus with other specified complication, without long-term current use of insulin (HCC) Cigarette nicotine dependence without complication Tobacco dependency Tobacco use disorder Primary hypertension Unspecified essential hypertension Coronary artery disease involving newtok coronary artery 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 angina pectoris Type 2 diabetes mellitus with other specified complication, without long-term current use of insulin (HCC) Mixed hyperlipidemia Mixed hyperlipidemia Cigarette nicotine dependence without complication Essential (primary) hypertension Unspecified essential hypertension Essential hypertension Unspecified essential hypertension Generalized anxiety disorder Generalized anxiety disorder Tobacco dependency Tobacco use disorder documented [...] section and content) DATE CREATED AUTHOR 04/09/2022 [facility] DATE CREATED AUTHOR AUTHOR'S ORGANIZ ATION 10/21/2022 [facility] [place] DATE CREATED AUTHOR AUTHOR'S ORGANIZ ATION 01/21/2023 [facility] DATE CREATED AUTHOR AUTHOR'S ORGANIZ ATION 07/25/2024 [facility] DATE CREATED AUTHOR AUTHOR'S ORGANIZ ATION 04/01/2025 [facility] EPIC Care Teams (unrecognized sec tion and content) Team MemberRelationshipSpecialtyStart DateEnd Date Shaikh Linder MD [address] [place] [address] PCP - [place] Arrmqnkygw46/1/23 Umberto Lindo MD [address] [place] [address] [facility] Arcelia Pope NP [address] [address] [facility]03/21/24Team MemberRelationshipSpecialtyStart DateEnd Date Shaikh Linder MD [address] [place] [address] PCP - Candace Aobiiaxgus50/1/23 Umberto Lindo MD [address] [place] [address] PCP - Man [facility]03/21/24 Arcelia Pope NP [address] [place] [address] [facility]03/21/24Team MemberRelationshipSpecialtyStart DateEnd Date Shaikh Linder MD [address] [place] [address] PCP - [place] Lihidnzhvd69/1/23 Umberto Lindo MD [address] [place] [address] PCP - Man [facility]03/21/24 Arcelia Pope NP [address] [place] [address] [facility]03/21/24Team MemberRelationshipSpecialtyStart DateEnd Date Shaikh Linder MD [address] [place] [address] PCP - [place] Spbhvrnurp79/1/23 Umberto Lindo MD [address] [place] [address] PCP - Man [facility]03/21/24 Arcelia Pope NP [address] [place] [address] [facility]03/21/24Te MemberRelationshipSpecialtyStart DateEnd Date Shaikh Linder MD [address] [place] [address] PCP - [place] Hsxtkhnbrb02/1/23 Umberto Lindo MD [address] [place] [address] PCP - Man [facility]03/21/24 Arcelia Pope NP [address] [place] [address] [facility]03/21/24Te MemberRelationshipSpecialtyStart DateEnd Date Shaikh Linder MD [address] [place] [address] PCP - [place] Ecwurommop93/1/23 Umberto Lindo MD [address] [place] [address] PCP - Man [facility]03/21/24 Arcelia Pope, JT [address] [place] [address] [facility]03/21/24Te MemberRelationshipSpecialtyStart DateEnd Date Shaikh Linder MD [address] [place] [address] PCP - [place] Wyjpxmtgok67/1/23 Umberto Lindo MD [address] [place] [address] PCP - [facility]03/21/24 Arcelia Pope NP [address] [place] [address] [facility]03/21/24Team MemberRelationshipSpecialtyStart DateEnd Date Shaikh Linder MD [address] [place] [address] PCP - [place] Ptlksrkasb76/1/23 Umberto Lindo MD [address] [place] [address] PCP - [facility]03/21/24 Arcelia Pope, INDUSTRIAL HYGIENE TECHNICIAN [address] [place] [address] [facility]03/21/24Team MemberRelationshipSpecialtyStart DateEnd Date Shaikh Linder MD [address] [place] [address] PCP - [place] Wlnjswqeyp21/1/23 Umberto Lindo MD [address] [place] [address] PCP - [facility]03/21/24 Arcelia Pope NP [address] [place] [address] [facility]03/21/24Team MemberRelationshipSpecialtyStart DateEnd Date Shaikh Linder MD [address] [place] [address] PCP - [place] Ajpdmzeiwc08/1/23 Umberto Lindo MD [address] [place] [address] PCP - [facility]03/21/24 Arcelia Pope NP [address] [place] [address] [facility]03/21/24Team MemberRelationshipSpecialtyStart DateEnd Date Shaikh Linder MD [address] [place] [address] PCP - [place] Chfowglwtm90/1/23 Umberto Lindo MD [address] [place] [address] PCP - [facility]03/21/24 Arcelia Pope NP [address] [place] [address] [facility]03/21/24Team MemberRelationshipSpecialtyStart DateEnd Date Shaikh Linder MD [address] [place] [address] PCP - [place] Kczbbjbqsz31/1/23 Umberto Lindo MD [address] [place] [address] PCP - [facility] Medicine03/21/24 Arcelia Pope, JT [address] [place] [address] [facility]03/21/24Team MemberRelationshipSpecialtyStart DateEnd Date Shaikh Linder MD [address] [place] [address] PCP - [place] Qmncghzxgi65/1/23 Umberto Lindo MD [address] [place] [address] PCP - [facility]03/21/24 Arcelia Pope, JT [address] [place] [address] [facility]03/21/24Team MemberRelationshipSpecialtyStart DateEnd Date Shaikh Linder MD [address] [place] [address] PCP - [place] Wrnnadnnqa16/1/23 Umberto Lindo MD [address] [place] [address] PCP - [facility]03/21/24 Arcelia Pope NP [address] [place] [address] [facility]03/21/24Team MemberRelationshipSpecialtyStart DateEnd Date Shaikh Linder MD [address] [place] [address] PCP - [place] Snceygudqb09/1/23 Umberto Lindo MD [address] [place] [address] PCP - [facility]03/21/24 Arcelia Pope NP [address] [place] [address] [facility]03/21/24Team MemberRelationshipSpecialtyStart DateEnd Date Shaikh Linder MD [address] [place] [address] PCP - [place] Lcfcuwfzis78/1/23 Umberto Linod MD [address] [place] [address] PCP - [facility]03/21/24 Arcelia Pope NP [address] [place] [address] [facility]03/21/24Team MemberRelationshipSpecialtyStart DateEnd Date Umberto Lindo MD [address] [place] [address] PCP - GeneralFamily Medicine03/21/24 Arcelia Pope NP [address] [place] [address] [facility]03/21/24Team MemberRelationshipSpecialtyStart DateEnd Date Umberto Lindo MD [address] [place] [address] P[facility] - [facility]/21/24 Arcelia Pope NP [address] [place] [address] [facility]03/21/24Team MemberRelationshipSpecialtyStart DateEnd Date Umberto Lindo MD [address] [place] [address] P[facility] - [facility]03/21/24 Arcelia Pope NP [address] [place] [address] [facility]03/21/24Team MemberRelationshipSpecialtyStart DateEnd Date Umberto Lindo MD [address] [place] [address] PCP - [facility]03/21/24 Arcelia Pope NP [address] [place] [address] [facility]03/21/24Team MemberRelationshipSpecialtyStart DateEnd Date Umberto Lindo MD [address] [place] [address] PCP - [facility]03/21/24 Arcelia Pope NP [address] [place] [address] [facility]03/21/24Team MemberRelationshipSpecialtyStart DateEnd Date Umberto Lindo MD [address] [place] [address] PCP - [facility]03/21/24 Arcelia Pope NP [address] [place] [address] [facility]03/21/24 Reason for Visit (unrecogniz ed section and content) ReasonCommentsMed RefillReasonCommentsMed Change RequestReasonCommentsFollow-up ReasonCommentsFollow-up3w f/upReasonOnset DateCommentsMed Mekvpe6212/05/2024Reason Onset DateCommentsMed Roypur4612/30/2024ReasonCommentsHypertensionReasonOnset Date CommentsMed Rifuiq3102/11/2025ReasonCommentsDiabetes FOR RECORDS PERTAINING TO PATIENTS WHO ARE [...] BE BASED ON THE PRIMARY CLINICAL RECORDS. [facility] [employer] [facility] provides no warranty or guarantee of the accuracy or completeness of information in this document.
--- NOTE | 2025-07-23 12:45 | CT_ITS ---
The [address] [address] Patient Name: OMID MANNING MRN: [id number] date: 1975 Sex: M Assigned Patient Location: LAB Current Patient Location: Accession/Order Number: [id number] Exam Date: 07/23/2025 13:57 Report Date: 07/24/2025 09:23 At the request of: PRESTON RUVALCABA NP Procedure: CT abdomen pelvis w con CT ABDOMEN AND PELVIS WITH CONTRAST COMPARISON: 02/11/2022 CLINICAL DATA: Abdominal pain and lump on the right side in the epigastric region. Right groin lump. Spiral images were obtained through the abdomen and pelvis without contrast. Markers were placed at the sites of clinical concern. This CT exam was performed using one or more following dose reduction techniques: Automated exposure control, adjustment of the mA and/or kV according to patient size, or use of iterative reconstruction technique. Limited cuts through the lung bases show no contributory findings. There is fatty infiltration of the liver. No intrahepatic masses are identified. The gallbladder is contracted. No obvious calcified gallstones are seen. The spleen, pancreas and adrenal glands show no acute findings. There are symmetric renal nephrograms, without hydronephrosis. There is still a small stone at the lower pole of the left kidney and an exophytic cyst at the inferior pole on the right measuring 4 cm in size. Atherosclerotic plaque is present at the aorta and iliac arteries. There are a few small retroperitoneal lymph nodes. No ascites is seen. There is no evidence of ventral hernia or subcutaneous mass in the area of palpable concern in the epigastric region. There is a tiny umbilical hernia containing fat. The small bowel loops are not disproportionately distended. There is mild stool colon. There is minimal degenerative change at the spine. Images through the pelvis show no appendiceal inflammation. Small bowel loops are within normal limits. There is stool at the distal colon. No diverticular disease is seen. The prostate is not enlarged. The urinary bladder wall is borderline in thickness for the degree of distention. There are patulous inguinal rings containing fat, right slightly larger than left. There are small bilateral inguinal lymph nodes. No ascites is seen. CT/CT abdomen pelvis w con IMPRESSION: FATTY LIVER. LEFT NEPHROLITHIASIS AND RIGHT RENAL CYST. NO BOWEL OR URINARY TRACT OBSTRUCTION. NO ABNORMALITIES AT THE SITE OF PALPABLE CONCERN IN THE EPIGASTRIC REGION. SMALL FAT-CONTAINING INGUINAL HERNIAS, LARGER ON THE RIGHT. Impression dictated by: Nadia Ortez M.D. 07/24/2025 9:23 AM Dictation Location: [facility]ITALBook[facility] Electronically authenticated by: [id number] Y Date: 07/24/2025 09:23
[2025-07-23 12:55] LABS: Estimated GFR (African America >60 (>=60 mL/min/1.73m^2); Estimated GFR (Non-African Ame >60 (>=60 mL/min/1.73m^2)
== END 2025-07-23 12:27 | disposition home or self-care (01) ==
LOC: LAB 12:27
PROVIDERS: Pathology Anatomic Pathology & Clinical Pathology; PCP Nurse Practitioner; Visit Provider Nurse Practitioner
DX: Z01.818 Encounter for other preprocedural examination (principal); R10.9 Unspecified abdominal pain; K43.9 Ventral hernia without obstruction or gangrene; K76.0 Fatty (change of) liver, not elsewhere classified; N20.0 Calculus of kidney; N28.1 Cyst of kidney, acquired; K40.90 Unilateral inguinal hernia, without obstruction or gangrene, not specified as recurrent
CPT/HCPCS: 36415; 74177; 82565; Q9967